=== PATIENT | male | born 1950 | race Caucasian/White ===

== ENCOUNTER 2016-11-24 07:09 | Day surgery (SDC) | payer MEDICARE, OTHER ==
[2016-11-22 14:29] LABS: MCH 31.3 pg (26.0-34.0); MCHC 34.1 g/dL (31.0-37.0); MCV 91.9 fL (80.0-100.0); MEAN PLATELET VOLUME 10.7 fL (7.4-10.4); RBC 4.79 10x6/uL (4.20-6.10); RDW 13.5 % (11.5-14.5); WBC 6.5 10x3/uL (4.8-10.8)
[2016-11-22 14:41] LABS: ANION GAP 13.9 mmol/L (8-16); CALCIUM 8.8 mg/dL (8.5-10.1); CARBON DIOXIDE 30.6 mmol/L (21.0-32.0); CREATININE - SERUM 1.2 mg/dL (0.6-1.3); POTASSIUM - SERUM 4.5 mmol/L (3.5-5.1)
[~2016-11-24] VITALS: Ht 160 cm; Wt 75.8 kg
[~2016-11-24 07:09] MED LIST: ADVAIR 250/501 DISK INH; BLACK CHERRY PO; CALTRATE-600600 MG PO; CARAFATE1 G PO; COREG6.25 MG PO; DAILY MULTIVITA1 TA1 PO; DEXILANT60 MG; DEXILANT60 MG PO; FERROUS SULFAT325 MG PO; GLUCOPHAGE500 MG PO; ISOSORBIDE MONO30 M1 PO; K-DUR20 MEQ PO; LANTUS SOL100 UNIT/1 SC; LASIX80 MG PO; LIPITOR10 MG PO; LISINOPRIL10 MG PO; LYRICA25 MG PO; MIRALAX17 GM PO; NEURONTIN 300300 MG PO; NITROMIST8.5 GM SL; PLAVIX75 MG PO; PREDNISONE1 MG PO; PREDNISONE10 MG PO; PROAIR HFA8.5 GM INH; RYBIX ODT50 MG PO; SINGULAIR10 MG PO; SLOW RELEASE I160 MG PO; TEGRETOL XR200 M1 PO; TEGRETOL200 MG PO; ULTRAM50 MG PO; VOLTAREN25 MG PO; VYVANSE20 MG PO; ZYLOPRIM300 MG PO
[2016-11-24] MEDS ORDERED: KLONOPIN0.5 MG PO (08:47)
[2016-11-24 08:54] VITALS: Ht 160 cm; Wt 75.8 kg
[2016-11-24] MEDS ORDERED: ULTRAM50 MG PO (12:12)
--- NOTE | 2016-11-24 15:45 | NUR ---
1330 IV DC WITH CATHER TIP INTACT,W/O REDNESS
--- NOTE | 2016-11-27 15:31 | OP ---
PATIENT NAME: SILVA SEPULVEDA MEDICAL RECORD: [id number] :52 LOCATION:[facility] ADMISSION DATE: SURGEON: ESVIN PUENTE MD DATE OF OPERATION: 11/24/2016 PREOPERATIVE DIAGNOSIS: Olecranon bursitis -- olecranon rheumatoid bursitis. POSTOPERATIVE DIAGNOSIS: Olecranon bursitis -- olecranon rheumatoid bursitis. PROCEDURE: Removal of a large olecranon bursa/rheumatoid nodule. SURGEON: Esvin Puente MD ANESTHESIA: General. INTRAOPERATIVE COMPLICATIONS: None. SUMMARY OF PATHOLOGIC FINDINGS: Consistent with preoperative diagnosis, the patient had a very large olecranon bursa filled with what appeared to be rheumatoid nodule material. OPERATIVE SUMMARY IN DETAIL: After obtaining the appropriate preoperative orthopedic surgery consent as well as anesthetic consultation, evaluation and clearance, the patient was brought to the operating room and placed on the operating table in supine position. After adequate general laryngeal mask was administered, tourniquet was placed about the proximal aspect of the left upper extremity. The left upper extremity was then prepped and draped in routine sterile fashion. The arm was elevated and exsanguinated, tourniquet inflated to 250 mmHg. Elliptical incision was made across the top to take a portion of the skin down and then dissection was carried out medially and laterally, proximally and distally completely around the large mass taken down to the level of the olecranon tip. The triceps insertional tendon was not violated although it did have some rheumatoid material in it. This was removed in its entirety en bloc and sent to pathology for permanent specimen. The wound was then copiously irrigated and closed with #1 Vicryl, 2-0 Vicryl and skin lukas. Sterile dressings were applied. Tourniquet was deflated. Posterior splint was applied. The patient was awakened, taken to recovery in stable condition. All final needle and sponge counts were correct. TRANSINT:[id number] Voice Confirmation ID: [id number] DOCUMENT ID: [id number] ESVIN PUENTE MD at 1531 CC: [id number] DICTATION DATE: 11/24/16 1206 DRAWING KILN SUPERVISOR: 11/24/16 1328 [facility] 11/24/16 [facility] [address] [place] [address]
== END 2016-11-24 14:00 | disposition home or self-care (01) ==
LOC: D.OPS 07:09 → D.PAN 09:30 → D.OPS 14:00 → D.PAN 15:15
PROVIDERS: Anesthesiology
DX: M70.22 Olecranon bursitis, left elbow (principal); I25.10 Atherosclerotic heart disease of native coronary artery without angina pectoris; I11.0 Hypertensive heart disease with heart failure; I50.9 Heart failure, unspecified; J44.9 Chronic obstructive pulmonary disease, unspecified; Z01.812 Encounter for preprocedural laboratory examination

== ENCOUNTER 2017-02-12 07:10 | Day surgery (SDC) | payer MEDICARE ==
--- NOTE | 2017-01-31 13:04 | NUR ---
JONNIE APPT; PATIENT REPORTS CURRENTLY TAKING PLAVIX 75MG WITH LAST DOSE THIS AM. DR. PUENTE'S STAFF, JOHNNY NOTIFIED. STATES CASE WILL BE RESCHEDULED. PATIENT NOTIFIED.
[~2017-02-12] VITALS: Ht 160 cm; Wt 75.3 kg
[~2017-02-12 07:10] MED LIST changes: +KLONOPIN0.5 MG PO; +NEURONTIN600 MG PO
[2017-02-12 07:48] LABS: HEMATOCRIT 42.1 % (42.0-54.0); HEMOGLOBIN 13.7 g/dL (13.5-17.5); MCH 30.2 pg (26.0-34.0); MCHC 32.5 g/dL (31.0-37.0); MCV 92.9 fL (80.0-100.0); MEAN PLATELET VOLUME 10.6 fL (7.4-10.4); RBC 4.53 10x6/uL (4.20-6.10); RDW 13.1 % (11.5-14.5)
[2017-02-12 07:57] LABS: CARBON DIOXIDE 33.2 mmol/L (21.0-32.0); CREATININE - SERUM 1.1 mg/dL (0.6-1.3); POTASSIUM - SERUM 4.2 mmol/L (3.5-5.1)
[2017-02-12 08:04] VITALS: BP 128/77; Ht 160 cm; Wt 75.3 kg
--- NOTE | 2017-02-12 10:42 | NUR ---
PT HAD BLOCK BY ANESTHESIA TO RIGHT ARM, SEE ANESTHESIA NOTES.
[2017-02-12] MEDS ORDERED: MEPERIDINE HCL50 MG PO (11:00)
--- NOTE | 2017-02-12 13:18 | OP ---
PATIENT NAME: SILVA SEPULVEDA MEDICAL RECORD: [id number] :52 LOCATION:[facility] ADMISSION DATE: SURGEON: ESIVN PUENTE MD DATE OF OPERATION: 02/12/2017 PREOPERATIVE DIAGNOSIS: Large olecranon bursal mass, right elbow. POSTOPERATIVE DIAGNOSIS: Large olecranon bursal mass, right elbow. PROCEDURE: Excision of large olecranon bursal mass. SURGEON: Esvin Puente MD ANESTHESIA: General. INTRAOPERATIVE COMPLICATIONS: None. SUMMARY OF PATHOLOGIC FINDINGS: Consistent with the other side, this patient had a large rheumatoid mass that measured approximately 10 cm x 8 cm x 8 cm, somewhat smaller than the other side but large yet. OPERATIVE SUMMARY IN DETAIL: After obtaining the appropriate orthopedic surgery consent as well as anesthetic consultation evaluation and clearance, the patient was brought to the operating room and placed on the operating table in supine position. After general laryngeal mask was administered, tourniquet was placed about the proximal aspect of the right upper extremity. Right upper extremity was prepped and draped in a routine sterile fashion. The arm was elevated and exsanguinated, tourniquet inflated to 250 mmHg. An incision was made in an elliptical fashion with a very large mass to leave a large portion in the skin behind. Serial and sequential dissection medially and laterally and proximally and distally were taken down at the edges and the care was taken to involve any exposure of the ulnar nerve. Dissection was carried down to the subperiosteal level and careful dissection across and around the tip of the olecranon was followed by complete excision of the mass. This was then sent to pathology for permanent specimen. Wound was then copiously irrigated and closed with #1 Vicryl followed by skin lukas. Sterile pressure dressings were applied. Tourniquet was deflated. The patient was awakened and taken to the recovery room in stable condition. All final needle and sponge counts were correct. TRANSINT:[id number] Voice Confirmation ID: [id number] DOCUMENT ID: [id number] ESVIN PUENTE MD at 1318 CC: [id number] DICTATION DATE: 02/12/17 1210 FORENSIC ANTHROPOLOGIST: 02/12/17 1254 PRE [facility] [address] [place] [address]
--- NOTE | 2017-02-12 16:28 | NUR ---
1215 IV DC WITH CATHER TIP INTACT
== END 2017-02-12 13:00 | disposition home or self-care (01) ==
LOC: D.OPS 07:10
PROVIDERS: Anesthesiology
DX: M06.321 Rheumatoid nodule, right elbow (principal); M10.9 Gout, unspecified; Z01.812 Encounter for preprocedural laboratory examination

== ENCOUNTER 2017-02-13 14:22 | Emergency (ER) | payer MEDICARE ==
[2017-02-12 08:04] VITALS: BMI 29.4
[~2017-02-13 14:22] MED LIST changes: +MEPERIDINE HCL50 MG PO
[2017-02-13 14:52] LABS: BASOPHILS 0.6 % (0-2); EOSINOPHILS 1.9 % (0-7); HEMATOCRIT 40.1 % (42.0-54.0); HEMOGLOBIN 13.2 g/dL (13.5-17.5); IMMATURE GRANULOCYTES 0.4 % (0-5); MCH 30.3 pg (26.0-34.0); MCHC 32.9 g/dL (31.0-37.0); MCV 92.2 fL (80.0-100.0); MEAN PLATELET VOLUME 11.2 fL (7.4-10.4); MONOCYTES 10.7 % (2-11); NEUTROPHILS 65.4 % (40-80); RBC 4.35 10x6/uL (4.20-6.10); RDW 13.2 % (11.5-14.5)
[2017-02-13 14:55] LABS: PLATELET COUNT 233 10x3/uL (130-400); WBC 8.2 10x3/uL (4.8-10.8)
[2017-02-13 15:06] LABS: ALBUMIN 3.5 g/dL (3.4-5.0); ALKALINE PHOSPHATASE 82 U/L (46-116); ALT (SGPT) 26 U/L (10-68); BILIRUBIN - TOTAL 0.27 mg/dL (0.2-1.3); CALC OSMOLALITY 278 mosm/kg (275-300); CALCIUM 9.3 mg/dL (8.5-10.1); CARBON DIOXIDE 32.1 mmol/L (21.0-32.0); CHLORIDE - SERUM 100 mmol/L (98-107); GLUCOSE 116 mg/dL (74-106); POTASSIUM - SERUM 3.6 mmol/L (3.5-5.1); PROTEIN - SERUM 7.3 g/dL (6.4-8.2); SODIUM 139 mmol/L (136-145); eGFR NON AFRICAN AMERICAN 79 mL/min (90-120)
[2017-02-13 15:07] LABS: UREA NITROGEN 13 mg/dL (7-18)
[2017-02-13 16:57] LABS: CARBAMAZEPINE (TEGRETOL) 10.8 ug/mL (4.0-12.0); CREATINE KINASE 145 UL (21-232); MAGNESIUM - SERUM 1.9 mg/dL (1.8-2.4)
[2017-02-13 16:58] LABS: TROPONIN-I < 0.017 ng/mL (0.000-0.060)
[2017-02-13 17:38] LABS: APPEARANCE CLEAR (CLEAR); BILIRUBIN NEGATIVE (NEGATIVE); COLOR YELLOW (YELLOW); GLUCOSE NEGATIVE (NEGATIVE); KETONE NEGATIVE (NEGATIVE); NITRITE NEGATIVE (NEGATIVE); PROTEIN NEGATIVE (NEGATIVE); UROBILINOGEN NORMAL (NORMAL)
== END 2017-02-13 19:38 | disposition home or self-care (01) ==
LOC: D.ER 14:22
PROVIDERS: Emergency Medicine; Nurse Practitioner Family
DX: Z86.69 Personal history of other diseases of the nervous system and sense organs (principal); R55 Syncope and collapse; I50.9 Heart failure, unspecified; Z86.73 Personal history of transient ischemic attack (TIA), and cerebral infarction without residual deficits

== ENCOUNTER → 2017-02-16 09:45 | Outpatient (CLI) | payer MEDICARE ==
[2017-02-12 08:04] VITALS: BMI 29.4
== END | disposition home or self-care (01) ==
LOC: D.US 09:45
DX: M79.89 Other specified soft tissue disorders (principal)

== ENCOUNTER 2017-08-15 14:57 | Emergency (ER) | payer MEDICARE ==
[2017-02-12 08:04] VITALS: BMI 29.4
[2017-08-15 15:29] LABS: BASOPHILS 0.6 % (0-2); EOSINOPHILS 2.6 % (0-7); HEMATOCRIT 37.7 % (42.0-54.0); HEMOGLOBIN 12.9 g/dL (13.5-17.5); IMMATURE GRANULOCYTES 0.4 % (0-5); LYMPHOCYTES 30.2 % (15-50); MCH 31.2 pg (26.0-34.0); MCHC 34.2 g/dL (31.0-37.0); MCV 91.3 fL (80.0-100.0); MEAN PLATELET VOLUME 10.8 fL (7.4-10.4); MONOCYTES 9.5 % (2-11); NEUTROPHILS 56.7 % (40-80); RBC 4.13 10x6/uL (4.20-6.10); RDW 13.7 % (11.5-14.5); WBC 5.4 10x3/uL (4.8-10.8)
[2017-08-15 15:37] LABS: PLATELET COUNT 185 10x3/uL (130-400)
[2017-08-15 15:38] LABS: APPEARANCE CLEAR (CLEAR); COLOR YELLOW (YELLOW)
[2017-08-15 15:39] LABS: BILIRUBIN NEGATIVE (NEGATIVE); GLUCOSE NEGATIVE (NEGATIVE); KETONE NEGATIVE (NEGATIVE); NITRITE NEGATIVE (NEGATIVE); PROTEIN NEGATIVE (NEGATIVE); UROBILINOGEN NORMAL (NORMAL)
[2017-08-15 15:50] LABS: ALBUMIN 3.3 g/dL (3.4-5.0); ALKALINE PHOSPHATASE 69 U/L (46-116); ALT (SGPT) 23 U/L (10-68); BILIRUBIN - TOTAL 0.27 mg/dL (0.2-1.3); CALC OSMOLALITY 288 mosm/kg (275-300); CALCIUM 8.9 mg/dL (8.5-10.1); CARBON DIOXIDE 31.5 mmol/L (21.0-32.0); CHLORIDE - SERUM 104 mmol/L (98-107); GLUCOSE 111 mg/dL (74-106); PROTEIN - SERUM 6.4 g/dL (6.4-8.2); SODIUM 143 mmol/L (136-145); UREA NITROGEN 22 mg/dL (7-18); eGFR NON AFRICAN AMERICAN 79 mL/min (90-120)
[2017-08-15 15:54] LABS: CREATINE KINASE 72 UL (21-232)
[2017-08-15 15:55] LABS: TROPONIN-I < 0.017 ng/mL (0.000-0.060)
== END 2017-08-15 17:19 | disposition home or self-care (01) ==
LOC: D.ER 14:57
PROVIDERS: Family Medicine
DX: T67.5XXA Heat exhaustion, unspecified, initial encounter (principal); X58.XXXA Exposure to other specified factors, initial encounter; Y93.89 Activity, other specified; Y92.89 Other specified places as the place of occurrence of the external cause; R55 Syncope and collapse; R53.83 Other fatigue; R51 Headache; R11.0 Nausea

== ENCOUNTER 2017-09-20 17:33 | Emergency (ER) | payer MEDICARE ==
[~2017-09-20] VITALS: Ht 160 cm; Wt 74.8 kg
[2017-09-20 17:40] VITALS: Ht 160 cm; Wt 74.8 kg
[2017-09-20 18:17] LABS: BASOPHILS 0.5 % (0-2); EOSINOPHILS 1.2 % (0-7); HEMATOCRIT 39.9 % (42.0-54.0); HEMOGLOBIN 13.1 g/dL (13.5-17.5); IMMATURE GRANULOCYTES 0.3 % (0-5); LYMPHOCYTES 11.3 % (15-50); MCH 31.3 pg (26.0-34.0); MCHC 32.8 g/dL (31.0-37.0); MCV 95.5 fL (80.0-100.0); MEAN PLATELET VOLUME 10.6 fL (7.4-10.4); MONOCYTES 6.6 % (2-11); NEUTROPHILS 80.1 % (40-80); PLATELET COUNT 223 10x3/uL (130-400); RBC 4.18 10x6/uL (4.20-6.10); RDW 14.2 % (11.5-14.5); WBC 9.4 10x3/uL (4.8-10.8)
[2017-09-20 18:33] LABS: ALKALINE PHOSPHATASE 74 U/L (46-116); ALT (SGPT) 20 U/L (10-68); BILIRUBIN - TOTAL 0.24 mg/dL (0.2-1.3); CALC OSMOLALITY 285 mosm/kg (275-300); CALCIUM 8.7 mg/dL (8.5-10.1); CARBON DIOXIDE 32.9 mmol/L (21.0-32.0); CHLORIDE - SERUM 105 mmol/L (98-107); CREATININE - SERUM 1.7 mg/dL (0.6-1.3); GLUCOSE 104 mg/dL (74-106); POTASSIUM - SERUM 4.8 mmol/L (3.5-5.1); PROTEIN - SERUM 7.5 g/dL (6.4-8.2); SODIUM 142 mmol/L (136-145); UREA NITROGEN 21 mg/dL (7-18); eGFR NON AFRICAN AMERICAN 43 mL/min (90-120)
[2017-09-20 18:55] LABS: CKMB 0.9 U/L (0.0-3.6); TROPONIN-I < 0.017 ng/mL (0.000-0.060)
[2017-09-20 20:29] VITALS: BP 156/85
== END 2017-09-20 20:29 | disposition home or self-care (01) ==
LOC: D.ER 17:33
PROVIDERS: Family Medicine
DX: R00.2 Palpitations (principal); Z86.79 Personal history of other diseases of the circulatory system; E11.9 Type 2 diabetes mellitus without complications; I10 Essential (primary) hypertension; J44.9 Chronic obstructive pulmonary disease, unspecified

== ENCOUNTER 2017-11-09 08:09 | Emergency (ER) | payer MEDICARE ==
[~2017-11-09] VITALS: Ht 160 cm; Wt 75.9 kg
[2017-11-09 08:11] VITALS: Ht 160 cm; Wt 75.9 kg
[2017-11-09] MEDS ORDERED: NORCO 7.5/325 T1 TA1 PO (08:49)
[2017-11-09 09:55] VITALS: BP 156/81
== END 2017-11-09 09:55 | disposition home or self-care (01) ==
LOC: D.ER 08:09
DX: S89.91XA Unspecified injury of right lower leg, initial encounter (principal); X50.1XXA Overexertion from prolonged static or awkward postures, initial encounter; Y93.89 Activity, other specified; Y92.828 Other wilderness area as the place of occurrence of the external cause; Z86.73 Personal history of transient ischemic attack (TIA), and cerebral infarction without residual deficits; G40.909 Epilepsy, unspecified, not intractable, without status epilepticus; E11.9 Type 2 diabetes mellitus without complications; I10 Essential (primary) hypertension; K21.9 Gastro-esophageal reflux disease without esophagitis

== ENCOUNTER → 2017-11-27 13:18 | Outpatient (CLI) | payer MEDICARE, OTHER ==
[2017-11-09 08:11] VITALS: BMI 29.6
[~2017-11-27 13:18] MED LIST changes: +NORCO 7.5/325 T1 TA1 PO
== END | disposition home or self-care (01) ==
LOC: D.MRI 13:18
DX: M25.561 Pain in right knee (principal)

== ENCOUNTER 2018-02-09 19:57 | Inpatient (IN) | payer MEDICARE, OTHER ==
[~2018-02-09] VITALS: Ht 160 cm; Wt 77.1 kg
--- NOTE | ~2018-02-09 | HEMODYNAMI ---
PATIENT:SILVA SEPULVEDA MEDICAL RECORD: [id number] : 52 [facility] [address] [id number] ADMISSION DATE: 02/10/18 Generatedon:02/12/201812:39 Patient name: SILVA SEPULVEDA Patient #: [id number] SSN: D OB: 1950 Date of study: 02/12/2018 Page: Of Hemodynamic Procedure Report Patient Data Patient Demographics Procedure consent was obtained First Name: SILVA Gender: Male Last Name: COCO : 1950 [facility] Initial: L Age: 68 year(s) Patient #: [id number] Race: Additional ID: [id number] Contact details [address]: [address] [place] [address] State: [place] City: [place] Zip code: [address] Admission Admission Data Admission Date: 02/10/2018 Admission Time: 1:40 Room #: D.2125 Lab Results Lab Result Date: 02/12/2018 Lab Result Time: 0:00 Biochemistry Name Units Result Min Max BUN mg/dl 21 --(----)-* 7 18 Creatinine mg/dl 1 --(--*-)-- 0.6 1.3 CBC Name Units Result Min Max Hemoglobin g/dl 13.7 --(*---)-- 13.5 17.5 Procedure Procedure Types Cath Procedure Diagnostic Procedure LHC LH w/Coronaries FFR/IVUS Intra-Coronary IVUS Initial Sedation Charges Moderate Sedation up to 15 minutes PCI Procedure Coronary Stent Coronary Stent Initial Peripheral Cath Diagnostic Procedure Table Assembler Peripheral Procedures Atgcg-Jskgfmj-Bps-Off Four Vessel Arteriogram Procedure Description Procedure Date Procedure Date: 02/12/2018 Procedure Start Time: 12:15 Procedure End Time: 12:37 Procedure Staff Name Function Gunnar Lovell MD Performing Physician Candice Catherine RT Monitor Yuridia Tobar RT Scrub Ramone Betancourt RN Nurse Procedure Data Cath Procedure Fluoroscopy Diagnostic fluoroscopy Total fluoroscopy Time: 5.9 time: 5.9 min min Diagnostic fluoroscopy Total fluoroscopy dose: dose: 1181 mGy 1181 mGy Contrast Material Contrast Material Type Amount (ml) Isovue 300 132 Entry Location Entry Primary Successful Side Size Upsize Upsize Entry Closure Succes sful Closure Location (Fr) 1 (Fr) 2 (Fr) Remarks Device Remarks Femoral Right 5 Fr 6 Fr Exoseal artery Short Estimated blood loss: 5 ml Diagnostic catheters Device Type Used For End Catheter Placement MULTIPACK Pigtail 5 Fr Multi-vessel catheter Angiography MULTIPACK JL 4.0 5Fr Left Coronary catheter Angiography MULTIPACK 3DRC 5Fr Right Coronary catheter Angiography Procedure Complications No complications Procedure Medications Medication Administration Route Dosage 0.9% NaCl I.V. 100 ml/hr Oxygen etCO2 Nasal cannula 2 l/min Heparin Flush Bag added to field 2 bags (1000units/500ml NS) Lidocaine 2% added to field 20 Versed I.V. 1 mg Fentanyl I.V. 50 mcg Versed I.V. 1 mg Fentanyl I.V. 50 mcg Heparin Bolus I.V. 4000 units Hemodynamics Rest HGB: 13.7 (g/dl) Heart Rate: 77 (bpm) Pressure Samples Time Site Value (mmHg) Purpose Heart Use Rate(bpm) 12:18 LV 135/39,45 Snapshot 89 Snapshots Pre Cath Intra NCS Post Cath Vital Signs Time Heart Resp SPO2 etCO2 NIBP (mmHg) Rhythm Pain Sedation Rate (ipm) (%) (mmHg) Status Level (bpm) 11:57:30 86 19 98 16.5 143/83(121) NSR 0 (11) 10(A) , No pain 12:01:44 87 19 97 33.9 130/85(107) NSR 0 (11) 10(A) , No pain 12:05:54 87 14 97 39.2 139/84(121) NSR 0 (11) 10(A) , No pain 12:10:04 91 14 97 33.1 126/88(106) NSR 0 (11) 10(A) , No pain 12:14:12 90 12 97 32.4 121/82(100) NSR 0 (11) 10(A) , No pain 12:18:15 90 20 97 38.4 123/88(119) NSR 0 (11) 10(A) , No pain 12:22:23 85 20 97 34.6 134/78(112) NSR 0 (11) 10(A) , No pain 12:26:33 87 15 97 41.4 125/84(104) NSR 0 (11) 10(A) , No pain 12:30:43 86 16 96 36.9 129/73(104) NSR 0 (11) 10(A) , No pain 12:34:53 90 22 97 39.2 133/80(108) NSR 0 (11) 10(A) , No pain Medications Time Medication Route Dose Verified Delivered Reason Notes Effectiveness by by 11:55:41 0.9% NaCl I.V. 100 Ramone Ramone Per physician ml/hr Asia Betancourt RN RN 11:56:01 Oxygen etCO2 2 Ramone Ramone Per physician Nasal l/min Asia Betancourt cannula RN RN 11:56:13 Heparin Flush added 2 Ramone Ramone used for Bag to bags Asia Betancourt procedure (1000units/500ml field RN RN NS) 11:56:24 Lidocaine 2% added 20ml Ramone Ramone for local to vial Asia Betancourt anesthetic field RN RN 12:14:30 Versed I.V. 1 mg Ramone Ramone for sedation Asia Betancourt RN RN 12:14:39 Fentanyl I.V. 50 Ramone Ramone for sedation mcg Asia Betancourt RN RN 12:16:48 Versed I.V. 1 mg Ramone Ramone for sedation Asia Betancourt RN RN 12:16:54 Fentanyl I.V. 50 Ramone Ramone for sedation mcg Asia Betancourt RN RN 12:33:26 Heparin Bolus I.V. 4000 Ramone Ramone for units Asia Betancourt anticoagulation RN manager hospice Log Time Note 11:42:25 Informed consent obtained and on chart 11:43:11 Ramone Betancourt RN sent for patient. Start room use. 11:43:12 Time tracking: Regular hours (M-F 7:00 - 5:00) 11:43:17 Plan of Care:Hemodynamics will remain stable., Cardiac rhythm will remain stable., Comfort level will be maintained., Respiratory function will remain adequate., Patient/ family verbilizes understanding of procedure., Procedure tolerated without complication., Recovers from procedure without complications.. 11:45:58 Patient received from Med/Surg to CCL 2 Alert and oriented. Tansferred to table in Supine position. 11:45:59 Warm blankets applied, and everardo hugger turned on for patient comfort. 11:46:00 Correct patient and procedure confirmed by team. 11:46:01 ECG and BP/O2 sat monitors applied to patient. 11:55:41 0.9% NaCl 100 ml/hr I.V. was administered by Ramone Betancourt RN; Per physician; 11:56:01 Oxygen 2 l/min etCO2 Nasal cannula was administered by Ramone Betancourt RN; Per physician; 11:56:13 Heparin Flush Bag (1000units/500ml NS) 2 bags added to field was administered by Ramone Betancourt RN; used for procedure; 11:56:24 Lidocaine 2% 20ml vial added to field was administered by Ramone Betancourt RN; for local anesthetic; 11:56:28 Vital chart was started 11:57:37 Baseline sample Acquired. 11:57:41 Rhythm: sinus rhythm 11:57:43 Full Disclosure recording started 11:57:47 H&P Date Dictated: 02/12/2018 Within 30 days and on chart., H&P Addendum completed by physician on day of procedure. (MUST COMPLETE FOR ALL OUTPATIENTS). 11:57:48 Pre-procedure instructions explained to patient. 11:57:49 Pre-op teaching completed and patient verbalized understanding. 11:57:50 Family in waiting room. 11:57:51 Patient NPO since Midnight. 11:57:54 Is the patient allergic to Iodine/contrast media? No. 11:57:55 Was the patient premedicated? No 11:57:56 Is patient on blood thinner?Yes 11:57:58 ACC The patient was administered the following blood thiners within the last 24 hours: ACCPlavix 11:58:00 Patient diabetic? Yes. 11:58:01 If diabetic: On Metformin? No 11:58:04 Previous problem with sedation/anesthesia? No ? 11:58:05 Snore? Yes 11:58:06 Sleep apnea? Yes 11:58:07 Deviated septum? No 11:58:08 Opens mouth fully? Yes 11:58:09 Sticks out tongue? Yes 11:58:12 Airway obstruction? Yes copd 11:58:16 Dentures? Yes out 11:58:20 Pre procedure: right dorsailis pedis pulse 1+ Palpable, but thready & weak; easily obliterated 11:58:22 Pre procedure: left dorsailis pedis pulse 1+ Palpable, but thready & weak; easily obliterated 11:58:24 Patient pain scale 0/10 ?. 11:58:31 IV patent on arrival in right antecubital, left antecubital with 0.9% NaCl at KVO. 11:58:33 Lab results completed and on chart. 11:58:37 Right groin area was prepped with chlora-prep and draped in sterile fashion 11:58:37 Alarms reviewed by R. N. 11:58:38 Sharps counted by scrub and verified by R.N. 12:00:15 Lab Result : Hemoglobin 13.7 g/dl 12:00:15 Lab Result : Creatinine 1 mg/dl 12:00:15 Lab Result : BUN 21 mg/dl 12:00:48 Physician paged 12:12:59 Physician arrived 12:13:00 --------ALL STOP TIME OUT------ 12:13:00 Final Timeout: patient, procedure, and site verified with staff and physician. All members of the team are in agreement. 12:13:04 Right groin site verified by team. 12:13:07 Physical assessment completed. ASA score P 2 - A patient with mild systemic disease as per Gunnar Lovell MD. 12:13:11 Sedation plan: IV Moderate Sedation Medication:Versed, Fentanyl 12:13:17 Use device set Femoral Dx 12:13:18 ACIST Syringe (77857) opened to sterile field. 12:13:18 Bag Decanter (2002) opened to sterile field. 12:13:19 Medline Cath Pack ([id number]) opened to sterile field. 12:13:20 DIAGNOSTIC WIRE .035 260cm J wire (333827) opened to sterile field. 12:13:21 ACIST Hand Control (68336) opened to sterile field. 12:13:21 ACIST Manifold (84670) opened to sterile field. 12:13:22 DIAGNOSTIC Multipack 5Fr catheter set (OJ4214) opened to sterile field. 12:13:22 Tegaderm 4 x 4 (1626W) opened to sterile field. 12:13:23 SHEATH 5FR Vernalis (DZN128) opened to sterile field. 12:14:30 Versed 1 mg I.V. was administered by Ramone Betancourt RN; for sedation; 12:14:39 Fentanyl 50 mcg I.V. was administered by Ramone Betancourt RN; for sedation; 12:15:03 Procedure started. 12:15:11 Local anesthetic to right femoral artery with Lidocaine 2% by Gunnar Lovell MD.INITIAL ACCESS ONLY 12:15:21 A 5 Fr sheath was inserted into the Right Femoral artery 12:16:48 Versed 1 mg I.V. was administered by Ramone Betancourt RN; for sedation; 12:16:54 Fentanyl 50 mcg I.V. was administered by Ramone Betancourt RN; for sedation; 12:17:00 A MULTIPACK Pigtail 5 Fr catheter was advanced over the wire and used for Multi-vessel Angiography. 12:18:02 LV hemodynamics recorded. 12:18:03 LV gram done using ARREDONDO 12:18:07 Injector settings: Ml/sec: 5, Volume: 15, 12:18:13 EF : 60 % 12:18:19 Abdominal angiogram w/ runoff was performed. 12:18:26 Injector settings: Ml/sec: 10, Volume: 20, 12:19:40 Catheter removed. 12:20:18 A MULTIPACK JL 4.0 5Fr catheter was advanced over the wire and used for Left Coronary Angiography. 12:20:22 LCA angiography performed. 12:20:26 Injector settings: Ml/sec: 3, Volume: 6, 12:21:53 Baseline sample Acquired. 12:22:03 Catheter removed. 12:22:08 A MULTIPACK 3DRC 5Fr catheter was advanced over the wire and used for Right Coronary Angiography. 12:22:26 RCA angiography performed. 12:22:33 Injector settings: Ml/sec: 3, Volume: 6, 12:23:03 Bilateral carotid angiography performed. 12:23:31 Left subclavian angiography performed 12:27:17 Injector settings: Ml/sec: 3, Volume: 6, 12:27:18 Catheter removed. 12:27:19 Proceeding to intervention. 12::55 SHEATH 6FR Vernalis (UYS164) opened to sterile field. 12:27:56 INFLATOR Merit BasixCompak (ZX3468) opened to sterile field. 12:27:56 CHOICE PT Extra Support 182cm wire ([id number]) opened to sterile field. 12:27:57 Alexander [place] Eagleye IVUS Catheter (86309X) opened to sterile field. 12:27:57 GUIDE 6FR XBLAD 3.5 catheter ([id number]) opened to sterile field. 12:28:17 Sheath upsized to a 6 Fr Short. 12:28:24 6 Fr xblad 3.5 guide catheter was inserted over the wire 12::29 choice pt wire advanced. 12::34 Wire advanced across lesion. 12:28:40 IVUS catheter advanced over wire. 12:31:51 IVUS pass to LAD lesion performed. 12:31:52 IVUS catheter removed over wire. 12:33:26 Heparin Bolus 4000 units I.V. was administered by Ramone Betancourt RN; for anticoagulation; 12:33:46 Inflate balloon Inflation number: 1 A INTEGRITY RX 3.5 x 15 stent ([id number]) was prepped and advanced across the Mid LAD, then inflated to 13 CELESTINA for 0:10 (min:sec). 12:35:05 Stent catheter was removed intact over wire. 12:35:05 Wire removed. 12:35:06 Guide catheter removed. 12:35:12 EXOSEAL 6Fr (EX600) opened to sterile field. 12:35:22 Sheath removed intact; hemostasis achieved with Exoseal to the Right Femoral artery. 12:35:24 Procedure ended.(Physican Out) 12:35:38 Fluoroscopy time 05.90 minutes. 12:35:43 Fluoroscopy dose: 1181 mGy 12:35:43 Flurop Dose total: 1181 12:35:46 Contrast amount:Isovue 300 132ml. 12:35:53 Sharps counted by scrub and verified by R.N. 12:35:54 Insertion/operative site no bleeding no hematoma. 12:35:57 Post-op/insertion site Right Femoral artery dressed using a 4 x 4 and Tegaderm. 12:35:59 Post Procedure Pulses reassessed and unchanged 12:36:01 Post procedure rhythm: unchanged. 12:36:04 Estimated blood loss: 5 ml 12:36:05 Post procedure instruction explained to patient.Patient verbalizes understanding. 12:36:06 Patient needs reinforcement of post procedure teaching. 12:36:36 Procedure type changed to Cath procedure, Diagnostic procedure, LHC, LHC w/Coronaries, FFR/IVUS, Intra-Coronary IVUS Initial, Sedation Charges, Moderate Sedation up to 15 minutes, PCI procedure, Coronary Stent, Coronary Stent Initial, Peripheral Cath Diagnostic Procedure, Table Assembler Peripheral Procedures, Lkmea-Wwzlbxa-Err-Off, Four Vessel Arteriogram 12:36:37 Procedure and supply charges have been captured, reviewed, submitted and are correct. 12:36:41 Procedure Complication : No complications 12:36:43 Vital chart was stopped 12:36:43 See physician's report for complete and final results. 12:37:23 Report given to [facility]. 12:37:25 Patient transfered to [facility] with Stretcher. 12:37:27 Procedure ended. 12:37:27 Full Disclosure recording stopped 12:37:38 ACC-PCI Only Patient was given prescriptions, or instructed by Gunnar Lovell MD to start/continue the following medications upon discharge: Plavix 12:37:39 End room use (Document Last) Intervention Summary Intervention Notes Time ActionType Lesion and Equipment Action# Pressure Duration Attributes Used 12:33:46 Inflate Mid LAD INTEGRITY RX 1 13 00:10 balloon 3.5 x 15 stent ([id number]) Device Usage Item Name Manufacture Quantity Catalog Number Hospital Part Current Mini mal Lot# / Charge Number Stock Stock Serial# Code ACIST Acist 1 72148 336984 079412 743301 20 Syringe Medical (25825) Systems Inc Bag Decanter Microtek 1 2001S 995472 57090 180141 5 () Medical Inc. Medline Cath Medline 1 [id number] 488987 93362 185091 5 Pack ([id number]) DIAGNOSTIC St Juan Alberto 1 147299 470204 471409 775021 30 WIRE .035 260cm J wire (374352) ACIST Hand Acist 1 71195 792252 799025 363063 5 Control Medical (24710) Systems Inc ACIST Acist 1 55361 785489 269025 622660 5 Manifold Medical (13275) Systems Inc DIAGNOSTIC Cardinal 1 PI7410 055605 31503 036089 30 Solid Sound 5Fr catheter set (WU2639) Tegaderm 4 x 3M 1 1626W 507138 302722 722350 5 4 (1626W) SHEATH 5FR Terumo 1 OMC424 622691 632667 576167 40 Vernalis (KBV751) MULTIPACK Cardinal 1 855506 5 Pigtail 5 Fr Health catheter MULTIPACK JL Cardinal 1 280246 5 4.0 5Fr Health catheter MULTIPACK Cardinal 1 659220 5 3DRC 5Fr Health catheter SHEATH 6FR Terumo 1 NQG999 788247 384154 360004 40 Vernalis (PRW263) INFLATOR Merit 1 QQ4222 242501 248605 989269 15 [facility] Medical BasixCompak (RC0383) CHOICE PT [place] 1 [id number] 136315 963636 148274 5 Extra Scientific Support 182cm wire ([id number]) Alexander Alexander 1 50655C 498916 823136 911154 8 [place] Eagleye IVUS Catheter (98747C) GUIDE 6FR Cardinal 1 [id number] 947235 755682 957570 10 XBLAD 3.5 Health catheter (93140786) INTEGRITY RX Medtronic 1 [id number] 942336 796745 818617 5 [id number] 3.5 x 15 stent ([id number]) EXOSEAL 6Fr Cardinal 1 EX600 917639 085687 945647 10 (EX600) Health Signature Audit [place] Stage Time Signature Unsigned Intra-Procedure 02/12/2018 Candice Catherine 12:39:27 PM RT(R) Signatures Monitor : Candice Catherine RT Signature : Date : Time : [facility] [address] [place] [address]
--- NOTE | ~2018-02-09 | EC ---
PATIENT:SILVA SEPULVEDA DATE OF SERVICE: 02/10/18 SEX: M MEDICAL RECORD: [id number] DATE OF : 52 LOCATION:D.M2 D.212 AGE OF PATIENT: 68 ADMISSION DATE: 02/10/18 REFERRING PHYSICIAN: INTERPRETING PHYSICIAN: KIMBERLEY CARPIO MD ECHOCARDIOGRAM REPORT ECHO CHARGES 4 ECHO COMPLETE Date: 02/11/18 CLINICAL DIAGNOSIS: POSSIBLE EMBOLUS LEFT UPPER EXTREMITY - R/O PFO ECHOCARDIOGRAPHIC MEASUREMENTS (adult normal given) AC root (d.<3.7cm) 2.8 cm LV Septum d (<1.2 cm> 1.0 cm Valve Excursion 1.7 cm LV Septum (systole) 1.6 cm Left Atria (s.<4.0cm> 2.9 cm LVPW d(<1.2cm) 1.3 cm RV (d.<2.3cm) 2.5 cm LVPW (sytole) 1.7 cm LV diastole(<5.6CM) 3.5 cm MV E-F(>70mm/sec) cm LV systole 2.1 cm LVOT Diameter 1.6 cm MV exc.(>10mm) cm Est.ejection fraction (50-75%) % DOPPLER: LVIT cm/sec A 87.0 cm/sec E 57.0 cm/sec LA cm/sec RVSP 17.0 mmHg LVOT 90.0 cm/sec AOP1/2T m/s Asc. Ao 139 cm/sec RVOT 89.0 cm/sec RA cm/sec PA 101 cm/sec AV Gradient Peak 7.7 mmHg AV Mean 4.2 mmHg AV Area 1.1 cm MV Gradient Peak 4.5 mmHg MV Mean 1.6 mmHg MV Area cm COMMENTS: ECHO WITH BUBBLE STUDY Surgical Processor: 1 DELFINA SHINE Vortex Operator: 2 Dr. Wiggins TAPE# PACS Pericardial Effusion N DATE OF SERVICE: 02/11/2018 ECHOCARDIOGRAM WITH BUBBLE STUDY FINDINGS: 1. Left ventricular chamber size is within normal limits. Left ventricular systolic function is normal. Overall ejection fraction estimated at 60%. 2. Left atrium, right atrium, and right ventricle chamber sizes are within normal limits. 3. Valvular structures have normal structure and motion. ECHOCARDIOGRAM REPORT [id number] SILVA SEPULVEDA 4. Doppler interrogation reveals no significant valvular insufficiency or stenosis. 5. No evidence of pericardial effusion or left ventricular thrombus. 6. Bubble study was performed. There is no evidence of krwt-am-jfjba or zpdgq-hm-qsue shunt. 7. No cardiac source of neurologic emboli. TRANSINT:[id number] Voice Confirmation ID: [id number] DOCUMENT ID: [id number] KIMBERLEY CARPIO MD at 1704 CC: [id number] DICTATION DATE: 02/11/18 1307 MAINTENANCE REPAIRER: 02/11/18 [address] [facility] [address] [place] [address]
--- NOTE | ~2018-02-09 | OP ---
PATIENT NAME: SILVA SEPULVEDA MEDICAL RECORD: [id number] :52 LOCATION:D.M2 D.2125 ADMISSION DATE:02/10/18 SURGEON: KIMBERLEY CARPIO MD DATE OF OPERATION: 02/12/2018 PROCEDURES: 1. PTCA and stent, LAD. 2. Intravascular ultrasound. 3. Left heart catheterization. 4. Selective coronary angiography. 5. Left ventriculogram. INDICATION: Chest pain compatible with angina and coronary artery disease. PROCEDURE PERFORMED: After informed consent was obtained with detailed description of risks and benefits as well as alternative therapies, the patient elected to proceed with angiogram and angioplasty. The right femoral area was prepped and draped in normal sterile fashion. The right femoral artery was cannulated via modified Seldinger technique with placement of 6-Mohawk sheath. All catheters were exchanged through the sheath. FINDINGS: Left ventriculogram performed in standard 30-degree ARREDONDO view reveals good cardiac wall motion throughout all segments. Overall ejection fraction estimated at 60%. SELECTIVE CORONARY ANGIOGRAPHY: 1. Left main is with no significant angiographic disease. 2. Left anterior descending has 70% to 80% stenosis in the mid vessel, confirmed by intravascular ultrasound. 3. Left circumflex has moderate irregularities, but no flow-limiting stenosis. 4. Right coronary has moderate irregularities, but no flow-limiting stenosis. PTCA AND STENT OF THE LAD: The stent used was 3.5 x 15-mm Integrity. Result was 0% residual stenosis. OVERALL IMPRESSION: Successful PTCA and stent of the LAD, going from 70% to 80% initial stenosis to 0% residual. TRANSINT:[id number] Voice Confirmation ID: [id number] DOCUMENT ID: [id number] KIMBERLEY CARPIO MD at 1704 CC: [id number] DICTATION DATE: 02/12/18 1251 RAIL CAR WELDER: 02/12/18 1420 ADM IN [place] [id number] [place] [address]
--- NOTE | ~2018-02-09 | HP ---
PATIENT: SILVA SEPULVEDA MEDICAL RECORD: [id number] ACCOUNT: [id number] LOCATION:D.MS [id number] : 52 ADMISSION DATE: 02/10/18 PCP: No PCP HISTORY AND PHYSICAL EXAMINATION DATE OF ADMISSION: 02/10/2018. CHIEF COMPLAINT: Left arm pain and numbness and chest pain. HISTORY OF PRESENT ILLNESS: This is a 68-year-old white male who presented to the Emergency Department with acute onset of chest pain that started on 02/09/2018. He had a little shortness of breath, some nausea. Pain was more on the left side of his chest, it was more sharp to dull. He denies any trauma. He started having some pain and numbness all the way down his left arm into his hands as well. He was able to move his arm without difficulty. He presented to the Emergency Room where all his lab work looks pretty good, except he had really no palpable pulse in the distal radial artery on the left arm, a pulse was detected on Doppler exam. An arterial Doppler of the left arm was done showing monophasic waveform suggesting some degree of arterial disease. He is admitted. PAST MEDICAL HISTORY: He has had CVAs in the past. He has peripheral neuropathy, history of seizures, diabetes, hypertension, COPD, osteoarthritis, reflux, history of kidney stones, post-polio syndrome. PAST SURGICAL HISTORY: He states he had 16 surgeries on leg as a young child due to polio. He has had an appendectomy, hernia repair. The patient had angiogram done on 07/27/[address] Wiggins that showed mild coronary disease with 30% stenosis in the circumflex artery, which appeared unchanged from previous study. He has had no stents. He is continuing medical management for heart disease. ALLERGIES: SHELLFISH, IODINE, CODEINE. He states ASPIRIN causes him to "bleed out." He is allergic to TOMATOES. Reported allergy to MORPHINE (previous addiction). He states he cannot take IV DYE, although he did have dye with his angiogram in July of 2015. HOME MEDICATIONS: Tegretol 200 mg twice a day, Lyrica 50 mg twice a day, ProAir HFA inhaler p.r.n. wheezing, Lantus 20 units at bedtime, Dexilant 60 mg once a day, K-Dur 20 mEq once a day, allopurinol 150 mg once a day, Plavix 75 mg once a day, Lipitor 10 mg once a day, Singulair 10 mg once a day, carvedilol 6.25 mg twice a day, lisinopril 10 mg once a day, Lasix 80 mg once a day, gabapentin 600 mg twice a day, prednisone 1 mg once a day, iron sulfate twice a day, Klonopin 0.5 mg t.i.d. p.r.n. anxiety. HABITS: Former smoker, no alcohol or drugs, but he is a former drug user. SOCIAL HISTORY: He is single, disabled. He has a brother and a sister and mother that live in [place]. FAMILY HISTORY: Father at 66 of an ND. Mother is alive at 87. She has a history of heart trouble. REVIEW OF SYSTEMS: GENERAL: No major weight changes. HISTORY AND PHYSICAL [id number] SILVA SEPULVEDA HEENT: No particular sinus or allergy problems. RESPIRATORY: He has a history of COPD, though not on any chronic meds for that. CARDIAC: He has history of mild coronary artery disease followed by Dr. Wiggins. GASTROINTESTINAL: He has reflux followed by Dr. George. GENITOURINARY: Remote history of kidney stones. MUSCULOSKELETAL: He has had a generalized muscular aches and pains with Postpolio syndrome. NEUROLOGIC: He has had history of strokes and seizures. PSYCHIATRIC: He has some depression and anxiety. PHYSICAL EXAMINATION: VITAL SIGNS: Temperature 97.4, pulse 64, respirations 18, blood pressure 119/62. GENERAL: He is awake and alert. He does not appear to be in acute distress. SKIN: Warm and dry. HEENT: Grossly within normal limits. NECK: Supple. No JVD or bruit. HEART: Regular rate and rhythm without murmur. LUNGS: Clear. ABDOMEN: Soft, flat, nontender. EXTREMITIES: No edema. The distal radial pulse on the right upper extremity is 2+. The distal radial pulse on the left upper extremity, unable to palpate though it is obtainable with Doppler. NEUROLOGIC: He moves both arms and hands without difficulty. LABORATORY DATA: CBC is unremarkable. CMP is unremarkable. INR 1.2. Troponin is normal. CRP is normal. Chest x-ray shows no acute process. CT of the head shows no acute intracranial problem. The arterial Doppler of left upper extremity shows monophasic waveforms. Flow was detected throughout the left upper extremity, but the monophasic waveforms suggest some degree of arterial disease. ASSESSMENT: 1. Left upper extremity arterial blockage. 2. Diabetes. 3. Coronary artery disease, mild. 4. Hypertension. PLAN: Dr. Ervin has been consulted. We will monitor blood pressure and diabetes. Other tests and procedures as warranted. TRANSINT:[id number] Voice Confirmation ID: [id number] DOCUMENT ID: [id number] MAGUI FORD MD at 2144 CC: [id number] DICTATION DATE: 02/10/18 1013 SENIOR EXAMINER: 02/10/18 1027 ADM IN [facility] [address] [id number]
--- NOTE | ~2018-02-09 | OP ---
PATIENT NAME: SILVA SEPULVEDA MEDICAL RECORD: [id number] :52 LOCATION:D.M2 D.2125 ADMISSION DATE:02/10/18 SURGEON: KIMBERLEY CARPIO MD DATE OF OPERATION: 02/12/2018 PROCEDURES: 1. Four-vessel carotid and vertebral angiography with subclavian angiography. 2. Aortofemoral runoff. 3. Abdominal aortography. INDICATION: Possible subclavian stenosis, peripheral vascular disease. PROCEDURE IN DETAIL: After informed consent was obtained with detailed description of risks and benefits as well as alternative therapies, the patient elected to proceed with angiogram. The right femoral area had a preexisting sheath from cardiac intervention. All catheters were exchanged through this sheath. FINDINGS: Abdominal aortography was performed. The catheter was pulled down for aortofemoral runoff. Abdominal aortography reveals no significant abdominal aortic disease. No dissection or aneurysm formation. RIGHT LEG: A. Iliac: The common internal and external iliacs have mild plaquing, none greater than 20% to 30%. No flow-limiting stenosis. B. Femoral system: The common superficial and deep femoral have no significant angiographic disease. C. Popliteal and infrapopliteal vessels are widely patent with good 3-vessel runoff to the foot. LEFT LEG: A. Iliac: The common internal and external iliacs have mild plaquing, none greater than 20% to 30%. No flow-limiting stenosis. B. Femoral system: The common superficial and deep femoral have no significant angiographic disease. C. Popliteal and infrapopliteal vessels are widely patent with good 3-vessel runoff to the foot. FOUR-VESSEL CAROTID AND VERTEBRAL ANGIOGRAPHY: There was subselection of each subclavian as well as the left carotid. FINDINGS: RIGHT SIDE: 1. The subclavian is tortuous with superficial calcium, but there is no subclavian stenosis. 2. The common internal and external carotids have mild plaquing, but no flow-limiting stenosis. 3. The vertebral artery has no significant stenosis. LEFT SYSTEM: 1. The common internal and external carotids have mild plaquing, none greater than 20%. No flow-limiting stenosis. 2. The vertebral artery is small with no significant disease. 3. The subclavian on the left has no significant stenosis. OPERATIVE REPORT [id number] SILVA SEPULVEDA OVERALL IMPRESSION: Minimal peripheral vascular disease is present. No subclavian stenosis is present. Only tortuosity and superficial calcium of the subclavian. TRANSINT:[id number] Voice Confirmation ID: [id number] DOCUMENT ID: [id number] KIMBERLEY CARPIO MD at 1704 CC: [id number] DICTATION DATE: 02/12/18 1253 COTTON BAG SEWER: 02/12/18 1429 ADM IN [facility] [address] [place] [address]
[~2018-02-09 19:57] MED LIST changes: -LANTUS SOL100 UNIT/1 SC; +LANTUS SOLOSTAR PE SQ
[2018-02-09 21:23] LABS: BASOPHILS 0.5 % (0-2); EOSINOPHILS 2.7 % (0-7); HEMATOCRIT 41.1 % (42.0-54.0); HEMOGLOBIN 14.1 g/dL (13.5-17.5); IMMATURE GRANULOCYTES 0.7 % (0-5); LYMPHOCYTES 34.6 % (15-50); MCH 30.6 pg (26.0-34.0); MCHC 34.3 g/dL (31.0-37.0); MCV 89.2 fL (80.0-100.0); MEAN PLATELET VOLUME 10.9 fL (7.4-10.4); MONOCYTES 10.1 % (2-11); NEUTROPHILS 51.4 % (40-80); PLATELET COUNT 222 10x3/uL (130-400); RBC 4.61 10x6/uL (4.20-6.10); RDW 14.3 % (11.5-14.5); WBC 7.4 10x3/uL (4.8-10.8)
[2018-02-09 21:28] LABS: INR 1.02 (0.85-1.17); PROTIME 12.9 SECONDS (11.6-15.0)
[2018-02-09 22:04] LABS: ALBUMIN 3.5 g/dL (3.4-5.0); ALKALINE PHOSPHATASE 89 U/L (46-116); ALT (SGPT) 25 U/L (10-68); BILIRUBIN - TOTAL 0.16 mg/dL (0.2-1.3); CALC OSMOLALITY 283 mosm/kg (275-300); CALCIUM 9.1 mg/dL (8.5-10.1); CARBON DIOXIDE 31.6 mmol/L (21.0-32.0); CHLORIDE - SERUM 104 mmol/L (98-107); CREATININE - SERUM 0.9 mg/dL (0.6-1.3); GLUCOSE 87 mg/dL (74-106); POTASSIUM - SERUM 4.3 mmol/L (3.5-5.1); PROTEIN - SERUM 6.8 g/dL (6.4-8.2); SODIUM 142 mmol/L (136-145); UREA NITROGEN 17 mg/dL (7-18); eGFR NON AFRICAN AMERICAN 89 mL/min (90-120)
[2018-02-09 22:11] LABS: C-REACTIVE PROTEIN 0.5 mg/dL (0.0-0.9); CKMB 0.9 U/L (0.0-3.6); CREATINE KINASE 82 UL (21-232)
[2018-02-09 22:13] LABS: TROPONIN-I < 0.017 ng/mL (0.000-0.060)
[2018-02-09 22:30] VITALS: BP 148/88
[2018-02-10 00:13] VITALS: BP 135/70
[2018-02-10 03:35] VITALS: BP 119/62; BMI 29.8
[2018-02-10 05:58] VITALS: BP 119/62
[2018-02-10 11:28] VITALS: BP 142/65
[2018-02-10 14:20] VITALS: Ht 160 cm; Wt 77.1 kg
[2018-02-10 17:23] VITALS: BP 130/88
[2018-02-10 22:09] VITALS: BP 136/87
[2018-02-11 01:51] VITALS: BP 134/79
[2018-02-11 05:13] LABS: BASOPHILS 0.4 % (0-2); EOSINOPHILS 2.2 % (0-7); HEMATOCRIT 40.9 % (42.0-54.0); HEMOGLOBIN 13.7 g/dL (13.5-17.5); IMMATURE GRANULOCYTES 0.4 % (0-5); LYMPHOCYTES 34.7 % (15-50); MCH 30.1 pg (26.0-34.0); MCHC 33.5 g/dL (31.0-37.0); MCV 89.9 fL (80.0-100.0); MEAN PLATELET VOLUME 10.6 fL (7.4-10.4); MONOCYTES 8.2 % (2-11); NEUTROPHILS 54.1 % (40-80); PLATELET COUNT 198 10x3/uL (130-400); RBC 4.55 10x6/uL (4.20-6.10); RDW 14.3 % (11.5-14.5); WBC 6.7 10x3/uL (4.8-10.8)
[2018-02-11 05:21] LABS: CALC OSMOLALITY 283 mosm/kg (275-300); CALCIUM 8.5 mg/dL (8.5-10.1); CARBON DIOXIDE 29.5 mmol/L (21.0-32.0); CHLORIDE - SERUM 104 mmol/L (98-107); GLUCOSE 106 mg/dL (74-106); SODIUM 141 mmol/L (136-145); UREA NITROGEN 21 mg/dL (7-18); eGFR NON AFRICAN AMERICAN 79 mL/min (90-120)
[2018-02-11 05:24] LABS: POTASSIUM - SERUM 3.6 mmol/L (3.5-5.1)
[2018-02-11 05:31] VITALS: BP 135/81
[2018-02-11 08:14] VITALS: BP 125/76
[2018-02-11 19:00] VITALS: BP 111/66
[2018-02-12 00:45] VITALS: BP 118/60
[2018-02-12 04:39] LABS: BASOPHILS 0.3 % (0-2); EOSINOPHILS 0.9 % (0-7); HEMATOCRIT 41.4 % (42.0-54.0); HEMOGLOBIN 14.1 g/dL (13.5-17.5); IMMATURE GRANULOCYTES 0.6 % (0-5); MCH 30.5 pg (26.0-34.0); MCHC 34.1 g/dL (31.0-37.0); MCV 89.4 fL (80.0-100.0); MEAN PLATELET VOLUME 10.6 fL (7.4-10.4); MONOCYTES 3.1 % (2-11); NEUTROPHILS 80.1 % (40-80); PLATELET COUNT 178 10x3/uL (130-400); RBC 4.63 10x6/uL (4.20-6.10); RDW 14.1 % (11.5-14.5); WBC 6.8 10x3/uL (4.8-10.8)
[2018-02-12 04:48] LABS: APTT 47.7 SECONDS (22.8-39.4); INR 1.07 (0.85-1.17); PROTIME 13.4 SECONDS (11.6-15.0)
[2018-02-12 04:57] VITALS: BP 113/70
[2018-02-12 05:06] LABS: CALC OSMOLALITY 280 mosm/kg (275-300); CALCIUM 8.5 mg/dL (8.5-10.1); CARBON DIOXIDE 30.1 mmol/L (21.0-32.0); CHLORIDE - SERUM 102 mmol/L (98-107); GLUCOSE 137 mg/dL (74-106); POTASSIUM - SERUM 4.1 mmol/L (3.5-5.1); SODIUM 137 mmol/L (136-145); eGFR NON AFRICAN AMERICAN 79 mL/min (90-120)
[2018-02-12 05:21] LABS: UREA NITROGEN 27 mg/dL (7-18)
[2018-02-12 08:11] VITALS: BP 127/75
[2018-02-12 11:08] VITALS: BP 184/94
[2018-02-12 16:40] VITALS: BP 74/50
[2018-02-12 20:48] VITALS: BP 130/70
[2018-02-13 01:06] VITALS: BP 114/60
[2018-02-13 05:11] VITALS: BP 148/72
[2018-02-13 07:57] VITALS: BP 162/69
[2018-02-13 10:46] LABS: BASOPHILS 0.5 % (0-2); EOSINOPHILS 1.1 % (0-7); HEMATOCRIT 39.5 % (42.0-54.0); HEMOGLOBIN 13.3 g/dL (13.5-17.5); IMMATURE GRANULOCYTES 0.5 % (0-5); LYMPHOCYTES 28.3 % (15-50); MCH 30.4 pg (26.0-34.0); MCHC 33.7 g/dL (31.0-37.0); MCV 90.2 fL (80.0-100.0); MEAN PLATELET VOLUME 10.6 fL (7.4-10.4); MONOCYTES 6.6 % (2-11); PLATELET COUNT 171 10x3/uL (130-400); RBC 4.38 10x6/uL (4.20-6.10); RDW 14.6 % (11.5-14.5); WBC 6.5 10x3/uL (4.8-10.8)
[2018-02-13 10:55] LABS: CALC OSMOLALITY 290 mosm/kg (275-300); CALCIUM 8.2 mg/dL (8.5-10.1); CHLORIDE - SERUM 106 mmol/L (98-107); GLUCOSE 162 mg/dL (74-106); POTASSIUM - SERUM 3.8 mmol/L (3.5-5.1); SODIUM 143 mmol/L (136-145); eGFR NON AFRICAN AMERICAN 79 mL/min (90-120)
[2018-02-13 10:56] LABS: UREA NITROGEN 18 mg/dL (7-18)
[2018-02-13 11:30] VITALS: BP 145/64
[2018-02-13 18:08] VITALS: BP 141/66
[2018-02-13 20:43] VITALS: BP 122/70
[2018-02-14] VITALS: BP 94/62
[2018-02-14 04:00] VITALS: BP 142/80
[2018-02-14 06:00] LABS: BASOPHILS 0 % (0-2); EOSINOPHILS 0.2 % (0-7); HEMOGLOBIN 13.3 g/dL (13.5-17.5); IMMATURE GRANULOCYTES 0.5 % (0-5); LYMPHOCYTES 14.4 % (15-50); MCH 30.3 pg (26.0-34.0); MCHC 34.1 g/dL (31.0-37.0); MCV 88.8 fL (80.0-100.0); MEAN PLATELET VOLUME 10.7 fL (7.4-10.4); MONOCYTES 1.4 % (2-11); NEUTROPHILS 83.5 % (40-80); PLATELET COUNT 202 10x3/uL (130-400); RBC 4.39 10x6/uL (4.20-6.10); RDW 14.5 % (11.5-14.5)
[2018-02-14 06:13] LABS: WBC 4.4 10x3/uL (4.8-10.8)
[2018-02-14 06:15] LABS: CALC OSMOLALITY 288 mosm/kg (275-300); CALCIUM 8.3 mg/dL (8.5-10.1); CARBON DIOXIDE 27.6 mmol/L (21.0-32.0); CHLORIDE - SERUM 107 mmol/L (98-107); GLUCOSE 151 mg/dL (74-106); POTASSIUM - SERUM 4.1 mmol/L (3.5-5.1); SODIUM 142 mmol/L (136-145); UREA NITROGEN 21 mg/dL (7-18); eGFR NON AFRICAN AMERICAN 79 mL/min (90-120)
[2018-02-14 08:02] VITALS: BP 179/86
[2018-02-14 11:45] VITALS: BP 148/73
[2018-02-14 16:28] VITALS: BP 153/69
== END 2018-02-14 20:17 | disposition home or self-care (01) | DRG 249 ==
LOC: D.ER 19:57 → D.MS 02-10 01:40 → D.M2 02-10 01:40
PROVIDERS: Family Medicine; General Practice
PROC: 02703DZ Dilation of Coronary Artery, One Artery with Intraluminal Device, Percutaneous Approach (ICD-10-PCS; principal; 2018-02-12)
PROC: 4A023N7 Measurement of Cardiac Sampling and Pressure, Left Heart, Percutaneous Approach (ICD-10-PCS; 2018-02-12)
PROC: B2111ZZ Fluoroscopy of Multiple Coronary Arteries using Low Osmolar Contrast (ICD-10-PCS; 2018-02-12)
PROC: B2151ZZ Fluoroscopy of Left Heart using Low Osmolar Contrast (ICD-10-PCS; 2018-02-12)
PROC: B240ZZ3 Ultrasonography of Single Coronary Artery, Intravascular (ICD-10-PCS; 2018-02-12)
PROC: B31C1ZZ Fluoroscopy of Bilateral External Carotid Arteries using Low Osmolar Contrast (ICD-10-PCS; 2018-02-12)
PROC: B3121ZZ Fluoroscopy of Left Subclavian Artery using Low Osmolar Contrast (ICD-10-PCS; 2018-02-12)
PROC: B3181ZZ Fluoroscopy of Bilateral Internal Carotid Arteries using Low Osmolar Contrast (ICD-10-PCS; 2018-02-12)
PROC: B41J1ZZ Fluoroscopy of Other Lower Arteries using Low Osmolar Contrast (ICD-10-PCS; 2018-02-12)
DX: I25.119 Atherosclerotic heart disease of native coronary artery with unspecified angina pectoris (principal); G45.9 Transient cerebral ischemic attack, unspecified; E11.51 Type 2 diabetes mellitus with diabetic peripheral angiopathy without gangrene; I70.208 Unspecified atherosclerosis of native arteries of extremities, other extremity; I11.0 Hypertensive heart disease with heart failure; I50.9 Heart failure, unspecified; J44.9 Chronic obstructive pulmonary disease, unspecified; M19.90 Unspecified osteoarthritis, unspecified site; G14 Postpolio syndrome; E78.5 Hyperlipidemia, unspecified; K64.9 Unspecified hemorrhoids; M48.02 Spinal stenosis, cervical region; M54.12 Radiculopathy, cervical region; Z86.73 Personal history of transient ischemic attack (TIA), and cerebral infarction without residual deficits; Z87.891 Personal history of nicotine dependence

== ENCOUNTER 2018-02-18 14:16 | Emergency (ER) | payer MEDICARE, OTHER ==
[~2018-02-18] VITALS: Ht 160 cm; Wt 75.9 kg
--- NOTE | ~2018-02-18 | CN ---
PATIENT NAME:SILVA SEPULVEDA MEDICAL RECORD: [id number] : 52 LOCATION:D.ER ADMIT DATE: ACCOUNT: [id number] CONSULTING PHYSICIAN: KIMBERLEY CARPIO MD REFERRING PHYSICIAN: MIGDALIA PALENCIA MD DATE OF CONSULTATION: 02/18/2018 ADMITTING DIAGNOSES: 1. Chest pain. 2. Coronary artery disease. 3. Recent percutaneous transluminal coronary angioplasty stent left anterior descending. 4. Hyperlipidemia. 5. Hypertension. HISTORY OF PRESENT ILLNESS: This is a gentleman who was in last week underwent PTCA stent of the LAD, has no other concomitant disease in the coronaries. His carotids have no significant disease and his legs have no significant disease. He presented with some recurrent chest discomfort that he has been having since the procedure. He has been taking his Plavix. REVIEW OF SYSTEMS: The patient reports easy bruising but reports no swollen glands. The patient reports no fever, no night sweats, no significant weight gain, no significant weight loss. No significant exercise tolerance. The patient reports no dry eyes, no irritation, no vision change. Patient reports no difficulty hearing and no ear pain. Patient reports no frequent nose bleeds or nose and sinus problems. Patient reports on arm pain on exertion. No shortness of breath while lying down. No history of heart murmur. Patient reports no cough, no wheezing or coughing up blood. Patient reports no abdominal pain, no vomiting. Normal appetite. No diarrhea and not vomiting blood. No nausea and no constipation. Patient reports no incontinence. No difficulty urinating. No hematuria. No increased frequency. Patient reports no muscle aches. No weakness, no arthralgias, no back pain. No swelling of the extremities. Patient reports no abnormal mole, no jaundice, no rashes. Reports no loss of consciousness. No weakness and no numbness. No seizures, dizziness, or headaches. The patient reports no depression, no sleep disturbance, feeling safe in a relationship and no alcohol abuse. Patient reports on fatigue. Reports no runny nose or sinus pressure. No itching, no hives, and no frequent sneezing. PHYSICAL EXAMINATION: GENERAL APPEARANCE: Well-nourished, well-developed, appears stated age. Level of distress, comfortable. PSYCHIATRIC: Mental status, alert, normal affect. Orientation, oriented to time, place and person. EYES: Lids and conjunctiva, noninjected. No discharge, no pallor. ENT: Lips, teeth, gums, normal dentition. Oropharynx, no cyanosis, no pallor. NECK: Carotid arteries, bilateral normal upstroke, no bruits, no thrills. JUGULAR VEINS: No jugular venous pressure or distention. CERVICAL LYMPH NODES: Nontender, nonenlarged. THYROID: Not enlarged. Nontender. No nodules. LUNGS: Respiratory effort, unlabored. CHEST: Normal curvature. No thoracic deformity. No chest wall tenderness. Percussion, resonant. Auscultation, clear. No wheezes, no rales, no rhonchi. CARDIOVASCULAR: Precordial exam, nondisplaced. No heaves or pericardial CONSULT REPORT [id number] COCOSILVA L thrills. Rate and rhythm, regular. Heart sounds, normal S1, normal S2. No S3, no gallop, no rub. Systolic murmur, not heard. Diastolic murmur, not heard. EXTREMITIES: No cyanosis, no edema. Peripheral pulses, full and equal in all extremities, except as noted. No bruits appreciated. ABDOMEN: Soft, nondistended. Normal aorta. No bruit. Nontender. No masses. Liver, nontender, no hepatomegaly. Spleen, nontender, no splenomegaly. MUSCULOSKELETAL: No joint tenderness. No joint swelling. No erythema. NEUROLOGICAL: Normal gait, normal strength, normal tone. SKIN: Warm and dry. OVERALL IMPRESSION: Chest pain. At this time, whatever residual pain he has is noncardiac. His EKG is normal. No other cardiac workup or treatment is necessary at this time. TRANSINT:[id number] Voice Confirmation ID: [id number] DOCUMENT ID: [id number] KIMBERLEY CARPIO MD at 1025 CC: [id number] DICTATION DATE: 02/18/18 1533 MAKE READY WORKER: 02/19/18 0027 DEP ER 02/18/18 [id number] [place] [address]
[2018-02-18 14:27] VITALS: Ht 160 cm; Wt 75.9 kg
[2018-02-18 15:17] LABS: BASOPHILS 0.6 % (0-2); EOSINOPHILS 1.9 % (0-7); HEMATOCRIT 41.8 % (42.0-54.0); HEMOGLOBIN 14.5 g/dL (13.5-17.5); IMMATURE GRANULOCYTES 0.7 % (0-5); LYMPHOCYTES 25.1 % (15-50); MCH 30.9 pg (26.0-34.0); MCHC 34.7 g/dL (31.0-37.0); MCV 89.1 fL (80.0-100.0); MEAN PLATELET VOLUME 10.8 fL (7.4-10.4); MONOCYTES 7.5 % (2-11); NEUTROPHILS 64.2 % (40-80); PLATELET COUNT 232 10x3/uL (130-400); RBC 4.69 10x6/uL (4.20-6.10); RDW 14.4 % (11.5-14.5); WBC 7.2 10x3/uL (4.8-10.8)
[2018-02-18 15:21] LABS: APTT 43.2 SECONDS (22.8-39.4); INR 1.05 (0.85-1.17); PROTIME 13.2 SECONDS (11.6-15.0)
[2018-02-18 15:28] LABS: ALBUMIN 3.4 g/dL (3.4-5.0); ALKALINE PHOSPHATASE 72 U/L (46-116); ALT (SGPT) 44 U/L (10-68); CALC OSMOLALITY 282 mosm/kg (275-300); CALCIUM 8.3 mg/dL (8.5-10.1); CARBON DIOXIDE 31.5 mmol/L (21.0-32.0); CHLORIDE - SERUM 101 mmol/L (98-107); CREATININE - SERUM 1.2 mg/dL (0.6-1.3); GLUCOSE 130 mg/dL (74-106); POTASSIUM - SERUM 3.8 mmol/L (3.5-5.1); PROTEIN - SERUM 6.8 g/dL (6.4-8.2); SODIUM 139 mmol/L (136-145); UREA NITROGEN 21 mg/dL (7-18); eGFR NON AFRICAN AMERICAN 64 mL/min (90-120)
[2018-02-18 15:42] LABS: CKMB 0.4 U/L (0.0-3.6); CREATINE KINASE 55 UL (21-232); MAGNESIUM - SERUM 1.9 mg/dL (1.8-2.4)
[2018-02-18 15:46] LABS: TROPONIN-I 0.087 ng/mL (0.000-0.060)
[2018-02-18 18:22] LABS: CKMB 0.7 U/L (0.0-3.6); CREATINE KINASE 53 UL (21-232)
[2018-02-18 19:00] VITALS: BP 151/95
== END 2018-02-18 19:00 | disposition home or self-care (01) ==
LOC: D.ER 14:16
PROVIDERS: Family Medicine
DX: R07.9 Chest pain, unspecified (principal); I25.10 Atherosclerotic heart disease of native coronary artery without angina pectoris; R06.02 Shortness of breath

== ENCOUNTER 2018-03-07 05:55 | Outpatient (CLI) | payer MEDICARE, OTHER ==
[~2018-03-07] VITALS: Ht 160 cm; Wt 74.5 kg
--- NOTE | ~2018-03-07 | HEMODYNAMI ---
PATIENT:SILVA SEPULVEDA MEDICAL RECORD: [id number] : 52 LOCATION:[facility] ADMISSION DATE: 03/07/18 Generatedon:03/07/201810:13 Patient name: SILVA SEPULVEDA Patient #: [id number] SSN: D OB: 1950 Date of study: 03/07/2018 Page: Of Hemodynamic Procedure Report Patient Data Patient Demographics Procedure consent was obtained First Name: SILVA Gender: Male Last Name: COCO : 1950 Middle Initial: L Age: 68 year(s) Patient #: [id number] Race: Additional ID: [id number] Contact details Address: [address] [place] [address] State: [place] City: [place] Zip code: [address] Past Medical History Allergies Allergen Reaction Date Comments Reported Other allergy 03/07/2018 shellfish and tomatoes Admission Admission Data Admission Date: 03/07/2018 Admission Time: 5:55 Procedure Procedure Types Cath Procedure Peripheral Cath Diagnostic Procedure Miscellaneous Procedure Description Procedure Date Procedure Date: 03/07/2018 Procedure Start Time: 8:55 Procedure Staff Name Function Geraldo Chamberlain MD Performing Physician Neftali Stratton RT Monitor Symone Newell RN Nurse Aimee Marie Scrub Procedure Data Cath Procedure Fluoroscopy Diagnostic fluoroscopy Total fluoroscopy Time: time: 12.2 min 12.2 min Diagnostic fluoroscopy Total fluoroscopy dose: 346 dose: 346 mGy mGy Contrast Material Contrast Material Type Amount (ml) Isovue 300 100 Entry Location Entry Primary Successful Side Size Upsize Upsize Entry Closure Succes sful Closure Location (Fr) 1 (Fr) 2 (Fr) Remarks Device Remarks Femoral Right 5 Fr 6 Fr Exoseal artery Long Diagnostic catheters Device Type Used For End Catheter Placement Merit ULTRA BOLUS FLUSH 5Fr 90CM catheter ([id number]) Procedure Medications Medication Administration Route Dosage Heparin Flush Bag added to field 3 bags (1000units/500ml NS) Lidocaine 1% added to field 20 Fentanyl I.V. 50 mcg Versed I.V. 1 mg Versed I.V. 1 mg Fentanyl I.V. 50 mcg Heparin Bolus I.V. 5000 units Hemodynamics Rest Heart Rate: 75 (bpm) Snapshots Pre Cath Intra NCS Post Cath Vital Signs Time Heart Resp SPO2 etCO2 NIBP (mmHg) Rhythm Pain Sedation Rate (ipm) (%) (mmHg) Status Level (bpm) 8:02:52 77 24 97 0 176/90(141) NSR 0 (11) 10(A) , No pain 8:07:24 73 13 100 37.9 171/89(134) NSR 0 (11) 10(A) , No pain 8:11:52 74 11 100 29.7 177/98(130) NSR 0 (11) 10(A) , No pain 8:16:23 73 12 100 38.7 177/94(140) NSR 0 (11) 10(A) , No pain 8:20:55 75 13 99 38.6 180/94(143) NSR 0 (11) 10(A) , No pain 8:25:30 69 12 100 37.9 165/85(142) NSR 0 (11) 10(A) , No pain 8:30:00 70 11 100 40.1 176/86(130) NSR 0 (11) 10(A) , No pain 8:34:24 73 14 100 33.4 168/90(133) NSR 0 (11) 10(A) , No pain 8:38:57 74 12 100 36.4 172/86(130) NSR 0 (11) 10(A) , No pain 8:43:29 69 9 100 40.9 184/93(144) NSR 0 (11) 10(A) , No pain 8:48:10 76 21 100 34.9 170/82(146) NSR 0 (11) 10(A) , No pain 8:52:36 77 13 99 40.1 177/99(142) NSR 0 (11) 10(A) , No pain 8:57:10 70 11 99 36.4 175/92(138) NSR 0 (11) 10(A) , No pain 9:01:33 74 10 98 35.6 162/101(138) NSR 0 (11) 8(A) , No pain 9:06:32 74 8 96 41.6 Measuring NSR 0 (11) 8(A) , No pain 9:06:58 74 11 98 40.9 171/99(157) NSR 0 (11) 8(A) , No pain 9:11:29 82 8 98 47.6 177/101(137) NSR 0 (11) 8(A) , No pain 9:16:28 75 11 99 42.4 Measuring NSR 0 (11) 8(A) , No pain 9:17:05 76 10 99 43.9 184/95(133) NSR 0 (11) 8(A) , No pain 9:21:43 73 15 99 43.9 184/94(152) NSR 0 (11) 8(A) , No pain 9:26:20 71 15 99 45.4 192/97(150) NSR 0 (11) 8(A) , No pain 9:30:48 75 10 98 40.9 176/94(144) NSR 0 (11) 9(A) , No pain 9:35:22 74 12 100 40.2 188/101(143) NSR 0 (11) 9(A) , No pain 9:40:03 76 13 99 40.2 186/91(166) NSR 0 (11) 9(A) , No pain 9:44:31 73 19 100 38.7 173/90(134) NSR 0 (11) 9(A) , No pain 9:48:56 72 13 100 37.9 172/97(142) NSR 0 (11) 9(A) , No pain 9:53:28 67 23 100 37.2 175/82(138) NSR 0 (11) 9(A) , No pain 9:57:48 73 10 100 40.2 149/82(119) NSR 0 (11) 9(A) , No pain 10:02:47 71 14 100 34.9 Measuring NSR 0 (11) 9(A) , No pain 10:03:08 72 12 100 36.4 176/97(138) NSR 0 (11) 9(A) , No pain 10:07:42 68 13 100 28.2 173/91(128) NSR 0 (11) 9(A) , No pain 10:12:41 64 13 100 36.5 Measuring NSR 0 (11) 9(A) , No pain 10:13:14 65 12 100 39.4 173/93(132) NSR 0 (11) 9(A) , No pain Medications Time Medication Route Dose Verified Delivered Reason Notes Effect iveness by by 8:34:54 Heparin Flush added 3 Geraldo Geraldo used for Bag to bags Cintia Chamberlain MD procedure (1000units/500ml field GRANGER NS) 8:35:08 Lidocaine 1% added 20ml Geraldo Chow used for to vial Cintia Chamberlain MD procedure field GRANGER 8:57:52 Fentanyl I.V. 50 Geraldo Symone for mcg Reece Chamberlain RN sedation 8:58:02 Versed I.V. 1 mg Geraldo Symone for Reece Chamberlain RN sedation 9:00:39 Versed I.V. 1 mg Geraldo Symone for Reece Chamberlain RN sedation 9:00:45 Fentanyl I.V. 50 Geraldo Acostaody for mcg Reece Chamberlain RN sedation 9:26:38 Heparin Bolus I.V. 5000 Geraldo Symone units Reece Chamberlain RN, MD Procedure Log Time Note 7:45:53 Neftali Stratton RT (R) (CV) sent for patient. Start room use. 7:46:00 Time tracking: Regular hours (M-F 7:00 - 5:00) 7:46:06 Plan of Care:Hemodynamics will remain stable., Cardiac rhythm will remain stable., Comfort level will be maintained., Respiratory function will remain adequate., Patient/ family verbilizes understanding of procedure., Procedure tolerated without complication., Recovers from procedure without complications.. 7:46:11 Patient received from Outpatients to IR Alert and oriented. Tansferred to table in Supine position. 7:46:12 Correct patient and procedure confirmed by team. 7:46:15 Signed procedure consent form obtained from patient. 7:46:16 ECG and BP/O2 sat monitors applied to patient. 7:46:17 Full Disclosure recording started 7:46:18 - 7:46:22 H&P Date Dictated: 03/07/2018 Within 30 days and on chart.. 7:46:27 H&P Date Dictated: 03/07/2018 H&P Addendum completed by physician on da y of procedure. (MUST COMPLETE FOR ALL OUTPATIENTS). 7:46:28 Pre-procedure instructions explained to patient. 7:46:28 Pre-op teaching completed and patient verbalized understanding. 7:46:30 Family in waiting room. 7:46:31 Patient NPO since Midnight. 7:47:23 Patient allergic to Other allergyshellfish and tomatoes 7:47:35 Is the patient allergic to Iodine/contrast media? Yes. 7:47:39 Was the patient premedicated? Yes 7:47:41 Is patient on blood thinner?Yes 7:47:45 ACC The patient was administered the following blood thiners within the last 24 hours: ACCAspirin, ACCPlavix 7:47:47 Patient diabetic? Yes. 7:47:49 If diabetic: On Metformin? No 7:47:51 - 7:47:52 ----Pre-sedation anethsthesia assessment.---- 7:47:55 Previous problem with sedation/anesthesia? No ? 7:47:57 Snore? Yes 7:47:58 Sleep apnea? Yes 7:47:59 Deviated septum? No 7:48:01 Opens mouth fully? Yes 7:48:03 Sticks out tongue? Yes 7:48:12 Airway obstruction? Yes copd 7:48:16 Dentures? Yes out 7:48:20 - 7:48:23 Use device set IR Diagnostic 7:48:24 ACIST Syringe (13227) opened to sterile field. 7:48:24 ACIST Hand Control (44425) opened to sterile field. 7:48:25 ACIST Manifold (78669) opened to sterile field. 7:48:25 Bag Decanter (2001S) opened to sterile field. 7:48:25 Sterile Angiographic Pack opened to sterile field. 7:48:26 Tegaderm 4 x 4 (1626W) opened to sterile field. 8:01:33 Baseline sample Acquired. 8:01:33 Vital chart was started 8:01:41 Pre procedure: right dorsailis pedis pulse Doppler 8:01:45 Pre procedure: left dorsailis pedis pulse Doppler 8:01:48 Pre procedure: right posterior tibial pulse Doppler 8:01:51 Pre procedure: left posterior tibial pulse Doppler 8:01:56 Patient pain scale 0/10 no pain. 8:02:02 IV patent on arrival in right forearm with 0.9% NaCl at O. 8:02:03 Sharps counted by scrub and verified by R.N. 8:02:04 Alarms reviewed by R. N. 8:34:54 Heparin Flush Bag (1000units/500ml NS) 3 bags added to field was administered by Geraldo Chamberlain MD; used for procedure; 8:35:08 Lidocaine 1% 20ml vial added to field was administered by Geraldo Chamberlain MD; used for procedure; 8:37:15 Right groin area was prepped with chlora-prep and draped in sterile fashion 8:53:15 Physician arrived 8:53:15 --------ALL STOP TIME OUT------ 8:53:16 Final Timeout: patient, procedure, and site verified with staff and physician. All members of the team are in agreement. 8:53:18 Right groin site verified by team. 8:53:22 Sedation plan: IV Moderate Sedation Medication:Versed, Fentanyl 8:55:07 Procedure started. 8:55:11 Local anesthetic to right femoral artery with Lidocaine 1% by Geraldo Chamberlain MD.INITIAL ACCESS ONLY 8:55:20 Access obtained with 4Fr micropunture. 8:55:57 A 5 Fr sheath was inserted into the Right Femoral artery 8:56:05 A Merit ULTRA BOLUS FLUSH 5Fr 90CM catheter ([id number]) was advanced over the wire and used for . 8:56:06 DOC .035 wire (G58043) opened to sterile field. 8:56:07 SHEATH 5FR Conway (URQ086) opened to sterile field. 8:56:07 Micropuncture VSI 4FR kit opened to sterile field. 8:57:52 Fentanyl 50 mcg I.V. was administered by Symone Newell RN; for sedation ; 8:58:02 Versed 1 mg I.V. was administered by Symone Newell RN; for sedation; 9:00:39 Versed 1 mg I.V. was administered by Symone Newell RN; for sedation; 9:00:45 Fentanyl 50 mcg I.V. was administered by Symone Newell RN; for sedation ; 9:01:31 AMPLATZ Super Stiff 75cm wire ([id number]) opened to sterile field. 9:07:23 TORQUE DEVICE PLASTIC .038 ( TD01) opened to sterile field. 9:07:23 GLIDE CATHETER 5FR ANGLED 100cm (CG508) opened to sterile field. 9:07:24 GLIDE WIRE MERIT Angled 260cm ([id number]) opened to sterile field. 9:07:56 INFLATOR BasixTOUCH (HF2131) opened to sterile field. 9:10:09 PATEL 260 wire (U40287) opened to sterile field. 9:11:16 Cook RAABE 6FR. 90cm guide sheath opened to sterile field. 9:13:20 Sheath upsized to a 6 Fr Long. 9:26:38 Heparin Bolus 5000 units I.V. was administered by Symone Newell RN; ; 9:31:27 Inflate balloon Inflation number: 1 A Evercross 3 x 4 x 135 Balloon ([id number]) was prepped and advanced across the Proximal Subclavian, Left, then inflated to 14 CELESTINA for 0:08 (min:sec). 9:32:13 SHEATH 6FR Conway (FWB588) opened to sterile field. 9:36:38 Protege GPS 10x 40 X 120 Stent ([id number]) was deployed across Proximal Subclavian, Left . 9:59:47 EXOSEAL 6Fr (EX600) opened to sterile field. 10:00:01 Sheath removed intact; hemostasis achieved with Exoseal to the Right Femoral artery. 10:00:06 Procedure ended.(Physican Out) 10:00:43 Fluoroscopy time 12.20 minutes. 10:00:47 Fluoroscopy dose: 346 mGy 10:00:47 Flurop Dose total: 346 10:02:29 Sharps counted by scrub and verified by R.N. 10:02:30 Insertion/operative site no bleeding no hematoma. 10:02:34 Post-op/insertion site Right Femoral artery dressed using a 4 x 4 and Tegaderm. 10:02:38 Post right femoral artery:stable 10:02:39 Post Procedure Pulses reassessed and unchanged 10:02:41 Post procedure instruction explained to patient.Patient verbalizes understanding. 10:02:42 Procedure and supply charges have been captured, reviewed, submitted an d are correct. 10:06:18 Contrast amount:Isovue 300 100ml. 10:13:22 Report given to Outpatients. 10:13:26 Patient transfered to Outpatients with Stretcher. 10:13:47 Vital chart was stopped Intervention Summary Intervention Notes Time ActionType Lesion and Equipment Used Action# Pressure Duration Attributes 9:31:27 Inflate Proximal Evercross 3 x 4 x 1 14 00:08 balloon Subclavian, 135 Balloon Left ([id number]) 9:36:38 Deploy self Proximal Protege GPS 10x 40 1 expanding Subclavian, X 120 Stent stent Left ([id number]) Device Usage Item Name Manufacture Quantity Catalog Number [facility] Part [facility] Minimal Lot# / Charge Number Stock Stock Serial# Code ACIST Syringe Acist 1 84027 004449 184519 989 647 20 (35924) [employer] Inc ACIST Hand Control Acist 1 61433 321151 960565 990 072 5 (96002) [employer] Inc ACIST Manifold Acist 1 07937 894868 807559 990 089 5 (55141) Medical Systems Inc Bag Decanter Microtek 1 2001S 079579 10232 988 359 5 (2001S) Medical Inc. Sterile Cardinal 1 [id number] 313860 998 432 5 Angiographic Pack Health Tegaderm 4 x 4 3M 1 1626W 719107 168266 993 546 5 (1626W) Merit ULTRA BOLUS Merit 1 [id number] 652906 999 937 5 FLUSH 5Fr 90CM Medical catheter ([id number]) DOC .035 wire Cook Medical 1 A59694 089185 999 560 5 (V60856) SHEATH 5FR Terumo 1 YWN055 212371 587681 996 039 5 Conway (VLJ649) Micropuncture VSI VSI VASCULAR 1 7266V 155330 999 410 5 4FR kit SOLUTIONS AMPLATZ Super Otisco 1 [id number] 845560 768377 999 903 5 [id number] Stiff 75cm wire Scientific ([id number]) TORQUE DEVICE Otisco 1 TD01 966233 226055 999 407 5 PLASTIC .038 ( Scientific TD01) GLIDE CATHETER 5FR Terumo 1 CG508 810150 34833 999 890 4 ANGLED 100cm (CG508) GLIDE WIRE MERIT Merit 1 [id number] 755786 707681 999 980 5 [id number] Angled 260cm Medical ([id number]) INFLATOR Merit 1 BZ8207 141959 987571 999 830 5 [facility] Medical (SM9041) PATEL 260 wire Cook Medical 1 Z27799 021932 15584 999 644 5 (P14567) Cook RAABE 6FR. Cook Medical 1 J00585 370852 999 946 5 90cm guide sheath Evercross 3 x 4 x Medtronic 1 [id number] 876998 792850 999 995 5 [id number] 135 Balloon ([id number]) SHEATH 6FR Terumo 1 XVL912 870215 958581 996 355 40 Conway (WAL503) Protege GPS 10x 40 Medtronic 1 [id number] 436334 230390 999 995 5 [id number] X 120 Stent [id number] ([id number]) EXOSEAL 6Fr Cardinal 1 EX600 647493 272225 997 246 10 [id number] (EX600) Health Signature Audit [place] Stage Time Signature Unsigned Intra-Procedure 03/07/2018 Neftali 10:13:44 AM Shuffield RT (R) (CV) Signatures Monitor : Neftali Signature : Shuffield RT Date : Time : [address] [place] [address]
[2018-03-07 06:17] LABS: BASOPHILS 0 % (0-2); EOSINOPHILS 0 % (0-7); LYMPHOCYTES 15.9 % (15-50); MCH 30.7 pg (26.0-34.0); MCHC 34.1 g/dL (31.0-37.0); MCV 89.9 fL (80.0-100.0); MEAN PLATELET VOLUME 10.5 fL (7.4-10.4); NEUTROPHILS 82.1 % (40-80); PLATELET COUNT 216 10x3/uL (130-400); RBC 4.56 10x6/uL (4.20-6.10); RDW 13.7 % (11.5-14.5)
[2018-03-07 06:32] LABS: CALC OSMOLALITY 286 mosm/kg (275-300); CALCIUM 8.9 mg/dL (8.5-10.1); CARBON DIOXIDE 28.5 mmol/L (21.0-32.0); CHLORIDE - SERUM 104 mmol/L (98-107); CREATININE - SERUM 0.9 mg/dL (0.6-1.3); POTASSIUM - SERUM 4.4 mmol/L (3.5-5.1); SODIUM 142 mmol/L (136-145); UREA NITROGEN 11 mg/dL (7-18); eGFR NON AFRICAN AMERICAN 89 mL/min (90-120)
[2018-03-07 06:33] LABS: GLUCOSE 192 mg/dL (74-106)
[2018-03-07 06:42] LABS: INR 1.05 (0.85-1.17); PROTIME 13.2 SECONDS (11.6-15.0)
[2018-03-07 06:49] VITALS: Ht 160 cm; Wt 74.5 kg
--- NOTE | 2018-03-07 14:09 | NUR ---
DR. MART SPOKE TO PT REAGRDING PROCEDURE. STATES PT IS READY FOR DC. DC INSTRUCTIONS GIVEN TO PT. STATES UNDERSTANDING. DC'D IV CATH FULLY INTACT.
--- NOTE | 2018-03-07 14:13 | NUR ---
PT LEFT UNIT VIA WC AT 1413
== END 2018-03-07 14:13 | disposition home or self-care (01) ==
LOC: D.SP 05:55 → D.RAD 08:00 → D.SP 08:00
PROVIDERS: General Practice
DX: I70.208 Unspecified atherosclerosis of native arteries of extremities, other extremity (principal); Z01.812 Encounter for preprocedural laboratory examination

== ENCOUNTER 2018-12-26 06:30 | Day surgery (SDC) | payer MEDICARE ==
[2018-12-24 10:04] LABS: HEMATOCRIT 43.6 % (42.0-54.0); HEMOGLOBIN 13.8 g/dL (13.5-17.5); MCH 27.6 pg (26.0-34.0); MCHC 31.7 g/dL (31.0-37.0); MCV 87.2 fL (80.0-100.0); MEAN PLATELET VOLUME 10.7 fL (7.4-10.4); RDW 15.1 % (11.5-14.5); WBC 5.4 10x3/uL (4.8-10.8)
[2018-12-24 10:33] LABS: ANION GAP 12.4 mmol/L (8-16); CALCIUM 8.5 mg/dL (8.5-10.1); CARBON DIOXIDE 30.4 mmol/L (21.0-32.0); CREATININE - SERUM 1.2 mg/dL (0.6-1.3); POTASSIUM - SERUM 4.8 mmol/L (3.5-5.1)
[~2018-12-26] VITALS: Ht 160 cm; Wt 77.4 kg
[2018-12-26] VITALS (11 sets, daily range): BP systolic 122–159; BP diastolic 58–86; BMI 28.7; BMI 29.8
[~2018-12-26 06:30] MED LIST changes: +LANTUS SOL100 UNIT/1 SC; -LANTUS SOLOSTAR PE SQ; +LISINOPRIL20 MG PO
--- NOTE | 2018-12-26 08:09 | NUR ---
MH CONSULT CALLED TO DIRECTOR OF CASEWORK DEPARTMENT. MH HAS COME UP AND DONE EVALUATION. PATIENT CLEARED.
--- NOTE | 2018-12-26 08:18 | NUR ---
DR. CHAVARRIA NOTIFIED AND REVIEWED PT'S BEHAVIOR AND ASSESSMENT RESULTS. PT IS A LOW RISK PER DR. CHAVARRIA. DR. CHAVARRIA STATED TO GIVE RESOURCES TO PT AT TIME OF DISCHARGE. NO FURTHER ORDERS AT THIS TIME. RESOURCES REVIEWED WITH PT AND HE VERBALIZED UNDERSTANDING.
--- NOTE | 2018-12-26 15:40 | NUR ---
ACCEPTED CARE OF THIS PT. PT RESTING IN BED, ALERT AND ANSWERING ALL QUESTIONS. INCISION NOTED TO RIGHT NECK. DRESSING C/D/I. NO SIGNS OF HEMATOMA FORMATION NOTED AT THIS TIME. TONGUE MIDLINE. PT DENIES ANY NUMBNESS TO FINGERS AT THIS TIME. HOB ELEVATED AT 45. DENIES ANY NEEDS AT THIS TIME. WILL CONT TO FOLLOW POC
--- NOTE | 2018-12-26 16:12 | OP ---
PATIENT NAME: SILVA SEPULVEDA MEDICAL RECORD: [id number] :52 LOCATION:[facility] D.2307 ADMISSION DATE: SURGEON: KASHIF STARR MD DATE OF OPERATION: 12/26/2018 PREOPERATIVE DIAGNOSES: Osteophyte formation and disc herniation at C4-C5 and C5-6. POSTOPERATIVE DIAGNOSES: Osteophyte formation and disc herniation at C4-C5 and C5-6. PROCEDURE: Anterior cervical discectomy and fusion at C4-C5 and C5-C6 with PEEK interbody cages, separate anterior cervical plate and screws from [facility]. DESCRIPTION OF TECHNIQUE: After induction of general endotracheal anesthesia, the patient was positioned supine on the operating table with an interscapular roll. The neck was prepped and draped in usual sterile fashion. Fluoroscopic x-ray and freer localized the C4-C5 interspace on the right side. After infiltration of 1:100,000 epinephrine and 1% lidocaine, I carried out a transverse skin incision from the midline to the sternocleidomastoid muscle. Next, using blunt and sharp dissection with Metzenbaum scissors, I proceeded in an avascular plane with Metzenbaum scissors. The C4-C5 and C5-C6 interspaces were identified with fluoroscopic x-ray and a spinal needle. Longus colli muscles were elevated from bodies of C4, C5 and C6. Osteophytes were removed anteriorly with Adson rongeurs. Retractor blades were placed deep to the longus colli muscles. [place] distracting pins were placed in the bodies of C4, C5 and C6. Each disc space was incised under distraction. The disc material was removed with pituitary rongeurs and curettes. The bony endplates were repaired with curettes. A microscope and Midas Toño drill were used to remove osteophytes posteriorly. The posterior longitudinal ligament was removed with Cloward rongeurs at C4-C5 and C5-C6. Next, a separate PEEK interbody cage was placed at C4-C5 and C5-C6. Prior to this, the cage was filled with bone stem cells. A separate anterior [facility] used to span the C4-C5 and C5-C6 interspaces. Then, 16-mm screws were placed through the holes and plate. Locking cams were tightened down over screw heads. Meticulous hemostasis was maintained throughout the wound. The wound was irrigated with copious amounts of Ancef irrigant solution. The platysma and subdermal layer were closed with interrupted 4-0 Vicryl suture. The skin was reapproximated with Steri-Strips and benzoin. A sterile dressing was applied to the wound. The patient was awakened in good condition and taken to recovery. All counts were reported as correct. Estimated blood loss was minimal. TRANSINT:[id number] Voice Confirmation ID: [id number] DOCUMENT ID: [id number] KASHIF STARR MD at 1612 CC: [id number] DICTATION DATE: 12/26/18 1355 SOLDER SPRAYER: 12/26/18 1422 [facility] [address] [place] [address]
--- NOTE | 2018-12-26 16:30 | NUR ---
PT RESTING IN BED, NO TONGUE DEVIATION NOTED AT THIS TIME, DRESSING TO NECK C/D/I. DENIES ANY TINGLING IN HANDS. VSS AND WNL. WILL CONT TO FOLLOW POC
--- NOTE | 2018-12-26 17:30 | NUR ---
PT RESTING IN BED, ATE 100% OF CLEAR LIQUID SUPPER. VSS AND WNL. NO SIGN OF TONGUE DEVIATION NOTED. DENIES ANY NUMBNESS TO HANDS AT THIS TIME. DENIES ANY FURTHER NEEDS. WILL CONT TO FOLLOW POC
--- NOTE | 2018-12-26 18:35 | NUR ---
PT YELLED OUT FOR NURSE TO COME TO ROOM. UPON ENTERING ROOM NOTICIED THAT PT WAS SHAKING. PT STATES HIS FINGERS ARE NUMB WELL. ASKED CHARGE NURSE WESLEY TO COME TO ROOM. WESLEY GENAO ATTEMPTED TO CALL AND PAGE BUT NO RETURN CALL BACK AT THIS TIME.
--- NOTE | 2018-12-26 19:00 | NUR ---
PT C/O LEFT ARM AND HAND NUMBNESS, PATIENT IS TREMBLING UNCONTROLLABLY IN THE ARM. DENIES PAIN, SHIFT ASSESSMENT COMPLETED SEE FLOWSHEET. VSS CPOC
--- NOTE | 2018-12-26 19:14 | NUR ---
CALLED DR STARR AT THIS TIME TO UPDATE ON PATIENT STATUS, WENT TO [employer] - MAILBOX IS FULL
--- NOTE | 2018-12-26 19:24 | NUR ---
DR STARR RETURNED CALL NEW ORDERS RECEIVED
--- NOTE | 2018-12-26 20:13 | NUR ---
SPOKE WITH [facility] IS NOT ON THE CASE FOR THIS PATIENT SO THEY WILL NOT BE ABLE TO MANAGE THE SLIDING SCALE, DECADRON GIVEN PER ORDER, WILL RECHECK BLOOD SUGARS FREQUENTLY, CALLED [facility] TO INFORM HIM [facility] COULD NOT MANAGE NO ANSWER
--- NOTE | 2018-12-26 20:27 | NUR ---
DR WATERMAN CONSULT CALLED, NEW ORDERS RECEIVED FOR DM MANAGEMENT
--- NOTE | 2018-12-26 20:32 | NUR ---
CONTACTED PHARMACY ABOUT NEW MEDICATION ORDERS WILL ADMINISTER LANTUS WHEN AVAILABLE
--- NOTE | 2018-12-26 22:47 | NUR ---
PT RESTING COMFORTABLY WITH EYES CLOSED UPON ENTERING ROOM. ROUSES EASILY TO VOICE, REASSESSMENT COMPLETED, DENIES NUMBNESS OR PAIN. VSS CPOC
[2018-12-27] VITALS (16 sets, daily range): BP systolic 103–170; BP diastolic 60–93; Ht 160 cm; Wt 77.4 kg
--- NOTE | 2018-12-27 01:10 | NUR ---
BLADDER SCAN PERFORMED 600 CC URINE IN BLADDER, PT DENIES FEELING LIKE HE NEEDS TO VOID - DENIES PAIN OR TENDERNESS ON PALPATION, VSS CPOC
--- NOTE | 2018-12-27 05:26 | NUR ---
PATIENT PROVIDED WITH BEDSIDE HAND HELD URINAL SAYS HE FEELS LIKE HE MIGHT CAN PEE AT THIS TIME BUT ISN'T SURE
--- NOTE | 2018-12-27 07:30 | NUR ---
REPORT RECEIVED. ASSESSMENT COMPLETE PER FLOW SHEET. VSS. NO NEW CHANGES PT RESTING COMFORTABLY WILL CONTINUE EFREN ONITOR
--- NOTE | 2018-12-27 09:34 | NUR ---
PT ATE 100% BREAKFAST NEEDS MET VSS NO NEW CHANGES WILL CONTINUE TO MONITOR
--- NOTE | 2018-12-27 14:40 | NUR ---
RECEIVED TO ROOM 2225 VIA FROM ICU. A/O X3. NO C/O AT THIS TIME. SKIN IS INTACT WITHOUT REDNESS EXCEPT SMALL INCISION TO RIGHT NECK, WHICH IS CLEAN DRY AND WELL APPROXIMATED. GETS UP PER SELF. DENIES NEEDS.
--- NOTE | 2018-12-27 15:01 | NUR ---
REHAB PRESCREENING CONSULT RECIEVED AND THE CHART HAS BEEN REVIEWED. HE IS [facility] MANAGED MEDICARE AND WILL REQUIRE A PREAUTH FOR THE ARU. HE WILL NEED A PT AND AN OT EVAL TO SUBMIT TO THEM FOR THEIR REVIEW. DISCUSSED WITH THE CM PAYTON MAST RN CLINICAL LIAISON, REHAB
--- NOTE | 2018-12-27 19:15 | NUR ---
PATIENT ALERT AND ORIENTED. HAS RIGHT SIDED NECK INCISION THAT IS CLEAN AND DRY. WELL APPROXIMATED INCISION. NO IV ACCESS AT THIS TIME. PO MEDS. REQUESTS PAIN MEDICINE WITH HS MEDICATIONS. CALL LIGHT IN REACH.
[2018-12-28] VITALS: BP 107/61
[2018-12-28 04:00] VITALS: BP 1538/75
[2018-12-28 05:03] LABS: BASOPHILS 0.2 % (0-2); EOSINOPHILS 0 % (0-7); HEMATOCRIT 36.8 % (42.0-54.0); HEMOGLOBIN 11.4 g/dL (13.5-17.5); IMMATURE GRANULOCYTES 0.2 % (0-5); LYMPHOCYTES 12.7 % (15-50); MCH 26.8 pg (26.0-34.0); MCV 86.6 fL (80.0-100.0); MEAN PLATELET VOLUME 10.3 fL (7.4-10.4); MONOCYTES 5.8 % (2-11); NEUTROPHILS 81.1 % (40-80); PLATELET COUNT 230 10x3/uL (130-400); RBC 4.25 10x6/uL (4.20-6.10); RDW 15.3 % (11.5-14.5); WBC 6.4 10x3/uL (4.8-10.8)
[2018-12-28 05:15] LABS: CALC OSMOLALITY 290 mosm/kg (275-300); CALCIUM 8.6 mg/dL (8.5-10.1); CARBON DIOXIDE 29.8 mmol/L (21.0-32.0); CHLORIDE - SERUM 108 mmol/L (98-107); GLUCOSE 126 mg/dL (74-106); POTASSIUM - SERUM 5.1 mmol/L (3.5-5.1); SODIUM 143 mmol/L (136-145); UREA NITROGEN 23 mg/dL (7-18); eGFR NON AFRICAN AMERICAN 79 mL/min (90-120)
[2018-12-28 08:41] VITALS: BP 140/69
--- NOTE | 2018-12-28 10:09 | NUR ---
PT RESTING IN BED. NO SIGNS OF DISTRESS. NO IV AT THIS TIME. HAS INCISION TO RIGHT SIDE OF NECK. DRESSING CLEAN AND INTACT. DENIES ANY FURTHER NEED AT THIS TIME. CALL LIGHT IN REACH. BED LOW POSITION. NO FAMILY AT BEDSIDE AT THIS TIME
--- NOTE | 2018-12-28 13:09 | NUR ---
PT IS WITHOUT NEEDS.CALL LIGHT IN REACH
[2018-12-28 14:19] VITALS: BP 121/55
[2018-12-28 20:00] VITALS: BP 145/64
--- NOTE | 2018-12-28 21:00 | NUR ---
A/O WITH NO SIGNS OF ACUTE DISTRESS. DENIES NEEDS AT THIS TIME. CONTINUE WITH PLAN OF CARE.
[2018-12-29] VITALS: BP 146/55
[2018-12-29 04:00] VITALS: BP 127/79
[2018-12-29 05:51] LABS: BASOPHILS 0.2 % (0-2); EOSINOPHILS 1.1 % (0-7); HEMATOCRIT 35.4 % (42.0-54.0); HEMOGLOBIN 11.1 g/dL (13.5-17.5); IMMATURE GRANULOCYTES 0.7 % (0-5); LYMPHOCYTES 25.6 % (15-50); MCHC 31.4 g/dL (31.0-37.0); MCV 86.1 fL (80.0-100.0); MEAN PLATELET VOLUME 10.9 fL (7.4-10.4); NEUTROPHILS 62.4 % (40-80); PLATELET COUNT 234 10x3/uL (130-400); RBC 4.11 10x6/uL (4.20-6.10); RDW 15.5 % (11.5-14.5); WBC 5.7 10x3/uL (4.8-10.8)
[2018-12-29 06:16] LABS: CALC OSMOLALITY 291 mosm/kg (275-300); CALCIUM 8.5 mg/dL (8.5-10.1); CARBON DIOXIDE 29.7 mmol/L (21.0-32.0); CHLORIDE - SERUM 107 mmol/L (98-107); CREATININE - SERUM 0.9 mg/dL (0.6-1.3); GLUCOSE 128 mg/dL (74-106); POTASSIUM - SERUM 4.5 mmol/L (3.5-5.1); SODIUM 143 mmol/L (136-145); UREA NITROGEN 26 mg/dL (7-18); eGFR NON AFRICAN AMERICAN 89 mL/min (90-120)
[2018-12-29 07:59] VITALS: BP 133/96
--- NOTE | 2018-12-29 08:00 | NUR ---
ASSESSMENT PER FLOW SHEET. PT IS WITHOUT DISTRESS.CALL LIGHT IN REACH.
[2018-12-29 14:17] VITALS: BP 124/71
--- NOTE | 2018-12-29 19:43 | NUR ---
REMAINS WITHOUT NEEDS,WITHOUT CHANGE.CONT PLAN OF CARE
[2018-12-29 20:00] VITALS: BP 170/89
--- NOTE | 2018-12-29 20:00 | NUR ---
A/O WITH NO SIGNS OF ACUTE DISTRESS. DENIES PAIN OR OTHER NEEDS AT THIS TIME. CONTINUE WITH PLAN OF CARE.
[2018-12-30] VITALS: BP 136/69
[2018-12-30 04:00] VITALS: BP 105/51
[2018-12-30 06:01] LABS: CALC OSMOLALITY 289 mosm/kg (275-300); CALCIUM 9.2 mg/dL (8.5-10.1); CARBON DIOXIDE 29.6 mmol/L (21.0-32.0); CHLORIDE - SERUM 104 mmol/L (98-107); CREATININE - SERUM 0.9 mg/dL (0.6-1.3); GLUCOSE 122 mg/dL (74-106); POTASSIUM - SERUM 4.2 mmol/L (3.5-5.1); SODIUM 143 mmol/L (136-145); UREA NITROGEN 25 mg/dL (7-18); eGFR NON AFRICAN AMERICAN 89 mL/min (90-120)
[2018-12-30 06:12] LABS: BASOPHILS 0.3 % (0-2); EOSINOPHILS 0.8 % (0-7); HEMATOCRIT 37.9 % (42.0-54.0); HEMOGLOBIN 11.9 g/dL (13.5-17.5); IMMATURE GRANULOCYTES 0.6 % (0-5); LYMPHOCYTES 22.8 % (15-50); MCH 26.9 pg (26.0-34.0); MCHC 31.4 g/dL (31.0-37.0); MCV 85.6 fL (80.0-100.0); MONOCYTES 8.6 % (2-11); NEUTROPHILS 66.9 % (40-80); PLATELET COUNT 277 10x3/uL (130-400); RBC 4.43 10x6/uL (4.20-6.10); RDW 15.3 % (11.5-14.5); WBC 7.1 10x3/uL (4.8-10.8)
--- NOTE | 2018-12-30 08:30 | NUR ---
PATIENT SITTING UP ON THE SIDE OF THE BED EATING. NO COMPLAINTS OR SIGNS OF DISTRESS. CALL LIGHT WITHIN REACH.
[2018-12-30 08:36] VITALS: BP 153/56
--- NOTE | 2018-12-30 11:50 | MORECARE ---
CASE MANAGEMENT DISCHARGE SUMMARY PATIENT: SILVA SEPULVEDA UNIT: [id number] ADM DATE: 12/27/18 AGE: 68 : 51 SEX: M ROOM/BED: D.2225 AUTHOR: RADHA WELLER PHYSICIAN: REFERRING PHYSICIAN: KASHIF STARR MD DATE OF SERVICE: 12/30/18 Discharge Plan Patient Name: SILVA SEPULVEDA Facility: [facility]:[place] : 1950 Planned Disposition: Inpatient Rehab Anticipated Discharge Date: Discharge Date: Expected LOS: Initial Reviewer: [id number] Initial Review Date: 12/30/2018 Generated: 12/30/18 12:50 pm Comments DCP- Discharge Planning Updated by [email or web address]: Flory Galeano on 12/30/18 10:[address] Patient Name: SILVA SEPULVEDA Admission Status: Elective Accout number: [id number] Admission Date: 12-27-2018 : 1950 Admission Diagnosis: Attending: KASHIF STARR Current LOS: 3 Anticipated DC Date: Planned Disposition: Inpatient Rehab Primary Insurance: [facility] MEDICARE SOLUTIONS Discharge Planning Comments: CM met with patient to complete initial dc planning assessment. CM educated patient on the CM role and verbal consent given by patient to complete assessment. Patient lives at home alone. Patient would like to go to inpatient rehab here at [facility]. I informed him that his insurance requires prior authorization for rehab and he has been ambulating fairly well and may not meet their criteria. I discussed options other than inpatient rehab and he declines SNF, but states he has had [facility] in the past and will go home with home health if insurance denies. He also states that he had spoken to insurance prior to surgery and rehab has been authorized already. I explained that they typically do not authorize rehab until post op and why, but he still wants to try and see if he will be authorized to go to inpatient rehab. He states his friend, Duke Barillas, will take him home on discharge. CM will continue to follow and will assist as needed with dc plans/needs. Tutorial Laboratory Supervisor: Flory Galeano DCPIA - Discharge Planning Initial Assessment Updated by [id number]: Flory Galeano on 12/30/18 11:43 am * Is the patient Alert and Oriented? Yes * How many steps to enter\exit or inside your home? 0/0 * PCP Dr. Alejandro * Pharmacy [facility] on [address] * Preadmission Environment Home Alone * ADLs Partial Dependent * Partial ADLs (Assistance needed) Ambulation * Equipment Cane Power Chair or Electric Scooter Walker * List name and contact numbers for known caregivers / representatives who currently or will assist patient after discharge: Duke Barillas - [phone] * Verbal permission to speak to the caregivers and representatives has been obtained from the patient. Yes * Community resources currently utilized None * Additional services required to return to the preadmission environment? No * Can the patient safely return to the preadmission environment? Yes * Has this patient been hospitalized within the prior 30 days at any hospital? No Coverage Notice Reviewer: [email or web address] Sukhdev Mcnulty Notice Issued Date-Time: 12/27/2018 17:26 Notice Type: Medicare Outpatient Observation Notice Notice Delivered To: Patient Relationship to Patient: Self Meal Room Hand Name: Delivery Method: HAND - Hand Delivered Princess Days: Prior Verbal Notification: Recipient Understood Notice: Yes Recipient Signature: Yes Med Rec Note Co-signed by Attending: Coverage Notice Comment: Reviewer: [id number] - Flory Galeano Notice Issued Date-Time: 12/30/2018 11:49 Notice Type: Patient Choice Letter Notice Delivered To: Patient Relationship to Patient: Self Meal Room Hand Name: Delivery Method: HAND - Hand Delivered Princess Days: Prior Verbal Notification: Recipient Understood Notice: Yes Recipient Signature: Yes Med Rec Note Co-signed by Attending: Coverage Notice Comment: [facility] for [facility] Patient Name: SILVA SEPULVEDA Page [id number] at 1150 All edits/amendments must be made on the electronic document DICTATION DATE: 12/30/18 1150 SETTER OFF: BERNICE 12/30/18 1150 RPT#: [id number] MS DATE: STATUS: ADM IN [facility] [address] [place] [address] END OF REPORT
[2018-12-30 17:25] VITALS: BP 120/69
--- NOTE | 2018-12-30 18:55 | NUR ---
PATIENT SITTING UP IN BED WITH SERVICE DOG AND FAMILY AT SIDE. NO COMPLAINTS OR SIGNS OF DISTRESS. CALL LIGHT MARIO CARRILLO.
--- NOTE | 2018-12-30 20:00 | NUR ---
A/O WITH NO SIGNS OF ACUTE DISTRESS. DENIES PAIN OR OTHER NEEDS AT THIS TIME. CONT PLAN OF CARE.
[2018-12-30 20:53] VITALS: BP 129/64
[2018-12-31 01:33] VITALS: BP 129/63
[2018-12-31 04:56] VITALS: BP 102/52
[2018-12-31 06:41] LABS: BASOPHILS 0.5 % (0-2); EOSINOPHILS 1.4 % (0-7); HEMATOCRIT 37.8 % (42.0-54.0); HEMOGLOBIN 12.1 g/dL (13.5-17.5); IMMATURE GRANULOCYTES 1.2 % (0-5); LYMPHOCYTES 30.5 % (15-50); MCH 27.4 pg (26.0-34.0); MCV 85.5 fL (80.0-100.0); MEAN PLATELET VOLUME 10.4 fL (7.4-10.4); MONOCYTES 9.3 % (2-11); NEUTROPHILS 57.1 % (40-80); PLATELET COUNT 274 10x3/uL (130-400); RBC 4.42 10x6/uL (4.20-6.10); RDW 15.5 % (11.5-14.5); WBC 8.1 10x3/uL (4.8-10.8)
[2018-12-31 06:50] LABS: ANION GAP 11.2 mmol/L (8-16); CALCIUM 8.4 mg/dL (8.5-10.1); CARBON DIOXIDE 34.4 mmol/L (21.0-32.0); POTASSIUM - SERUM 4.6 mmol/L (3.5-5.1)
[2018-12-31 06:51] LABS: CREATININE - SERUM 1.2 mg/dL (0.6-1.3)
--- NOTE | 2018-12-31 07:24 | NUR ---
PT RESTING IN BED WITH EYES OPEN, ALERT AND ORIENTED. NO IV PRESENT. NO S/S OF DISTRESS AND DENIES NEEDS AT THIS TIME, WILL CONT TO MONITOR.
[2018-12-31 09:09] VITALS: BP 120/59
[2018-12-31 11:43] VITALS: BP 117/89
--- NOTE | 2018-12-31 14:13 | NUR ---
OT NOTE: PT DOING WELL; SUPINE TO SIT WITH CGA; DYNAMIC SITTING BALANCE ON EOB IS GOOD-. ABLE TO DOE GOWN WITH MIN ASSIST; ABLE TO DOE SOCKS WHILE SITTING UP WITH SET UP AND EXT TIME. ABLE TO WASH HANDS AND FACE WITH SET UP; TOILETING WITH CGA. PT CONT TO ATTEMPT TO AMB WITHOUT WALKER, HOWEVER, GAIT REMAINS UNSTEADY DURING IN ROOM AMBULATION. PT AMB INTO HALLWAY WITH WALKER AND CGA. TRANSFERRED TO CHAIR WITH CGA. SRIKANTH PARRA,OTR/L
--- NOTE | 2018-12-31 14:41 | NUR ---
OT NOTE: PT COMPLETED ADL MOB WITH CGA. PT COMPLETED SIT TO STAND WITH CGA. PT COMPLETED GROOMING TASKS WITH SET UP. THANK YOU, RADHA HILARIO
[2018-12-31 16:20] VITALS: BP 147/76
--- NOTE | 2018-12-31 17:29 | NUR ---
FSBS 85, NO TREATMENT NEEDED.
--- NOTE | 2018-12-31 19:30 | NUR ---
PT SITTING UP IN BED WITHOUT DISTRESS, AOX4. FRIEND AT BEDSIDE. STATES NO PAIN OR COMPLAINTS AT THIS TIME. DENIES NEEDS. CL IN REACH, WILL CTM
--- NOTE | 2018-12-31 21:00 | NUR ---
FSBS 155, LANTUS GIVEN ORDERED. PT PROVIDED WITH HS SNACK OVER RAD CRACKERS AND PB. DENIES OTHER NEEDS. WILL CTM
[2018-12-31 21:13] VITALS: BP 147/64
[2019-01-01 01:20] VITALS: BP 150/60
[2019-01-01 05:11] VITALS: BP 154/74
[2019-01-01 05:34] LABS: BASOPHILS 0.6 % (0-2); EOSINOPHILS 1.4 % (0-7); HEMATOCRIT 38.4 % (42.0-54.0); HEMOGLOBIN 12.3 g/dL (13.5-17.5); LYMPHOCYTES 22.4 % (15-50); MCH 27.4 pg (26.0-34.0); MCV 85.5 fL (80.0-100.0); MEAN PLATELET VOLUME 10.6 fL (7.4-10.4); MONOCYTES 7.6 % (2-11); PLATELET COUNT 268 10x3/uL (130-400); RBC 4.49 10x6/uL (4.20-6.10); RDW 15.5 % (11.5-14.5); WBC 8.3 10x3/uL (4.8-10.8)
[2019-01-01 06:19] LABS: CALC OSMOLALITY 290 mosm/kg (275-300); CALCIUM 8.1 mg/dL (8.5-10.1); CARBON DIOXIDE 29.6 mmol/L (21.0-32.0); CHLORIDE - SERUM 104 mmol/L (98-107); GLUCOSE 122 mg/dL (74-106); POTASSIUM - SERUM 4.6 mmol/L (3.5-5.1); SODIUM 142 mmol/L (136-145); UREA NITROGEN 33 mg/dL (7-18); eGFR NON AFRICAN AMERICAN 79 mL/min (90-120)
--- NOTE | 2019-01-01 07:30 | NUR ---
PT IS RESTING IN BED WITH EYES CLOSED. RESPIRATIONS ARE EVEN AND UNLABORED. PT IS EASILY AROUSED WITH VERBAL STIMULATION. PT IS AAO X 4 UPON AROUSAL. PT DENIES PRESENCE OF PAIN/N/V AT THIS TIME. PT DENIES FURTHER NEEDS. BED IS IN THE LOWEST POSITION. CALL LIGHT AND BEDSIDE TABLE ARE WITHIN REACH. SIDE RAILS X 2. WILL CONT TO MONITOR.
[2019-01-01 08:01] VITALS: BP 141/60
--- NOTE | 2019-01-01 09:39 | NUR ---
Rehab Note- Call from Janis with [facility] the patient is denied an inpatient acute rehab stay. Peer to Peer can be set up by 01/02/19 @ 1038 by calling [phone] Ext [phone]. Thank you for this referral! Marycruz Au RN Clinical Liaison, [facility] Rehab
[2019-01-01] MEDS ORDERED: ROBAXIN PO (12:17)
--- NOTE | 2019-01-01 13:20 | MORECARE ---
CASE MANAGEMENT DISCHARGE SUMMARY PATIENT: SILVA SEPULVEDA UNIT: [id number] ADM DATE: 12/27/18 AGE: 68 : 51 SEX: M ROOM/BED: D.2225 AUTHOR: NITHINDOC PHYSICIAN: REFERRING PHYSICIAN: KASHIF STARR MD DATE OF SERVICE: 01/01/19 Discharge Plan Patient Name: SILVA SEPULVEDA Facility: [facility]:[place] : 1950 Planned Disposition: Inpatient Rehab Anticipated Discharge Date: Discharge Date: Expected LOS: Initial Reviewer: [email or web address] Initial Review Date: 12/30/2018 Generated: 01/01/19 2:19 pm Comments DCP- Discharge Planning Updated by [email or web address]: Flory Galeano on 01/01/19 12:[address] Patient was denied inpatient rehab by his insurance company. I informed the patient, he would like to go home with [facility]. I called [facility] and spoke with Lakeshia and clinical faxed. Dr. Alejandro has been here and ok for discharge. Dr. Starr called and discharge orders received. Patient states a friend will drive him home. CM will continue to follow and assist with discharge planning/needs. DCP- Discharge Planning Updated by [id number]: Flory Galeano on 12/30/18 10:[address] Patient Name: SILVA SEPULVEDA Admission Status: Elective Accout number: [id number] Admission Date: 12-27-2018 : 1950 Admission Diagnosis: Attending: KASHIF STARR Current LOS: 3 Anticipated DC Date: Planned Disposition: Inpatient Rehab Primary Insurance: [facility] MEDICARE SOLUTIONS Discharge Planning Comments: CM met with patient to complete initial dc planning assessment. CM educated patient on the CM role and verbal consent given by patient to complete assessment. Patient lives at home alone. Patient would like to go to inpatient rehab here at [facility]. I informed him that his insurance requires prior authorization for rehab and he has been ambulating fairly well and may not meet their criteria. I discussed options other than inpatient rehab and he declines SNF, but states he has had [facility] in the past and will go home with home health if insurance denies. He also states that he had spoken to insurance prior to surgery and rehab has been authorized already. I explained that they typically do not authorize rehab until post op and why, but he still wants to try and see if he will be authorized to go to inpatient rehab. He states his friend, Duke Barillas, will take him home on discharge. CM will continue to follow and will assist as needed with dc plans/needs. Senior Living Sales Counselor: Flory Galeano DCPIA - Discharge Planning Initial Assessment Updated by [email or web address]: Flory Galeano on 12/30/18 11:43 am * Is the patient Alert and Oriented? Yes * How many steps to enter\exit or inside your home? 0/0 * PCP Dr. Alejandro * [facility] [address] * Preadmission Environment Home Alone * ADLs Partial Dependent * Partial ADLs (Assistance needed) Ambulation * Equipment Cane Power Chair or Electric Scooter Walker * List name and contact numbers for known caregivers / representatives who currently or will assist patient after discharge: Duke Barillas - [phone] * Verbal permission to speak to the caregivers and representatives has been obtained from the patient. Yes * Community resources currently utilized None * Additional services required to return to the preadmission environment? No * Can the patient safely return to the preadmission environment? Yes * Has this patient been hospitalized within the prior 30 days at any hospital? No External Providers External Provider: [facility] Next Contact Date: Service Request Date: Service Type: Resolution: Reviewer: Comments: Coverage Notice Reviewer: [email or web address] Sukhdev Mcnulty Notice Issued Date-Time: 12/27/2018 17:26 Notice Type: Medicare Outpatient Observation Notice Notice Delivered To: Patient Relationship to Patient: Self Application Tester Name: Delivery Method: HAND - Hand Delivered Princess Days: Prior Verbal Notification: Recipient Understood Notice: Yes Recipient Signature: Yes Med Rec Note Co-signed by Attending: Coverage Notice Comment: Reviewer: [id number] - Folry Galeano Notice Issued Date-Time: 12/30/2018 11:49 Notice Type: Patient Choice Letter Notice Delivered To: Patient Relationship to Patient: Self Application Tester Name: Delivery Method: HAND - Hand Delivered Princess Days: Prior Verbal Notification: Recipient Understood Notice: Yes Recipient Signature: Yes Med Rec Note Co-signed by Attending: Coverage Notice Comment: CANDELARIA Pugh [facility] Last DP export: 12/30/18 10:50 Patient Name: SILVA SEPULVEDA Page [id number] at 1320 All edits/amendments must be made on the electronic document DICTATION DATE: 01/01/191318 RIP SAW OPERATOR: BERNICE 01/01/191318 RPT#: [id number] DC DATE: STATUS: ADM IN [facility] [address] [place] [address] END OF REPORT
--- NOTE | 2019-01-01 13:29 | NUR ---
OT NOTE: PT DOING WELL; BED MOB WITH SPV; SET UP WITH EXT TIME TO DOE SOCKS WHILE ON EOB; IN ROOM AMBULATION WITH WALKER AND SBA/CGA. SINK HYGIENE WITH SBA; TOILETING WITH CGA SRIKANTH PARRA OTR/L
[2019-01-01 13:57] VITALS: BP 112/76
--- NOTE | 2019-01-01 14:12 | NUR ---
SOFT C COLLAR GIVEN TO PT AND PLACED AROUND PT NECK. PT EDUCATED ON WHEN TO WEAR AND IMPORTANCE OF WEARING. PT DENIES FURTHER NEEDS/QUESTIONS/CONCERNS. PT VERBALIZES UNDERSTANDING.
--- NOTE | 2019-01-01 15:57 | NUR ---
PT TRANSPORTED FROM ROOM VIA WHEELCHAIR. PT DENIES FURTHER QUESTIONS/CONCERNS/NEEDS AT THIS TIME. PT THANKS ME FOR CARE TODAY. PT STAETS THAT HE HAS ALL PERSONAL BELONGINGS.
--- NOTE | 2019-01-01 17:29 | NUR ---
OT NOTE: PT COMPLETED TOILETING TASKS WITH CGA. PT COMPLETED ADL MOB WITH SBA. PT COMPLETED BED MOB WITH SPV. THANK YOU, RADHA HILARIO
--- NOTE | 2019-01-02 16:48 | MORECARE ---
CASE MANAGEMENT DISCHARGE SUMMARY PATIENT: SILVA SEPULVEDA UNIT: [id number] ADM DATE: 12/27/18 AGE: 68 : 51 SEX: M ROOM/BED: D.2225 AUTHOR: NITHINDOC PHYSICIAN: REFERRING PHYSICIAN: KASHIF STARR MD DATE OF SERVICE: 01/02/19 Discharge Plan Patient Name: SILVA SEPULVEDA Facility: [facility]:[place] : 1950 Planned Disposition: Inpatient Rehab Anticipated Discharge Date: Discharge Date: 01/01/2019 Expected LOS: 0 Initial Reviewer: [email or web address] Initial Review Date: 12/30/2018 Generated: 01/02/19 5:47 pm DCP- Discharge Planning Updated by [email or web address]: Flory Galeano on 01/01/19 12:[address] Patient was denied inpatient rehab by his insurance company. I informed the patient, he would like to go home with [facility] [address]. I called [facility] and spoke with Lakeshia and clinical faxed. Dr. Alejandro has been here and ok for discharge. Dr. Starr called and discharge orders received. Patient states a friend will drive him home. CM will continue to follow and assist with discharge planning/needs. DCP- Discharge Planning Updated by [email or web address]: Flory Galeano on 12/30/18 10:[address] Patient Name: SILVA SEPULVEDA Admission Status: Elective Accout number: [id number] Admission Date: 12-27-2018 : 1950 Admission Diagnosis: Attending: KASHIF STARR Current LOS: 3 Anticipated DC Date: Planned Disposition: Inpatient Rehab Primary Insurance: [facility] MEDICARE SOLUTIONS Discharge Planning Comments: CM met with patient to complete initial dc planning assessment. CM educated patient on the CM role and verbal consent given by patient to complete assessment. Patient lives at home alone. Patient would like to go to inpatient rehab here at [facility]. I informed him that his insurance requires prior authorization for rehab and he has been ambulating fairly well and may not meet their criteria. I discussed options other than inpatient rehab and he declines SNF, but states he has had [facility] in the past and will go home with home health if insurance denies. He also states that he had spoken to insurance prior to surgery and rehab has been authorized already. I explained that they typically do not authorize rehab until post op and why, but he still wants to try and see if he will be authorized to go to inpatient rehab. He states his friend, Duke Barillas, will take him home on discharge. CM will continue to follow and will assist as needed with dc plans/needs. Label Designer: Flory Galeano DCPIA - Discharge Planning Initial Assessment Updated by [email or web address]: Flory Galeano on 12/30/18 11:43 am * Is the patient Alert and Oriented? Yes * How many steps to enter\exit or inside your home? 0/0 * PCP Dr. Alejandro * Pharmacy [facility] on [address] * Preadmission Environment Home Alone * ADLs Partial Dependent * Partial ADLs (Assistance needed) Ambulation * Equipment Cane Power Chair or Electric Scooter Walker * List name and contact numbers for known caregivers / representatives who currently or will assist patient after discharge: Duke Barillas - [phone] * Verbal permission to speak to the caregivers and representatives has been obtained from the patient. Yes * Community resources currently utilized None * Additional services required to return to the preadmission environment? No * Can the patient safely return to the preadmission environment? Yes * Has this patient been hospitalized within the prior 30 days at any hospital? No Coverage Notice Reviewer: [id number] - Liliana Mcnulty Notice Issued Date-Time: 12/27/2018 17:26 Notice Type: Medicare Outpatient Observation Notice Notice Delivered To: Patient Relationship to Patient: Self [employer] Teacher Name: Delivery Method: HAND - Hand Delivered Princess Days: Prior Verbal Notification: Recipient Understood Notice: Yes Recipient Signature: Yes Med Rec Note Co-signed by Attending: Coverage Notice Comment: Reviewer: [id number] - Flory Galeano Notice Issued Date-Time: 12/30/2018 11:49 Notice Type: Patient Choice Letter Notice Delivered To: Patient Relationship to Patient: Self [employer] Teacher Name: Delivery Method: HAND - Hand Delivered Princess Days: Prior Verbal Notification: Recipient Understood Notice: Yes Recipient Signature: Yes Med Rec Note Co-signed by Attending: Coverage Notice Comment: CANDELARIA for [facility] Last DP export: 01/01/19 12:20 Patient Name: SILVA SEPULVEDA Page 18228 at 1648 All edits/amendments must be made on the electronic document DICTATION DATE: 01/02/191646 TOPPIECE CHOPPER: BERNICE 01/02/191646 RPT#: [id number] DC DATE:01/01/19 STATUS: DIS IN [facility] [address] [facility] [place] [address] END OF REPORT
== END 2019-01-01 15:59 | disposition home health service (06) ==
LOC: OBSVTIME → D.OPS 06:30 → D.ICU 06:30 → D.PAN 07:30 → D.OPS 07:30 → D.ICU 13:38 → D.OPS 12-27 14:35 → D.MS 12-27 14:36 → D.OPS 12-27 14:36 → OBSVTIME 12-27 16:31 → D.MS 01-01 15:59 → D.OPS 01-01 15:59 → D.MS 01-01 15:59
PROVIDERS: Anesthesiology; Family Medicine; ATTEND Neurological Surgery
PROC: 0RB30ZZ Excision of Cervical Vertebral Disc, Open Approach (ICD-10-PCS; principal; 2018-12-26 09:30)
PROC: 0RG20A0 Fusion of 2 or more Cervical Vertebral Joints with Interbody Fusion Device, Anterior Approach, Anterior Column, Open Approach (ICD-10-PCS; 2018-12-26 09:30)
DX: M50.221 Other cervical disc displacement at C4-C5 level (principal); M25.78 Osteophyte, vertebrae; I11.0 Hypertensive heart disease with heart failure; J44.9 Chronic obstructive pulmonary disease, unspecified; E10.8 Type 1 diabetes mellitus with unspecified complications; I50.9 Heart failure, unspecified; I25.10 Atherosclerotic heart disease of native coronary artery without angina pectoris; E78.5 Hyperlipidemia, unspecified; M54.12 Radiculopathy, cervical region; R53.81 Other malaise; M10.9 Gout, unspecified; M19.90 Unspecified osteoarthritis, unspecified site

== ENCOUNTER 2019-02-04 12:47 | Emergency (ER) | payer MEDICARE ==
[~2019-02-04] VITALS: Ht 160 cm; Wt 74.1 kg
[~2019-02-04 12:47] MED LIST changes: +ROBAXIN PO
[2019-02-04 12:56] VITALS: Ht 160 cm; Wt 74.1 kg
[2019-02-04 16:09] VITALS: BP 125/60
== END 2019-02-04 16:10 | disposition home or self-care (01) ==
LOC: D.ER 12:47
DX: T81.9XXA Unspecified complication of procedure, initial encounter (principal); W19.XXXA Unspecified fall, initial encounter; Y93.9 Activity, unspecified; Y92.9 Unspecified place or not applicable; J44.9 Chronic obstructive pulmonary disease, unspecified; Z79.4 Long term (current) use of insulin; E11.40 Type 2 diabetes mellitus with diabetic neuropathy, unspecified; I10 Essential (primary) hypertension

== ENCOUNTER → 2019-02-07 10:44 | Outpatient (CLI) | payer MEDICARE ==
[2019-02-04 12:56] VITALS: BMI 28.9
== END | disposition home or self-care (01) ==
LOC: D.MRI 10:30
PROVIDERS: ATTEND Family Medicine
DX: H54.7 Unspecified visual loss (principal)

== ENCOUNTER → 2019-02-18 10:52 | Outpatient (CLI) | payer MEDICARE ==
[2019-02-04 12:56] VITALS: BMI 28.9
== END | disposition home or self-care (01) ==
LOC: D.HCCECHO 10:52 → D.HCCARDIO 11:30 → D.HCCECHO 11:30
PROVIDERS: ATTEND Internal Medicine Cardiovascular Disease
DX: I25.10 Atherosclerotic heart disease of native coronary artery without angina pectoris (principal)

== ENCOUNTER 2019-03-17 18:48 | Observation (INO) | payer MEDICARE ==
[~2019-03-17] VITALS: Ht 160 cm; Wt 74.1 kg
--- NOTE | ~2019-03-17 | HEMODYNAMI ---
PATIENT:SILVA SEPULVEDA MEDICAL RECORD: [id number] : 52 LOCATION:[facility] D.2114 [facility]# [id number] ADMISSION DATE: 03/17/19 Generatedon:03/18/201913:27 Patient name: SILVA SEPULVEDA Patient #: [id number] SSN: [id number] : 1950 Date of study: 03/18/2019 Page: Of Hemodynamic Procedure Report Patient Data Patient Demographics First Name: SILVA Gender: Male Last Name: COCO : 1950 Middle Initial: L Age: 69 year(s) Patient #: [id number] Race: SSN: [id number] Additional ID: [id number] Contact details [address]: [address] [place] [address] State: [place] City: [place] Zip code: [address] Past Medical History Allergies Allergen Reaction Date Comments Reported Other allergy 03/07/2018 shellfish and tomatoes Admission Admission Data Admission Date: 03/17/2019 Admission Time: 21:38 Arrival Date: 03/18/2019 Arrival Time: 0:00 Admit Source: Other Insurance Payor: Medicare Room #: D.2114 [facility] #: [id number] Height (in.): 62.99 BSA: 1.77 (m2) Height (cm.): 160 BMI: 28.91 (kg/m2) Weight (lbs.): 163.14 Weight (kg.): 74 Lab Results Lab Result Date: 03/18/2019 Lab Result Time: 0:00 Biochemistry Name Units Result Min Max BUN mg/dl 17 --(---*)-- 7 18 Creatinine mg/dl 1 --(--*-)-- 0.6 1.3 CBC Name Units Result Min Max Hemoglobin g/dl 11.9 *-(----)-- 13.5 17.5 Procedure Procedure Types Cath Procedure Diagnostic Procedure [facility] w/Coronaries Sedation Charges Moderate Sedation up to 15 minutes Procedure Description Procedure Date Procedure Date: 03/18/2019 Procedure Start Time: 13:14 Procedure End Time: 13:24 Procedure Staff Name Function Capo Marrero MD Performing Physician Yuridia Tobar RT Monitor Vikki Marr RN Nurse Candice Catherine RT Scrub Indication Chest pain Procedure Data Cath Procedure Fluoroscopy Diagnostic fluoroscopy Total fluoroscopy Time: 2.2 time: 2.2 min min Diagnostic fluoroscopy Total fluoroscopy dose: 387 dose: 387 mGy mGy Contrast Material Contrast Material Type Amount (ml) Isovue 300 55 Entry Location Entry Primary Successful Side Size Upsize Upsize Entry Closure Succes sful Closure Location (Fr) 1 (Fr) 2 (Fr) Remarks Device Remarks Femoral Right 5 Fr Exoseal artery Estimated blood loss: 10 ml Diagnostic catheters Device Type Used For End Catheter Placement MULTIPACK JL 4.0 5Fr Procedure catheter DIAGNOSTIC JL 3.5 5Fr Procedure catheter ([id number]) MULTIPACK 3DRC 5Fr Procedure catheter MULTIPACK Pigtail 5 Fr Ventriculography catheter Procedure Complications No complications Procedure Medications Medication Administration Route Dosage 0.9% NaCl I.V. 100 ml/hr Oxygen etCO2 Nasal cannula 2 l/min Lidocaine 2% added to field 20 Heparin Flush Bag added to field 2 bags (1000units/500ml NS) Versed I.V. 2 mg Fentanyl I.V. 50 mcg Hemodynamics Rest BSA: 1.77 (m2) HGB: 11.9 (g/dl) O2 Consumption: Estimated: 220.64 (ml/min) O2 Co nsumption indexed: Estimated:124.66 (ml/min/m) Heart Rate: 93 (bpm) Pressure Samples Time Site Value (mmHg) Purpose Heart Use Rate(bpm) 13:21 LV 119/8,12 Snapshot 94 Gradients Valve Time Site Site Mean SEP/DFP Peak To Heart Use 1 2 (mmHg) (sec/min) Peak Rate (mmHg) (bpm) Aortic 13:21 LV AO 93 Snapshots Pre Cath Intra NCS Post Cath Vital Signs Time Heart Resp SPO2 etCO2 NIBP (mmHg) Rhythm Pain Sedation Rate (ipm) (%) (mmHg) Status Level (bpm) 12:59:23 88 16 95 16 142/80(109) NSR 0 (11) 10(A) , No pain 13:03:39 88 17 97 0 127/74(108) NSR 0 (11) 10(A) , No pain 13:08:38 90 10 98 25.6 Measuring NSR 0 (11) 10(A) , No pain 13:09:45 91 11 98 24.8 122/79(101) NSR 0 (11) 10(A) , No pain 13:13:49 92 16 98 27.1 139/88(125) NSR 0 (11) 10(A) , No pain 13:18:05 94 29 97 20.3 148/73(122) NSR 0 (11) 10(A) , No pain 13:23:04 93 17 98 22.6 Measuring NSR 0 (11) 10(A) , No pain 13:23:12 93 16 98 22.6 134/85(116) NSR 0 (11) 10(A) , No pain Medications Time Medication Route Dose Verified Delivered Reason Notes Eff ectiveness by by 12:58:36 0.9% NaCl I.V. 100 Capo Vikki used for ml/hr Elida Tejinder procedure MD GENAO 12:58:43 Oxygen etCO2 2 Capo Brenneryla used for Nasal l/min Elida Tejinder procedure cannula MD GENAO 12:58:48 Lidocaine 2% added 20ml Capo Scanlon for local to vial Elida Elida anesthetic field MD GRANGER 12:58:52 Heparin Flush added 2 Capo Capo used for Bag to bags Elida Elida procedure (1000units/500ml field MD GRANGER NS) 13:02:15 Versed I.V. 2 mg Capo Vikki for Elida Tejinder sedation MD GENAO 13:02:20 Fentanyl I.V. 50 Capo Brenneryla for mcg ElidaGeraldo Marr sedation diversity specialist Log Time Note 12:41:00 Admit Source: Other 12:41:02 Arrival Date: 03/18/2019 12:00:00 AM 12:41:10 Insurance Payor : Medicare 12:41:17 Patient Height : 62.99 inches 12:41:21 Patient Weight : 163.14 lbs 12:42:15 Lab Result : BUN 17 mg/dl 12:42:15 Lab Result : Hemoglobin 11.9 g/dl 12:42:15 Lab Result : Creatinine 1 mg/dl 12:42:58 Indication : Chest pain 12:43:20 Procedure Status Urgent Heart Cath (IP). 12:43:25 Vikki Tejinder RN sent for patient. Start room use. 12:43:27 Time tracking: Regular hours (M-F 7:00 - 5:00) 12:43:32 Plan of Care:Hemodynamics will remain stable., Cardiac rhythm will remain stable., Comfort level will be maintained., Respiratory function will remain adequate., Patient/ family verbilizes understanding of procedure., Procedure tolerated without complication., Recovers from procedure without complications.. 12:43:39 Patient received from Med II to CCL 2 Alert and oriented. Tansferred to table in Supine position. 12:43:40 Warm blankets applied, and everardo hugger turned on for patient comfort. 12:43:44 Correct patient and procedure confirmed by team. 12:44:00 H&P Date Dictated: 03/17/2019 Within 30 days and on chart., H&P Addendum completed by physician on day of procedure. (MUST COMPLETE FOR ALL OUTPATIENTS). 12:44:02 Pre-procedure instructions explained to patient. 12:44:05 Family in waiting room. 12:44:06 Patient NPO since Midnight. 12:44:37 Is the patient allergic to Iodine/contrast media? No. 12:44:40 Was the patient premedicated? Yes 12:44:58 2) 60-89 Mildly reduced kidney function, and other findings (as for stage 1) point to kidney disease. 12:45:16 Maximum allowable contrast dose (3.7 X eGFR X 0.75)219 ml. 12:58:21 ECG and BP/O2 sat monitors applied to patient. 12:58:22 Vital chart was started 12:58:23 Baseline sample Acquired. 12:58:27 Rhythm: sinus rhythm 12:58:28 Full Disclosure recording started 12:58:36 0.9% NaCl 100 ml/hr I.V. was administered by Vikki Marr RN; used for procedure; Verbal order read back and verified. 12:58:37 Is patient on blood thinner?Yes 12:58:41 ACC The patient was administered the following blood thiners within the last 24 hours: ACCPlavix 12:58:43 Oxygen 2 l/min etCO2 Nasal cannula was administered by Vikki Marr RN; used for procedure; Verbal order read back and verified. 12:58:43 Patient diabetic? Yes. 12:58:44 If diabetic: On Metformin? No 12:58:48 Lidocaine 2% 20ml vial added to field was administered by Capo Marrero MD; for local anesthetic; Verbal order read back and verified. 12:58:48 Snore? Unknown 12:58:49 Sleep apnea? Yes 12:58:52 Heparin Flush Bag (1000units/500ml NS) 2 bags added to field was administered by Capo Marrero MD; used for procedure; Verbal order read back and verified. 12:58:54 Airway obstruction? Yes copd 12:59:04 IV patent on arrival in left forearm with 0.9% NaCl at [facility]. 12:59:09 Lab results completed and on chart. 12:59:15 Stress Test: no; abnormal ? 12:59:19 Right groin area was prepped with chlora-prep and draped in sterile fashion 12:59:20 Alarms reviewed by R. N. 12:59:20 Sharps counted by scrub and verified by R.N. 12:59:21 Physician arrived 12:59:22 --------ALL STOP TIME OUT------ 12:59:23 Final Timeout: patient, procedure, and site verified with staff and physician. All members of the team are in agreement. 12:59:25 Right groin site verified by team. 12:59:28 Fire Safety Assessment: A--An alcohol-based skin anteseptic being used preoperatively., C--Open oxygen or nitrous oxide is being used., D--An ESU, laser, or fiber-optic light is being used. 13:01:35 Physical assessment completed. ASA score P 3 - A patient with severe systemic disease as per Capo Marrero MD. 13:01:39 Sedation plan: IV Moderate Sedation Medication:Versed, Fentanyl 13:01:43 Use device set Femoral Dx 13:01:45 ACIST Syringe (69544) opened to sterile field. 13:01:46 Bag Decanter (2002) opened to sterile field. 13:01:46 Medline Cath Pack ([id number]) opened to sterile field. 13:01:48 ACIST Hand Control (11867) opened to sterile field. 13:01:48 ACIST Manifold (02005) opened to sterile field. 13:01:49 DIAGNOSTIC Multipack 5Fr catheter set (XW7659) opened to sterile field. 13:01:51 SHEATH 5FR Dover (SDX739) opened to sterile field. 13:01:52 EMERALD Guide Wire (577-572) opened to sterile field. 13:02:15 Versed 2 mg I.V. was administered by Vikki Marr RN; for sedation; Verbal order read back and verified. 13:02:20 Fentanyl 50 mcg I.V. was administered by Vikki Marr RN; for sedation; Verbal order read back and verified. 13:05:02 Risk of Mortality: .2 13:05:06 Risk of blood transfusion: 1.2 13:05:09 Risk of AMAN: 2.1 13:10:42 Zero performed for pressure channel P1 13:14:09 Procedure started. 13:14:32 Local anesthetic to right femoral artery with Lidocaine 2% by Capo Marrero MD.INITIAL ACCESS ONLY 13:14:46 A 5 Fr sheath was inserted into the Right Femoral artery 13:15:35 A MULTIPACK JL 4.0 5Fr catheter was advanced over the wire and used for Procedure. 13:17:07 Catheter removed. 13:18:23 A DIAGNOSTIC JL 3.5 5Fr catheter ([id number]) was advanced over the wire and used for Procedure. 13:18:45 LCA angiography performed. 13:19:19 Catheter removed. 13:19:47 A MULTIPACK 3DRC 5Fr catheter was advanced over the wire and used for Procedure. 13:20:12 RCA angiography performed. 13:20:25 Catheter removed. 13:20:53 A MULTIPACK Pigtail 5 Fr catheter was advanced over the wire and used for Ventriculography. 13:21:54 EF : 55 % 13:21:56 Tegaderm 4 x 4 (1626W) opened to sterile field. 13:21:57 EXOSEAL 5Fr (EX500) opened to sterile field. 13:22:04 Catheter removed. 13:22:16 Sheath removed intact; hemostasis achieved with Exoseal to the Right Femoral artery. 13:22:25 Procedure ended.(Physican Out) :22:47 Fluoroscopy time 02.20 minutes. 13:22:51 Flurop Dose total: 387 13:22:51 Fluoroscopy dose: 387 mGy 13:23:06 Dose Area Product 93267 mGy/cm. 13:23:09 Contrast amount:Isovue 300 55ml. 13:23:11 Maximum allowable dose exceeded? No. 13:23:13 Sharps counted by scrub and verified by R.N. 13:23:14 Insertion/operative site no bleeding no hematoma. 13:23:16 Post-op/insertion site Right Femoral artery dressed using a 4 x 4 and Tegaderm. 13:23:27 Post-procedure physical assessment completed. ASA score P 3 - A patient with severe systemic disease as per Capo Marrero MD. 13:23:38 Post procedure rhythm: sinus rhythm 13:23:40 Estimated blood loss: 10 ml 13:23:41 Post procedure instruction explained to patient.Patient verbalizes understanding. 13:23:42 Patient needs reinforcement of post procedure teaching. 13:23:58 Procedure type changed to Cath procedure, Diagnostic procedure, LHC, LHC w/Coronaries, Sedation Charges, Moderate Sedation up to 15 minutes 13:23:59 Procedure and supply charges have been captured, reviewed, submitted and are correct. 13:24:15 Procedure Complication : No complications 13:24:19 Vital chart was stopped 13:24:29 Report given to [facility]. 13:24:46 Patient transfered to [facility] with Bed. 13:24:49 Procedure ended. 13:24:49 Full Disclosure recording stopped 13:24:55 End room use (Document Last) 13:25:09 End room use (Document Last) 13:26:59 End room use (Document Last) Device Usage Item Name Manufacture Quantity Catalog Hospital Part Current Minimal L ot# / Number Charge Number Stock Stock Serial# Code ACIST Acist 1 93550 619602 736426 740463 20 Syringe Medical (41104) Systems Inc Bag Microtek 1 612688 43757 008233 5 Decanter Medical Inc. () Medline Medline 1 [id number] 842215 04023 821134 5 Cath Pack ([id number]) ACIST Hand Acist 1 30758 880431 202616 049635 5 Control Medical (86633) Systems Inc ACIST Acist 1 39506 714190 071152 164181 5 Manifold Medical (33959) Systems Inc DIAGNOSTIC Cardinal 1 QN1281 429106 18076 750093 30 Run [facility] 5Fr catheter set (LO9267) SHEATH 5FR Terumo 1 GRD000 301240 592370 761579 5 Dover (YHG713) EMERALD Cardinal 1 196-263 900444 743292 318639 5 Guide Wire Health (494-917) MULTIPACK Cardinal 1 061228 5 JL 4.0 5Fr Health catheter DIAGNOSTIC Cardinal 1 [id number] 669668 035309 565602 5 JL 3.5 5Fr Health catheter (149554V) MULTIPACK Cardinal 1 953231 5 3DRC 5Fr Health catheter MULTIPACK Cardinal 1 306703 5 Pigtail 5 Health Fr catheter Tegaderm 4 3M 1 1626W 135554 729010 720611 5 x 4 (1626W) EXOSEAL 5Fr Cardinal 1 EX500 879747 395790 513026 10 (EX500) Health Signature Audit Kneeland Stage Time Signature Unsigned Intra-Procedure 03/18/2019 Yuridia Tobar 1:25:09 PM RT(R) Intra-Procedure 03/18/2019 Vikki Marr 1:26:59 PM RN Intra-Procedure 03/18/2019 Capo Pérez 1:27:20 PM Geraldo GRANGER Signatures Performing Physician : Signature : Capo Marrero MD Date : Time : Monitor : Yuridia Tobar Signature : RT Date : Time : Nurse : Vikki Marr RN Signature : Date : Time : [facility] [address] [place] [address]
[2019-03-17 18:57] VITALS: BP 121/62
[2019-03-17 19:43] LABS: BASOPHILS 0.3 % (0-2); EOSINOPHILS 2.4 % (0-7); HEMATOCRIT 38.2 % (42.0-54.0); HEMOGLOBIN 12.1 g/dL (13.5-17.5); IMMATURE GRANULOCYTES 0.3 % (0-5); LYMPHOCYTES 33.5 % (15-50); MCH 26.9 pg (26.0-34.0); MCHC 31.7 g/dL (31.0-37.0); MCV 84.9 fL (80.0-100.0); MEAN PLATELET VOLUME 10.6 fL (7.4-10.4); MONOCYTES 10.5 % (2-11); PLATELET COUNT 242 10x3/uL (130-400); RDW 15.8 % (11.5-14.5); WBC 6.2 10x3/uL (4.8-10.8)
[2019-03-17 20:05] LABS: APTT 41.8 SECONDS (22.8-39.4); INR 1.04 (0.85-1.17); PROTIME 13.1 SECONDS (11.6-15.0)
[2019-03-17 20:07] LABS: CALC OSMOLALITY 283 mosm/kg (275-300); CALCIUM 8.5 mg/dL (8.5-10.1); CARBON DIOXIDE 31.1 mmol/L (21.0-32.0); CHLORIDE - SERUM 103 mmol/L (98-107); CREATININE - SERUM 1.1 mg/dL (0.6-1.3); GLUCOSE 122 mg/dL (74-106); POTASSIUM - SERUM 4.3 mmol/L (3.5-5.1); SODIUM 142 mmol/L (136-145); UREA NITROGEN 13 mg/dL (7-18); eGFR NON AFRICAN AMERICAN 71 mL/min (90-120)
[2019-03-17 20:25] LABS: ALBUMIN 3.7 g/dL (3.4-5.0); ALKALINE PHOSPHATASE 103 U/L (46-116); ALT (SGPT) 25 U/L (10-68); BILIRUBIN - TOTAL 0.13 mg/dL (0.2-1.3); CKMB 0.9 U/L (0.0-3.6); CREATINE KINASE 96 UL (21-232); MAGNESIUM - SERUM 2.1 mg/dL (1.8-2.4); PROTEIN - SERUM 6.6 g/dL (6.4-8.2); TROPONIN-I < 0.017 ng/mL (0.000-0.060)
[2019-03-17] MEDS ORDERED: LISINOPRIL10 MG PO (22:42)
[2019-03-17] MEDS ORDERED: TEGRETOL XR200 M1 PO (22:50)
[2019-03-17 22:57] VITALS: BP 147/77; BMI 28.9
--- NOTE | 2019-03-18 00:22 | NUR ---
PATIENT APPEARS TO BE SLEEPING. RESPIRATIONS ARE EVEN AND UNLABORED. NO S/S OF DISTRESS. CALL LIGHT WITHIN REACH. WILL CPOC.
--- NOTE | 2019-03-18 03:44 | NUR ---
PATIENT APPEARS TO BE SLEEPING. RESPIRATIONS ARE EVEN AND UNLABORED. NO S/S OF DISTRESS. CALL LIGHT WITHIN REACH. WILL CPOC.
[2019-03-18 04:00] VITALS: BP 113/48
[2019-03-18 07:40] LABS: BASOPHILS 0.4 % (0-2); EOSINOPHILS 3.7 % (0-7); HEMATOCRIT 37.5 % (42.0-54.0); HEMOGLOBIN 11.9 g/dL (13.5-17.5); IMMATURE GRANULOCYTES 0.2 % (0-5); LYMPHOCYTES 33.5 % (15-50); MCH 26.9 pg (26.0-34.0); MCHC 31.7 g/dL (31.0-37.0); MCV 84.8 fL (80.0-100.0); MEAN PLATELET VOLUME 10.1 fL (7.4-10.4); MONOCYTES 9.2 % (2-11); PLATELET COUNT 231 10x3/uL (130-400); RBC 4.42 10x6/uL (4.20-6.10); RDW 15.9 % (11.5-14.5); WBC 5.7 10x3/uL (4.8-10.8)
[2019-03-18 07:56] LABS: CALCIUM 8.6 mg/dL (8.5-10.1); CARBON DIOXIDE 29.4 mmol/L (21.0-32.0); CHLORIDE - SERUM 105 mmol/L (98-107); GLUCOSE 116 mg/dL (74-106); POTASSIUM - SERUM 4.2 mmol/L (3.5-5.1); SODIUM 142 mmol/L (136-145); eGFR NON AFRICAN AMERICAN 79 mL/min (90-120)
[2019-03-18 07:57] LABS: CALC OSMOLALITY 285 mosm/kg (275-300); TROPONIN-I < 0.017 ng/mL (0.000-0.060); UREA NITROGEN 17 mg/dL (7-18)
[2019-03-18 08:02] VITALS: Ht 160 cm; Wt 74.1 kg
[2019-03-18 08:17] VITALS: BP 123/66
[2019-03-18 08:53] LABS: CHOL - HDL RATIO 4.3 ratio (2.3-4.9); LDL-HDL RATIO 1.7 ratio (1.5-3.5)
--- NOTE | 2019-03-18 09:32 | NUR ---
TELEMETRY SR. CONSENTS SIGNED FOR [facility]. WILL CONT. PLAN OF CARE.
[2019-03-18 12:00] VITALS: BP 113/56
--- NOTE | 2019-03-18 12:44 | NUR ---
PRE-OPS GIVEN. TO CONTINUOUS PICKLING LINE PICKLER BY BED.
--- NOTE | 2019-03-18 12:45 | NUR ---
PRE-OPS GIVEN. TO WATER TAXI DRIVER BY BED.
[2019-03-18 14:48] VITALS: BP 119/65
--- NOTE | 2019-03-18 15:32 | NUR ---
BED REST UP. GROIN STABLE.
--- NOTE | 2019-03-18 17:06 | NUR ---
IV AND TELEMETRY DCD. DC PLANS GIVEN. UNDERSTANDING VOICED. ESCORTED TO CAR BY W/C.
--- NOTE | 2019-03-19 10:02 | OP ---
PATIENT NAME: SILVA SEPULVEDA MEDICAL RECORD: [id number] :52 LOCATION:D.M2 D.2114 ADMISSION DATE:03/17/19 SURGEON: GURDEEP ESTEBAN MD DATE OF OPERATION: 03/18/2019 PROCEDURE: Left heart catheterization, selective coronary angiography, right femoral artery approach. CATHETERS: A 5-Sami sheath, 5/4 left and right Bridget, 5/4 pig. The procedure was well tolerated. The patient was returned to walker. Sheath was removed. ExoSeal device placed FINDINGS: Left ventriculography in 30-degree ARREDONDO view: Normal wall motion, normal systolic function. CORONARY ANATOMY: LEFT MAIN: Left main is free of disease. LAD: Free of disease in the diagonal system. CIRCUMFLEX: Free of disease in the marginal system. RIGHT CORONARY ARTERY: Dominant artery, gives rise to PDA, free of disease. IMPRESSION: Normal LV systolic function. Normal coronary anatomy. TRANSINT:[id number] Voice Confirmation ID: [id number] DOCUMENT ID: [id number] GURDEEP ESTEBAN MD at 1002 CC: [id number] DICTATION DATE: 03/18/19 1327 FLIGHT OPERATIONS COORDINATOR: 03/18/19 2316 DIS IN 03/18/19 [place] [place] [address]
--- NOTE | 2019-03-19 10:02 | CN ---
PATIENT NAME:SILVA SEPULVEDA MEDICAL RECORD: [id number] : 52 LOCATION:D. D.2114 ADMIT DATE: 03/17/19 ACCOUNT: [id number] CONSULTING PHYSICIAN: GURDEEP ESTEBAN MD REFERRING PHYSICIAN: KASHIF WATERMAN MD DATE OF CONSULTATION: 03/18/2019 HISTORY OF PRESENT ILLNESS: A 69-year-old gentleman with a known history of coronary artery disease as well as peripheral vascular disease, status post intervention LAD most recently as well as intervention of subclavian stenosis, last 2-3 weeks, rapidly progressive angina, onset of rest symptomology, chest heaviness, pressure. Continues to have rest symptomology overnight despite medical therapy. We are asked to see him concerning his cardiovascular status. PAST MEDICAL HISTORY: Includes: 1. History of hypertension. 2. Peripheral vascular disease as described above. 3. Dyslipidemia. 4. Diabetes mellitus. MEDICATIONS: Include insulin 16 units at bedtime, prednisone 1 mg p.o. every day, Singulair 10 mg p.o. every day, Lasix 80 mg p.o. every day, Tegretol 200 b.i.d., Lyrica 50 b.i.d., Neurontin 600 b.i.d., lisinopril 10 b.i.d., carvedilol 6.25 every day, atorvastatin 10 every day, Plavix 75 every day. ALLERGIES: INCLUDE OPIOIDS, SHELLFISH, AND ASPIRIN. SOCIAL HISTORY: Nonsmoker, nondrinker. He is able to take care of all his ADLs. Does not exercise frequently due to neuropathy. REVIEW OF SYSTEMS: The patient reports easy bruising but reports no swollen glands. The patient reports no fever, no night sweats, no significant weight gain, no significant weight loss. No significant exercise tolerance. The patient reports no dry eyes, no irritation, no vision change. Patient reports no difficulty hearing and no ear pain. Patient reports no frequent nose bleeds or nose and sinus problems. Patient reports on arm pain on exertion. No shortness of breath while lying down. No history of heart murmur. Patient reports no cough, no wheezing or coughing up blood. Patient reports no abdominal pain, no vomiting. Normal appetite. No diarrhea and not vomiting blood. No nausea and no constipation. Patient reports no incontinence. No difficulty urinating. No hematuria. No increased frequency. Patient reports no muscle aches. No weakness, no arthralgias, no back pain. No swelling of the extremities. Patient reports no abnormal mole, no jaundice, no rashes. Reports no loss of consciousness. No weakness and no numbness. No seizures, dizziness, or headaches. The patient reports no depression, no sleep disturbance, feeling safe in a relationship and no alcohol abuse. Patient reports on fatigue. Reports no runny nose or sinus pressure. No itching, no hives, and no frequent sneezing. PHYSICAL EXAMINATION: GENERAL: Pleasant gentleman, in no acute distress, appears stated age. VITAL SIGNS: Blood pressure 123/66, pulse 73 and regular. HEENT: Normocephalic, atraumatic. NECK: No bruits noted. HEART: Regular. Questionable S4 gallop. CONSULT REPORT [id number] SILVA SEPULVEDA LUNGS: Good air excursion. ABDOMEN: Soft, nontender. EXTREMITIES: Pulse 2+. No edema. DIAGNOSTIC DATA: ECG shows nonspecific ST-T changes. IMPRESSION: Acute coronary syndrome, class IV angina, multiple risk factors. PLAN: For angiography, intervention based on above. TRANSINT:[id number] Voice Confirmation ID: [id number] DOCUMENT ID: [id number] GURDEEP ESTEBAN MD at 1002 CC: [id number] DICTATION DATE: 03/18/19841 REFUELING RAMPMAN: 03/18/19 1131 DIS IN 03/18/[address] [facility] [address] [place] [address]
--- NOTE | 2019-03-20 09:01 | MORECARE ---
CASE MANAGEMENT DISCHARGE SUMMARY PATIENT: SILVA SEPULVEDA UNIT: [id number] ADM DATE: 03/17/19 AGE: 69 : 51 SEX: M ROOM/BED: D.2114 AUTHOR: RADHA WELLER PHYSICIAN: REFERRING PHYSICIAN: KASHIF WATERMAN MD DATE OF SERVICE: 03/20/19 Discharge Plan Patient Name: SILVA SEPULVEDA Facility: [facility]:[place] : 1950 Planned Disposition: Home Anticipated Discharge Date: 03/18/19 Discharge Date: 03/18/2019 Expected LOS: 1 Initial Reviewer: [email or web address] Initial Review Date: 03/20/2019 Generated: 03/20/19 10:01 am Patient Name: SILVA SEPULVEDA Page 18119 at 0901 All edits/amendments must be made on the electronic document DICTATION DATE: 03/20/19900 YARN SORTER: DM 03/20/19900 RPT#: [id number] DC DATE:03/18/19 STATUS: DIS IN [facility] [address] [place] [address] END OF REPORT
== END 2019-03-18 17:07 | disposition home or self-care (01) ==
LOC: D.ER 18:48 → OBSVTIME 21:38 → D.M2 21:38
PROVIDERS: Family Medicine; Internal Medicine Interventional Cardiology; ADMIT Family Medicine; ATTEND Family Medicine
DX: I24.9 Acute ischemic heart disease, unspecified (principal); R07.9 Chest pain, unspecified; I10 Essential (primary) hypertension; E11.9 Type 2 diabetes mellitus without complications

== ENCOUNTER 2019-05-14 09:58 | Inpatient (IN) | payer MEDICARE ==
[~2019-05-14] VITALS: Ht 160 cm; Wt 72.7 kg
[2019-05-14] VITALS (16 sets, daily range): BP systolic 84–149; BP diastolic 37–78; BMI 29.4
--- NOTE | 2019-05-14 10:15 | NUR ---
CALLED TO ROOM BY USER INTERFACE ARTIST, PT UNRESPONSIVE TO VERBAL STIMULI AND PALE. USER INTERFACE ARTIST REPORTS SHE WAS ATTEMPTING TO DRAAW BLOOD AND PTS EYE ROLLED BACK AND HE BECAME UNRESPONSIVE. PT AROUSEABLE TO TACTILE STIMULATION, SKIN W/D/PALE. VSS. HR 67 SR. NOTICED NEW ONSET LEFT FACIAL DROOP, SLURRED SPEECH AND LEFT ARM WEAKNESS.
--- NOTE | 2019-05-14 10:20 | NUR ---
DR SANTOYO AT
--- NOTE | 2019-05-14 10:28 | NUR ---
TO CT VIA STRETCHER WITH RN AND CM
[2019-05-14 10:31] LABS: BASOPHILS 0.5 % (0-2); EOSINOPHILS 1.2 % (0-7); HEMATOCRIT 41.2 % (42.0-54.0); HEMOGLOBIN 13.1 g/dL (13.5-17.5); IMMATURE GRANULOCYTES 0.3 % (0-5); LYMPHOCYTES 18.9 % (15-50); MCH 26.8 pg (26.0-34.0); MCHC 31.8 g/dL (31.0-37.0); MCV 84.4 fL (80.0-100.0); MEAN PLATELET VOLUME 10.3 fL (7.4-10.4); MONOCYTES 6.3 % (2-11); NEUTROPHILS 72.8 % (40-80); RBC 4.88 10x6/uL (4.20-6.10); RDW 15.8 % (11.5-14.5); WBC 10.6 10x3/uL (4.8-10.8)
[2019-05-14 10:33] LABS: PLATELET COUNT 310 10x3/uL (130-400)
[2019-05-14 10:43] LABS: CALC OSMOLALITY 283 mosm/kg (275-300); CALCIUM 9.4 mg/dL (8.5-10.1); CARBON DIOXIDE 32.5 mmol/L (21.0-32.0); CHLORIDE - SERUM 103 mmol/L (98-107); CREATININE - SERUM 1.2 mg/dL (0.6-1.3); GLUCOSE 125 mg/dL (74-106); SODIUM 139 mmol/L (136-145); UREA NITROGEN 26 mg/dL (7-18); eGFR NON AFRICAN AMERICAN 64 mL/min (90-120)
[2019-05-14 10:59] LABS: ALBUMIN 3.6 g/dL (3.4-5.0); ALKALINE PHOSPHATASE 106 U/L (30-120); ALT (SGPT) 26 U/L (10-68); AMYLASE - SERUM 100 U/L (25-115); CKMB 2.5 U/L (0.0-3.6); CREATINE KINASE 86 UL (21-232); LIPASE 178 U/L (73-393); MAGNESIUM - SERUM 2.3 mg/dL (1.8-2.4); PROTEIN - SERUM 7.9 g/dL (6.4-8.2)
[2019-05-14 11:00] LABS: POTASSIUM - SERUM 5.4 mmol/L (3.5-5.1); TROPONIN-I < 0.017 ng/mL (0.000-0.060)
--- NOTE | 2019-05-14 11:00 | NUR ---
GUAIC STOOL NEGATIVE
[2019-05-14 11:15] LABS: PROTIME 13.2 SECONDS (11.6-15.0)
--- NOTE | 2019-05-14 11:15 | NUR ---
DR PENA ON VIDEO CONFERENCE. NIHSS COMPLETED SSCORE OF 10. DR SANTOYO AT BS. TPA DISCUSSED AND EXPL TO PT, PT VERB UNDER AND CONSENT SIGNED AND WITNESSED. TPA INITIATED @ 1123. VSS.
[2019-05-14 11:16] LABS: APTT 40.3 SECONDS (22.8-39.4)
--- NOTE | 2019-05-14 12:00 | NUR ---
BP LOW 89/47 (64). NOTIFIED
--- NOTE | 2019-05-14 12:25 | NUR ---
TPA COMPLETED @ 1225 NS INFUSING TO CLEAR TPA LINE
--- NOTE | 2019-05-14 12:33 | NUR ---
SLEEPING WITH SNORING RESP. AROUSES EASILY WHEN NAME CALLED. VSS
--- NOTE | 2019-05-14 16:12 | NUR ---
SLEEPING AROUSES EASILY NO C/O. VSS
--- NOTE | 2019-05-14 17:01 | NUR ---
PT RESTING IN BED. SPEECH CLEAR. OLEA INDEPENDENTLY. LEFT ARM MECHANICAL DOOR REPAIRER STRONG AND NO DRIFT. "I FEEL MUCH BETTER. MY STOMACH PAIN IS EVEN GONE"
--- NOTE | 2019-05-14 19:16 | NUR ---
BS REPORT TO BIRGIT FISHER
--- NOTE | 2019-05-14 21:00 | NUR ---
ASSESSMENT DONE SEE FLOW SHEET VSS
--- NOTE | 2019-05-14 21:36 | NUR ---
DR WATERMAN INFORMED OF PT STATUS. ORDER TO GIVE PO MEDS GIVEN WITH SIPS OF WATER. ORDER TO DC REGLAN. WILL CONTINUE POC.
--- NOTE | 2019-05-14 21:50 | NUR ---
MEDS GIVEN PER MAR. WILL CONTINUE TO MONITOR.
--- NOTE | 2019-05-14 22:53 | NUR ---
REASSESSMENT DONE SEE FLOW SHEET VSS WILL CONTINUE POC
[2019-05-15] VITALS (30 sets, daily range): BP systolic 78–122; BP diastolic 24–73; BMI 29.4
--- NOTE | 2019-05-15 | NUR ---
EYES CLOSED, RESP EVEN AND UNLABORED. SR ON THE MONITOR.
--- NOTE | 2019-05-15 02:00 | NUR ---
NO CHANGES AT THIS TIME. WILL CONT TO MONITOR.
--- NOTE | 2019-05-15 04:00 | NUR ---
SR ON THE MONITOR.
--- NOTE | 2019-05-15 05:37 | NUR ---
NO CHANGES AT THIS TIME. WILL CONT TO MONITOR.
[2019-05-15 06:09] LABS: BASOPHILS 0.3 % (0-2); EOSINOPHILS 0.4 % (0-7); HEMATOCRIT 38.9 % (42.0-54.0); HEMOGLOBIN 12.2 g/dL (13.5-17.5); IMMATURE GRANULOCYTES 0.3 % (0-5); LYMPHOCYTES 17.1 % (15-50); MCH 26.3 pg (26.0-34.0); MCHC 31.4 g/dL (31.0-37.0); MEAN PLATELET VOLUME 10.5 fL (7.4-10.4); MONOCYTES 12.1 % (2-11); NEUTROPHILS 69.8 % (40-80); PLATELET COUNT 311 10x3/uL (130-400); RBC 4.63 10x6/uL (4.20-6.10); RDW 16.3 % (11.5-14.5); WBC 11.9 10x3/uL (4.8-10.8)
--- NOTE | 2019-05-15 06:25 | NUR ---
PT SLEEPING. VSS.
[2019-05-15 06:35] LABS: ANION GAP 14.4 mmol/L (8-16); CALCIUM 8.4 mg/dL (8.5-10.1); CARBON DIOXIDE 28.6 mmol/L (21.0-32.0)
[2019-05-15 06:51] LABS: CREATININE - SERUM 3.8 mg/dL (0.6-1.3)
--- NOTE | 2019-05-15 11:40 | NUR ---
NG TUBE TO L NARE. PLACEMENT VERIFIED BY AUSCULTATION. ATTACHED TO LIS. RETURN OF 650ML BROWN FECAL SMELLING OP. PT REPORTS FEELING SOME RELIEF OF ABD PAIN/PRESSURE.
--- NOTE | 2019-05-15 19:15 | NUR ---
REPORT RECEIEVED. PT RESTING IN BED, NO ACUTE DISTRESS NOTED. ASSESSMENT COMPLETED, SEE FLOWSHEET. RT AC PIV X2 INFUSING, SEE IV FLOWSHEET. NGT TO SUCTION, BROWN DRAINAGE. WILL CONTINUE TO MONITOR.
--- NOTE | 2019-05-15 21:00 | NUR ---
PT RESTING IN BED, NO COMPLAINTS OF ABDOMINAL PAIN. WILL CONTINUE TO MONITOR.
--- NOTE | 2019-05-15 23:00 | NUR ---
PT RESTING IN BED, ALERT AND ORIENTED. MILD DISCOMFORT REPORTED IN ABDOMEN, WILL CONTINUE TO MONITOR.
[2019-05-16] VITALS (31 sets, daily range): BP systolic 90–157; BP diastolic 50–100; Ht 160 cm; Wt 72.7 kg
--- NOTE | 2019-05-16 01:00 | NUR ---
WITNESSED PT PASS VERY SMALL AMOUNT OF GAS, WELL URINATE IN URINAL. NO DIFFICULTY URINATING. WILL CONTINUE TO MONITOR
[2019-05-16 02:19] LABS: BILIRUBIN NEGATIVE (NEGATIVE); GLUCOSE NEGATIVE (NEGATIVE); KETONE NEGATIVE (NEGATIVE); NITRITE NEGATIVE (NEGATIVE); SPECIFIC GRAVITY 1.015 (1.005-1.020); UROBILINOGEN NORMAL (NORMAL)
[2019-05-16 02:21] LABS: BACTERIA FEW /hpf (NEGATIVE); EPITHELIAL CELLS 0-5 /hpf (0-5); RED CELLS - URINE NONE SEEN /hpf (0-5); WHITE CELLS - URINE 0-5 /hpf (NEGATIVE)
--- NOTE | 2019-05-16 03:00 | NUR ---
PT RESTING IN BED, NO ACUTE DISTRESS NOTED. WILL CONTINUE TO MONITOR.
--- NOTE | 2019-05-16 04:32 | NUR ---
PT ASSISTED TO BEDSIDE COMMODE. MODERATE AMOUNT OF HARD, FORMED STOOL PASSED. PT ABLE TO URINATE MODERATE AMOUNT. WILL CONTINUE TO MONITOR.
--- NOTE | 2019-05-16 05:13 | NUR ---
PT HAD VERY LARGE, LOOSE STOOL ON BEDSIDE COMMODE. PT REPORTS FEELING "MUCH BETTER." WILL CONTINUE TO MONITOR.
[2019-05-16 06:16] LABS: BASOPHILS 0.2 % (0-2); EOSINOPHILS 0.3 % (0-7); HEMATOCRIT 36.8 % (42.0-54.0); HEMOGLOBIN 11.4 g/dL (13.5-17.5); IMMATURE GRANULOCYTES 0.4 % (0-5); LYMPHOCYTES 11.4 % (15-50); MCH 26.2 pg (26.0-34.0); MCV 84.6 fL (80.0-100.0); MEAN PLATELET VOLUME 10.4 fL (7.4-10.4); MONOCYTES 10.7 % (2-11); PLATELET COUNT 296 10x3/uL (130-400); RBC 4.35 10x6/uL (4.20-6.10); RDW 16.2 % (11.5-14.5); WBC 12.1 10x3/uL (4.8-10.8)
[2019-05-16 06:25] LABS: CALCIUM 8.3 mg/dL (8.5-10.1); CREATININE - SERUM 4.3 mg/dL (0.6-1.3)
--- NOTE | 2019-05-16 10:19 | NUR ---
Nutrition Follow-up: NPO. NGT. Noted pt had large BM this AM. Diet: NPO Wt: 166# (05/15) Labs noted: Na 149, Glu 144, Ca 8.3 Meds noted: D5NS @ 75 -Rec ADAT when medically feasible. If unable to advance diet within next 24 hrs or so, may consider nutrition support. -Monitor wt. -RD following.
[2019-05-16 17:03] LABS: ERYTHROCYTE SEDIMENTATION RATE 27 mm/hr (0-20)
--- NOTE | 2019-05-16 19:20 | NUR ---
REC'D PT RESTING ON ROOM AIR WATCHING TV, AWAKE, ALERT, AND ORIENTED X 3, BILAT LAUNDRY AGENT WITH LEFT WEAKER THAN RIGHT, LEFT SIDED FACIAL DROOP NOTED, SPEECH IS CLEAR AND TONGUE MIDLINE, LOWER EXT'S WITH LEFT WEAKER THAN RIGHT, PT MOVING SELF INDEPENDENTLY IN BED, RIGHT A/C PIV'S X 2, ONE SALINE LOCKED, D5W @ 100CC/HR TO THE OTHER, IV SITES WITHOUT REDNESS OR EDEMA, PT DENIES PAIN OR OTHER NEEDS, BED IN LOW POSITION, CALL LIGHT IN REACH.
--- NOTE | 2019-05-16 20:50 | NUR ---
PT REPOSITIONED UP IN BED TO SIT AT 90 DEGREES, PO MEDICATIONS REVIEWED WITH PATIENT AND GIVEN WITHOUT DIFFICULTY, PT CLEARING SECRETIONS WITH YANKEUR, DENIES FURTHER NEEDS, WILL CONT TO MONITOR FOR CHANGES.
--- NOTE | 2019-05-16 23:00 | NUR ---
REASSESSMENT COMPLETED, PT CONTINUES WITH LEFT SIDED WEAKNESS, DENIES PAIN OR OTHER NEEDS, WILL MONITOR CLOSELY FOR CHANGES.
[2019-05-17] VITALS (24 sets, daily range): BP systolic 90–140; BP diastolic 35–87
--- NOTE | 2019-05-17 01:00 | NUR ---
NO CHANGES IN STATUS AT THIS TIME.
--- NOTE | 2019-05-17 03:05 | NUR ---
REASSESSMENT COMPLETED, NO CHANGES FROM PREVIOUS ASSESSMENT, LEFT SIDED WEAKNESS CONTINUES, PT IS SLIGHTLY DELAYED WHEN ANSWERING ORIENTATION QUESTIONS BUT REMAINS ORIENTED, VSS, WILL CONT TO MONITOR FOR CHANGES.
--- NOTE | 2019-05-17 05:05 | NUR ---
IV TUBING CHANGED AND DATED PER PROTOCOL.
[2019-05-17 05:56] LABS: BASOPHILS 0.2 % (0-2); EOSINOPHILS 1.2 % (0-7); HEMATOCRIT 33.2 % (42.0-54.0); HEMOGLOBIN 10.3 g/dL (13.5-17.5); IMMATURE GRANULOCYTES 0.3 % (0-5); MCH 26.2 pg (26.0-34.0); MCV 84.5 fL (80.0-100.0); MEAN PLATELET VOLUME 10.2 fL (7.4-10.4); NEUTROPHILS 70.3 % (40-80); PLATELET COUNT 263 10x3/uL (130-400); RBC 3.93 10x6/uL (4.20-6.10); RDW 16.1 % (11.5-14.5); WBC 9.9 10x3/uL (4.8-10.8)
[2019-05-17 06:16] LABS: ANION GAP 11.3 mmol/L (8-16); CALCIUM 8.2 mg/dL (8.5-10.1); CARBON DIOXIDE 29.5 mmol/L (21.0-32.0); CREATININE - SERUM 3.4 mg/dL (0.6-1.3); POTASSIUM - SERUM 3.8 mmol/L (3.5-5.1)
[2019-05-17 09:08] LABS: BILIRUBIN NEGATIVE (NEGATIVE); GLUCOSE NEGATIVE (NEGATIVE); KETONE NEGATIVE (NEGATIVE); NITRITE NEGATIVE (NEGATIVE); UROBILINOGEN NORMAL (NORMAL)
[2019-05-17 09:17] LABS: CREATININE - URINE 152.3 mg/dL (30-125); PRO/CRE RATIO URINE 0.4 mg/g; PROTEIN - URINE 66.5 mg/dL (0.0-11.9)
[2019-05-17 09:20] LABS: AMORPHOUS SEDIMENT <1+ /lpf (NONE SEEN); BACTERIA FEW /hpf (NEGATIVE); EPITHELIAL CELLS NSEEN /hpf (0-5); RED CELLS - URINE NONE SEEN /hpf (0-5); WHITE CELLS - URINE 0-5 /hpf (NEGATIVE)
--- NOTE | 2019-05-17 15:01 | NUR ---
0800-URINE SAMPLE SENT FOR LAB ORDERED-PT VOIDED WITH URINAL 1030-DR WATERMAN AT BEDSIDE -ORDER RECIEVED AND NOTED 1230-ASSISTED TO BEDSIDE COMMODE-REQUIRED ASSIST TIMES 2 STAFF 1245-COMPLETE AM CARE AND ASSISTED TO BEDSIDE CHAIR-RENAL SERVICES AT BEDSIDE 1445-AMBULATED WITH PHYSICAL THERAPY-DR MOHAN AT BEDSIDE-SPOKE WITH PT 1500-ASSISTED TO BED NOTED IMPROVED BALANCE
--- NOTE | 2019-05-17 18:46 | MORECARE ---
CASE MANAGEMENT DISCHARGE SUMMARY PATIENT: SILVA SEPULVEDA UNIT: [id number] ADM DATE: 05/14/19 AGE: 69 : 51 SEX: M ROOM/BED: [facility] AUTHOR: RADHA WELLER PHYSICIAN: REFERRING PHYSICIAN: KASHIF WATERMAN MD DATE OF SERVICE: 05/17/19 Discharge Plan Patient Name: SILVA SEPULVEDA Facility: [facility]:[place] : 1950 Planned Disposition: Home with Home Health Anticipated Discharge Date: Discharge Date: Expected LOS: Initial Reviewer: [email or web address] Initial Review Date: 05/17/2019 Generated: 05/17/19 7:46 pm Patient Name: SILVA SEPULVEDA Page 64043 at 1846 All edits/amendments must be made on the electronic document DICTATION DATE: 05/17/191845 TRUCK RENTAL CLERK: BERNICE 05/17/191845 RPT#: [id number] DC DATE: STATUS: ADM IN [facility] [address] [place] [address] END OF REPORT
--- NOTE | 2019-05-17 18:53 | MORECARE ---
CASE MANAGEMENT DISCHARGE SUMMARY PATIENT: SILVA SEPULVEDA UNIT: [id number] ADM DATE: 05/14/19 AGE: 69 : 51 SEX: M [facility] AUTHOR: NITHIN,DOC PHYSICIAN: REFERRING PHYSICIAN: KASHIF WATERMAN MD DATE OF SERVICE: 05/17/19 Discharge Plan Patient Name: SILVA SEPULVEDA Facility: [facility]:[place] : 1950 Planned Disposition: Home with Home Health Anticipated Discharge Date: Discharge Date: Expected LOS: Initial Reviewer: [email or web address] Initial Review Date: 05/17/2019 Generated: 05/17/19 7:53 pm Comments DCP- Discharge Planning Updated by [id number]: Liliana Mcnulty on 05/17/19 5:[address] Patient Name: SILVA SEPULVEDA Admission Status: ER Accout number: [id number] Admission Date: 05-14-2019 : 1950 Admission Diagnosis: Attending: KASHIF WATERMAN Current LOS: 3 Anticipated DC Date: Planned Disposition: Home with Home Health Primary Insurance: [facility] MEDICARE SOLUTIONS Discharge Planning Comments: CM met with patient to complete initial dc planning assessment. CM educated patient on the CM role and verbal consent given by patient to complete assessment. CM verified patient's address, phone number, and emergency contact phone numbers. Patient lives at home alone. At discharge patient plans to return home and feels that this is a safe discharge. CM discussed availability of home health, rehab services, and medical equipment. Patient has home health with [facility] and plans to resume care upon discharge. CANDELARIA signed. Patient may require walk test for 02 if needed upon discharge. CM will continue to follow and will assist as needed with dc plans/needs. Nailing Machine Operator Automatic: Liliana Mcnulty DCPIA - Discharge Planning Initial Assessment Updated by [email or web address]: Liliana Mcnulty on 05/17/19 6:48 pm * Is the patient Alert and Oriented? Yes * How many steps to enter\exit or inside your home? * PCP Javon * [facility] * Preadmission Environment Home Alone * ADLs Independent * Other Equipment cane, walker, power chair, CPAP - doesn't use * List name and contact numbers for known caregivers / representatives who currently or will assist patient after discharge: Duke Barillas - friend - [phone] Judge Torrez - friend - [phone] * Verbal permission to speak to the caregivers and representatives has been obtained from the patient. Yes * Community resources currently utilized Home Health * Please name any agencies selected above. [facility] * Additional services required to return to the preadmission environment? Yes * Can the patient safely return to the preadmission environment? No * Has this patient been hospitalized within the prior 30 days at any hospital? Yes Last DP export: 05/17/19 5:46 p Patient Name: SILVA SEPULVEDA Page 76775 at 1853 All edits/amendments must be made on the electronic document DICTATION DATE: 05/17/191852 WATER SUPPLY ENGINEER: BERNICE 05/17/191852 RPT#: [id number] DC DATE: STATUS: ADM IN [facility] [address] [place] [address] END OF REPORT
--- NOTE | 2019-05-17 19:40 | NUR ---
REPORT REC'D AND CARE ASSUMED, REC'D PT SITTING UP IN CHAIR AT BS, STATES " I AM FEELING A LITTLE NAUSEATED I THINK I NEED TO GO BACK TO BED", PT ON ROOM AIR, CM-SR, RIGHT A/C PIV WITH NS @ 100CC/HR AND RIGHT A/C PIV SALINE LOCKED, ABD DISTENDED, SOFT, BS HYPOACTIVE, LEFT WHEEL ALIGNMENT MECHANIC WEAKER THAN RIGHT, ASSISTED PT X 1 BACK TO BED WITHOUT DIFFICULTY, SCDS CONNECTED TO MACHINE AND TURNED ON, SR UP X 2, BED IN LOW POSITION, CALL LIGHT IN REACH.
--- NOTE | 2019-05-17 20:40 | NUR ---
EVENING MEDS GIVEN ORDERED, PT DENIES FURTHER NAUSEA OR OTHER NEEDS, SR UP X 2, BED IN LOW POSITION, CALL LIGHT IN REACH.
--- NOTE | 2019-05-17 23:07 | NUR ---
REASSESSMENT COMPLETED, PT RESTING ON RIGHT SIDE EYES CLOSED, RESP EVEN AND UNLABORED, BP DECREASED PT EASILY AWAKENS, BP RETAKEN, PT DENIES PAIN OR OTHER NEEDS.
[2019-05-18] VITALS (15 sets, daily range): BP systolic 82–135; BP diastolic 25–80
--- NOTE | 2019-05-18 01:20 | NUR ---
PT ASSISTED UP X 1 ASSIST TO BSC, CALL LIGHT IN REACH.
--- NOTE | 2019-05-18 01:35 | NUR ---
PERICARE AND LINEN CHANGE PROVIDED, LOOSE BROWN STOOL NOTED ON LINEN AND IN BSC MIXED WITH URINE, PT ASSISTED BACK TO BED AFTER PARTIAL BATH, PT REPOSITIONED SELF IN BED FOR COMFORT, DENIES FURTHER NEEDS, SR UP X 2, CALL LIGHT IN REACH
--- NOTE | 2019-05-18 03:00 | NUR ---
REASSESSMENT COMPLETED, NO CHANGES FROM PREVIOUS ASSESSMENT, PT RESTING IN BED EYE CLOSED, RESP EVEN AND UNLABORED, VSS.
--- NOTE | 2019-05-18 05:30 | NUR ---
LAB AT FOR AM LAB DRAW, FRESH ICE WATER PROVIDED ON REQUEST.
[2019-05-18 06:07] LABS: BASOPHILS 0.5 % (0-2); EOSINOPHILS 2.1 % (0-7); HEMATOCRIT 29.6 % (42.0-54.0); IMMATURE GRANULOCYTES 0.3 % (0-5); LYMPHOCYTES 22.9 % (15-50); MCH 25.6 pg (26.0-34.0); MCHC 30.4 g/dL (31.0-37.0); MCV 84.3 fL (80.0-100.0); MEAN PLATELET VOLUME 10.1 fL (7.4-10.4); MONOCYTES 11.3 % (2-11); NEUTROPHILS 62.9 % (40-80); PLATELET COUNT 226 10x3/uL (130-400); RBC 3.51 10x6/uL (4.20-6.10); RDW 15.8 % (11.5-14.5)
[2019-05-18 06:11] LABS: WBC 6.1 10x3/uL (4.8-10.8)
[2019-05-18 06:18] LABS: ANION GAP 12.6 mmol/L (8-16); CALCIUM 7.7 mg/dL (8.5-10.1); CARBON DIOXIDE 26.1 mmol/L (21.0-32.0); CREATININE - SERUM 2.2 mg/dL (0.6-1.3); POTASSIUM - SERUM 3.7 mmol/L (3.5-5.1)
--- NOTE | 2019-05-18 15:25 | NUR ---
0930-DR BHANDARI AT BEDSIDE-STATUS REPORT GIVEN-PT SPOKE WITH DR BHANDARI REGARDING PAST HISTORY 1230-ASSISTED TO BEDSDIE CHAIR EASILY DR MOHAN AT BEDSIDE-ORDERS RECIEVED AND NOTED 1340-AMBULATED WITH PHYSICAL THERAPY
--- NOTE | 2019-05-18 16:14 | NUR ---
CAROTID DOPPLER STUDY IN PROGRESS
--- NOTE | 2019-05-18 17:34 | NUR ---
ASSISTED TO BED TOLERATED WELL
--- NOTE | 2019-05-18 21:00 | NUR ---
RESTING WITH EYES CLOSED, EASILY ROUSED AND ALERT. ASSESSMENT COMPLETED PER FLOW SHEET WITH NO ACUTE DISTRESS OBSERVED. MONITORS CONNECTED TO PATIENT WITH ALARMS SET. VSS. CALL LIGHT IN REACH AND ABLE TO UTILIZE TO MAKE NEEDS KNOWN.
[2019-05-19 03:00] VITALS: BP 135/60
[2019-05-19 04:54] LABS: BASOPHILS 0.4 % (0-2); EOSINOPHILS 2.5 % (0-7); HEMATOCRIT 28.7 % (42.0-54.0); HEMOGLOBIN 8.9 g/dL (13.5-17.5); IMMATURE GRANULOCYTES 0.2 % (0-5); LYMPHOCYTES 25.9 % (15-50); MCH 25.6 pg (26.0-34.0); MCV 82.7 fL (80.0-100.0); MONOCYTES 9.8 % (2-11); NEUTROPHILS 61.2 % (40-80); PLATELET COUNT 245 10x3/uL (130-400); RBC 3.47 10x6/uL (4.20-6.10); RDW 15.6 % (11.5-14.5); WBC 5.2 10x3/uL (4.8-10.8)
[2019-05-19 05:03] LABS: ANION GAP 10.3 mmol/L (8-16); CALCIUM 7.7 mg/dL (8.5-10.1); POTASSIUM - SERUM 3.3 mmol/L (3.5-5.1)
[2019-05-19 05:14] LABS: CREATININE - SERUM 1.6 mg/dL (0.6-1.3)
--- NOTE | 2019-05-19 06:12 | NUR ---
PT TO ROOM 2215 VIA WHEELCHAIR ACCOMPANIED BY HOSPITAL STAFF. POSITIONED FOR COMFORT, DENIES ANY NEEDS AT THIS TIME. BED IN LOWEST POSITION, SR X1, CALL LIGHT WITHIN REACH. WILL CONTINUE TO MONITOR.
--- NOTE | 2019-05-19 07:10 | NUR ---
PT RESTING IN BED. NO SIGNS OF DISTRESS. IV TO LEFT UPPER ARM PATENT NO REDNESS OR TENDERNESS. DENIES ANY FURTHER NEED AT THIS TIME. CALL LIGHT IN REACH. BED LOW POSITION. NO FAMILY AT BEDSIDE AT THIS TIME.
--- NOTE | 2019-05-19 08:13 | NUR ---
LYING IN BED,WITHOUT DISTRESS.
[2019-05-19 08:40] VITALS: BP 125/67
[2019-05-19 12:12] VITALS: BP 122/80
[2019-05-19 16:01] VITALS: BP 159/73
[2019-05-19 17:08] LABS: SPE - ALPHA-1 GLOBULIN 0.4 g/dL (0.0-0.4); SPE - ALPHA-2 GLOBULIN 1.1 g/dL (0.4-1.0); SPE - GAMMA GLOBULIN 0.5 g/dL (0.4-1.8); SPE - M-SPIKE Not Observed g/dL (Not Observed); SPE - TOTAL PROTEIN 5.9 g/dL (6.0-8.5)
[2019-05-19 20:00] VITALS: BP 143/66
[2019-05-20] VITALS: BP 125/67
--- NOTE | 2019-05-20 01:29 | NUR ---
REC'D. AT CHGE OF SHIFT SITTING UP IN BED WITHER VISITOR AT BEDSIDE SERVICE DOG IN BED.DENIES ANY COMPLAINTS AT PRESENT TIME WILL CONTINUE TO MONITOR FOR ANY CHGES IN NEURO STATUS AND FOLLOW CURRENT PLAN OF CARE.
--- NOTE | 2019-05-20 02:31 | NUR ---
I have reviewed this patient and I concur with the Shift Assessment completed by the Licensed Practical Nurse today this shift.
[2019-05-20 04:00] VITALS: BP 148/70
--- NOTE | 2019-05-20 07:30 | NUR ---
ALERT AND ORIENTED. LUNGS CLEAR BILATERALLY. HEART SOUNDS S1 AND S2 HEARD IN ALL DAVILA. BOWEL SOUNDS ACTIVE X 4. SKIN INTACT WITHOUT REDNESS. IV TO ANTHONY PATENT WITHOUT REDNESS. DENIES PAIN. DENIES NEEDS. BED LOW. FALL PRECAUTIONS IN PLACE. CALL WILSON AND PERSONAL ITEMS IN REACH. WILL CONTINUE TO MONITOR.
[2019-05-20 09:07] LABS: ANION GAP 11.2 mmol/L (8-16); CALCIUM 7.7 mg/dL (8.5-10.1); CARBON DIOXIDE 26.5 mmol/L (21.0-32.0); CREATININE - SERUM 1.6 mg/dL (0.6-1.3); POTASSIUM - SERUM 3.7 mmol/L (3.5-5.1)
[2019-05-20 09:11] VITALS: BP 177/91
[2019-05-20 13:31] VITALS: BP 174/72
--- NOTE | 2019-05-20 17:09 | NUR ---
IV LEAKING TO ANTHONY. REMOVED WITH TIP INTACT. RESITED TO LEFT CHEST WITH TIP INTACT.
[2019-05-20 18:08] VITALS: BP 117/75
[2019-05-20 20:00] VITALS: BP 161/69
[2019-05-21] VITALS: BP 134/76
[2019-05-21 04:00] VITALS: BP 166/79
--- NOTE | 2019-05-21 04:12 | NUR ---
I have reviewed this patient and I concur with the Shift Assessment completed by the Licensed Practical Nurse today this shift.
--- NOTE | 2019-05-21 07:34 | NUR ---
ALERT AND ORIENTED. LUNGS CLEAR BILATERALLY. HEART SOUNDS S1 AND S2 HEARD IN ALL DAVILA. BOWEL SOUNDS ACTIVE X 4. SKIN INTACT WITHOUT REDNESS. IV TO LEFT CHEST PATENT WITHOUT REDNESS. DENIES PAIN. DENIES NEEDS. BED LOW. CALL WILSON AND PERSONAL ITEMS IN REACH. WILL CONTINUE TO MONITOR.
[2019-05-21 09:53] VITALS: BP 160/78
--- NOTE | 2019-05-21 09:57 | NUR ---
Rehab Prescreening Consult recieved and the chart has been reviewed. She is [facility] managed Medicare and will require a preauth for ARU. She will need an OT eval per their requirements. Kanchan Proctor RN Clinical Liaison, Rehab
--- NOTE | 2019-05-21 10:40 | NUR ---
NUTRITION F/U CHART REVIEWED, PT UP IN ROOM. 75 TO 100% INTAKE RECENT MEALS. REG DIET. WILL CONTINUE TO PROVIDE DIET, MONITOR PO INTAKE. RD FOLLOWING
[2019-05-21 13:11] VITALS: BP 127/70
[2019-05-21 17:02] VITALS: BP 132/75
[2019-05-21 20:00] VITALS: BP 149/71
[2019-05-22] VITALS: BP 150/73
--- NOTE | 2019-05-22 01:46 | NUR ---
REC'D. CHGE OF SHIFT WALKING ROUNDS.SITTING ON SIDE OF BED WATCHING TV.02 OFF DENIES ANY SOB AT PRESENT TIME STATES GETS SOB ON MINIMAL ACTIVITYWILL CONTINUE TO MONITOR AND FOLLOW CURRENT PLAN OF CARE
[2019-05-22 04:00] VITALS: BP 175/77
[2019-05-22 06:46] LABS: BASOPHILS 0.3 % (0-2); EOSINOPHILS 2.4 % (0-7); HEMATOCRIT 27.8 % (42.0-54.0); HEMOGLOBIN 8.7 g/dL (13.5-17.5); IMMATURE GRANULOCYTES 0.3 % (0-5); LYMPHOCYTES 25.6 % (15-50); MCH 25.6 pg (26.0-34.0); MCHC 31.3 g/dL (31.0-37.0); MCV 81.8 fL (80.0-100.0); MEAN PLATELET VOLUME 9.7 fL (7.4-10.4); MONOCYTES 9.3 % (2-11); NEUTROPHILS 62.1 % (40-80); PLATELET COUNT 275 10x3/uL (130-400); RDW 15.4 % (11.5-14.5); WBC 5.8 10x3/uL (4.8-10.8)
[2019-05-22 06:58] LABS: ANION GAP 10.8 mmol/L (8-16); CALCIUM 7.6 mg/dL (8.5-10.1); CARBON DIOXIDE 27.1 mmol/L (21.0-32.0); CREATININE - SERUM 1.3 mg/dL (0.6-1.3); POTASSIUM - SERUM 3.9 mmol/L (3.5-5.1)
--- NOTE | 2019-05-22 07:45 | NUR ---
ALERT AND ORIENTED. LUNGS CLEAR BILATERALLY. HEART SOUNDS S1 AND S2 HEARD IN ALL DAVILA. BOWEL SOUNDS ACTIVE X 4. SKIN INTACT WITHOUT REDNESS. IV TO LEFT CHEST PATENT WITHOUT REDNESS. DENIES PAIN. DENIES NEEDS. BED LOW. FALL PRECAUTIONS IN PLACE. CALL WILSON AND PERSONAL ITEMS IN REACH. WILL CONTINUE TO MONITOR.
--- NOTE | 2019-05-22 08:07 | NUR ---
I have reviewed this patient and I concur with the Shift Assessment completed by the Licensed Practical Nurse today this shift.
[2019-05-22 09:34] VITALS: BP 127/85
[2019-05-22 13:04] VITALS: BP 160/65
--- NOTE | 2019-05-22 13:22 | NUR ---
SITTING IN CHAIR AT BEDSIDE. DENIES NEEDS. WILL CONTINUE TO MONITOR.
--- NOTE | 2019-05-22 15:27 | MORECARE ---
CASE MANAGEMENT DISCHARGE SUMMARY PATIENT: SILVA SEPULVEDA UNIT: [id number] ADM DATE: 05/14/19 AGE: 69 : 51 SEX: M ROOM/BED: D.2215 AUTHOR: NITHIN,DOC PHYSICIAN: REFERRING PHYSICIAN: KASHIF WATERMAN MD DATE OF SERVICE: 05/22/19 Discharge Plan Patient Name: SILVA SEPULVEDA Facility: [facility]:[place] : 1950 Planned Disposition: Home with Home Health Anticipated Discharge Date: Discharge Date: Expected LOS: Initial Reviewer: [id number] Initial Review Date: 05/17/2019 Generated: 05/22/19 4:27 pm Comments DCP- Discharge Planning Updated by [id number]: Vivian Shook on 05/22/19 2:[address] Patient will be discharging home today, IMM served and explained. His friend will be his taxi cab driver home after he gets off work. He is current with [facility] and I will send them discharge paperwork. Patient has a nebulizer at home and is has been 98% on room air at the hospital. He also has a life alert necklace. Patient denies any other needs at this time. CM to follow and assist with dc planning. DCP- Discharge Planning Updated by [id number]: Liliana Mcnulty on 05/17/19 5:[address] Patient Name: SILVA SEPULVEDA Admission Status: ER Accout number: [id number] Admission Date: 05-14-2019 : 1950 Admission Diagnosis: Attending: KASHIF WATERMAN Current LOS: 3 Anticipated DC Date: Planned Disposition: Home with Home Health Primary Insurance: [facility] MEDICARE SOLUTIONS Discharge Planning Comments: CM met with patient to complete initial dc planning assessment. CM educated patient on the CM role and verbal consent given by patient to complete assessment. CM verified patient's address, phone number, and emergency contact phone numbers. Patient lives at home alone. At discharge patient plans to return home and feels that this is a safe discharge. CM discussed availability of home health, rehab services, and medical equipment. Patient has home health with [facility] and plans to resume care upon discharge. CANDELARIA signed. Patient may require walk test for 02 if needed upon discharge. CM will continue to follow and will assist as needed with dc plans/needs. Oil Speculator: Liliana Mcnulty DCPIA - Discharge Planning Initial Assessment Updated by [email or web address]: Liliana Mcnulty on 05/17/19 6:48 pm * Is the patient Alert and Oriented? Yes * How many steps to enter\exit or inside your home? * PCP Javon * Pharmacy [facility]. [facility] * Preadmission Environment Home Alone * ADLs Independent * Other Equipment cane, walker, power chair, CPAP - doesn't use * List name and contact numbers for known caregivers / representatives who currently or will assist patient after discharge: Duke champagne - [phone] Judge Lore champagne - [phone] * Verbal permission to speak to the caregivers and representatives has been obtained from the patient. Yes * Community resources currently utilized Home Health * Please name any agencies selected above. [facility] * Additional services required to return to the preadmission environment? Yes * Can the patient safely return to the preadmission environment? No * Has this patient been hospitalized within the prior 30 days at any hospital? Yes Coverage Notice Reviewer: [id number] Sukhdev Shook Notice Issued Date-Time: 05/22/2019 15:15 Notice Type: IM Discharge Notice Notice Delivered To: Patient Relationship to Patient: Svp Programmatic Tv Name: Delivery Method: HAND - Hand Delivered Princess Days: Prior Verbal Notification: Recipient Understood Notice: Yes Recipient Signature: Yes Med Rec Note Co-signed by Attending: Coverage Notice Comment: Last DP export: 05/17/19 5:53 p Patient Name: SILVA SEPULVEDA Page 66749 at 1527 All edits/amendments must be made on the electronic document DICTATION DATE: 05/22/19 1527 EYEGLASS ASSEMBLER: BERNICE 05/22/19 1527 RPT#: [id number] DC DATE: STATUS: ADM IN [facility] [address] [place] [address] END OF REPORT
--- NOTE | 2019-05-22 15:42 | NUR ---
OT NOTE: PT DOING WELL TODAY. ABLE TO PERFORM TOILETING WITH SBA/MOD I; AMB WITH CANE IN ROOM AND DOWN HALLWAY WITH SBA AND ASSIST WITH IV POLE. BED MOB WITHOUT ASSIST; ABLE TO DOE BRACE INDEPENDENTLY. REPORTS THAT HE FEELS BETTER TODAY. SRIKANTH PARRA,OTR/L [phone]
--- NOTE | 2019-05-22 15:47 | MORECARE ---
CASE MANAGEMENT DISCHARGE SUMMARY PATIENT: SILVA SEPULVEDA UNIT: [id number] ADM DATE: 05/14/19 AGE: 69 : 52 SEX: M ROOM/BED: D.2215 AUTHOR: NITHIN,DOC PHYSICIAN: REFERRING PHYSICIAN: KASHIF WATERMAN MD DATE OF SERVICE: 05/22/19 Discharge Plan Patient Name: SILVA SEPULVEDA Facility: [facility]:[place] : 1950 Planned Disposition: Home with Home Health Anticipated Discharge Date: Discharge Date: Expected LOS: Initial Reviewer: [email or web address] Initial Review Date: 05/17/2019 Generated: 05/22/19 4:46 pm Comments DCP- Discharge Planning Updated by [id number]: Vivian Shook on 05/22/19 2:[address] Patient will be discharging home today, IMM served and explained. His friend will be his logging truck driver home after he gets off work. He is current with [facility] and I will send them discharge paperwork. Patient has a nebulizer at home and is has been 98% on room air at the hospital. He also has a life alert necklace. Patient denies any other needs at this time. CM to follow and assist with dc planning. DCP- Discharge Planning Updated by [id number]: Liliana Mcnulty on 05/17/19 5:[address] Patient Name: SILVA SEPULVEDA Admission Status: ER Accout number: [id number] Admission Date: 05-14-2019 : 1950 Admission Diagnosis: Attending: KASHIF WATERMAN Current LOS: 3 Anticipated DC Date: Planned Disposition: Home with Home Health Primary Insurance: [facility] MEDICARE SOLUTIONS Discharge Planning Comments: CM met with patient to complete initial dc planning assessment. CM educated patient on the CM role and verbal consent given by patient to complete assessment. CM verified patient's address, phone number, and emergency contact phone numbers. Patient lives at home alone. At discharge patient plans to return home and feels that this is a safe discharge. CM discussed availability of home health, rehab services, and medical equipment. Patient has home health with [facility] and plans to resume care upon discharge. CANDELARIA signed. Patient may require walk test for 02 if needed upon discharge. CM will continue to follow and will assist as needed with dc plans/needs. Urgent Care: Liliana Mcnulty DCPIA - Discharge Planning Initial Assessment Updated by [id number]: Liliana Mcnulty on 05/17/19 6:48 pm * Is the patient Alert and Oriented? Yes * How many steps to enter\exit or inside your home? * PCP Javon * [facility] * Preadmission Environment Home Alone * ADLs Independent * Other Equipment cane, walker, power chair, CPAP - doesn't use * List name and contact numbers for known caregivers / representatives who currently or will assist patient after discharge: Duke champagne - [phone] Judge Lore champagne - [phone] * Verbal permission to speak to the caregivers and representatives has been obtained from the patient. Yes * Community resources currently utilized Home Health * Please name any agencies selected above. [facility] * Additional services required to return to the preadmission environment? Yes * Can the patient safely return to the preadmission environment? No * Has this patient been hospitalized within the prior 30 days at any hospital? Yes External Providers External Provider: [facility] Next Contact Date: Service Request Date: Service Type: Resolution: Reviewer: Comments: Coverage Notice Reviewer: [id number] - Vivian Shook Notice Issued Date-Time: 05/22/2019 15:15 Notice Type: IM Discharge Notice Notice Delivered To: Patient Relationship to Patient: Stewarding Supervisor Name: Delivery Method: HAND - Hand Delivered Princess Days: Prior Verbal Notification: Recipient Understood Notice: Yes Recipient Signature: Yes Med Rec Note Co-signed by Attending: Coverage Notice Comment: Last DP export: 05/22/19 2:27 pm Patient Name: SILVA SEPULVEDA Page 47887 at 1547 All edits/amendments must be made on the electronic document DICTATION DATE: 05/22/191545 BASTING PULLER: BERNICE 05/22/19 154 RPT#: [id number] DC DATE: STATUS: ADM IN [facility] [address] [place] [address] END OF REPORT
--- NOTE | 2019-05-22 16:48 | NUR ---
DISCHARGE INSTRUCTIONS GIVEN BOTH VERBALLY AND WRITTEN. ALL QUESTIONS ANSWERED. PATIENT VERBALIZED UNDERSTANDING OF SAME. WAITING ON RIDE TO D/C HOME.
--- NOTE | 2019-05-22 17:49 | NUR ---
PATIENT STILL WAITING RIDE HOME.
[2019-05-23 10:45] LABS: UPE RAND - ALBUMIN 44.5 % (()); UPE RAND - ALPHA 1 GLOBULIN 5.8 % (()); UPE RAND - ALPHA 2 GLOBULIN 20.1 % (()); UPE RAND - BETA GLOBULIN 24.2 % (()); UPE RAND - GAMMA GLOBULIN 5.4 % (())
--- NOTE | 2019-05-26 12:00 | MORECARE ---
CASE MANAGEMENT DISCHARGE SUMMARY PATIENT: SILVA SEPULVEDA UNIT: [id number] ADM DATE: 05/14/19 AGE: 69 : 52 SEX: M ROOM/BED: D.2215 AUTHOR: NITHIN,DOC PHYSICIAN: REFERRING PHYSICIAN: KASHIF WATERMAN MD DATE OF SERVICE: 05/26/19 Discharge Plan Patient Name: SILVA SEPULVEDA Facility: [facility]:[place] : 1950 Planned Disposition: Home with Home Health Anticipated Discharge Date: Discharge Date: 05/22/2019 Expected LOS: 0 Initial Reviewer: [email or web address] Initial Review Date: 05/17/2019 Generated: 05/26/19 1:00 pm Comments DCP- Discharge Planning Updated by [email or web address]: Vivian Shook on 05/22/19 1:[address] Patient will be discharging home today, IMM served and explained. His friend will be his coach driver home after he gets off work. He is current with [facility] and I will send them discharge paperwork. Patient has a nebulizer at home and is has been 98% on room air at the hospital. He also has a life alert necklace. Patient denies any other needs at this time. CM to follow and assist with dc planning. DCP- Discharge Planning Updated by [email or web address]: Liliana Mcnulty on 05/17/19 4:[address] Patient Name: SILVA SEPULVEDA Admission Status: ER Accout number: [id number] Admission Date: 05-14-2019 : 1950 Admission Diagnosis: Attending: KASHIF WATERMAN Current LOS: 3 Anticipated DC Date: Planned Disposition: Home with Home Health Primary Insurance: [facility] MEDICARE SOLUTIONS Discharge Planning Comments: CM met with patient to complete initial dc planning assessment. CM educated patient on the CM role and verbal consent given by patient to complete assessment. CM verified patient's address, phone number, and emergency contact phone numbers. Patient lives at home alone. At discharge patient plans to return home and feels that this is a safe discharge. CM discussed availability of home health, rehab services, and medical equipment. Patient has home health with [facility] and plans to resume care upon discharge. CANDELARIA signed. Patient may require walk test for 02 if needed upon discharge. CM will continue to follow and will assist as needed with dc plans/needs. Endoscopy Support Specialist: Liliana Mcnulty DCPIA - Discharge Planning Initial Assessment Updated by [id number]: Liliana Mcnulty on 05/17/19 6:48 pm * Is the patient Alert and Oriented? Yes * How many steps to enter\exit or inside your home? * PCP Javon * Pharmacy [facility]. [facility] * Preadmission Environment Home Alone * ADLs Independent * Other Equipment cane, walker, power chair, CPAP - doesn't use * List name and contact numbers for known caregivers / representatives who currently or will assist patient after discharge: Duke Barillas - mahi - [phone] Judge Lore champagne - [phone] * Verbal permission to speak to the caregivers and representatives has been obtained from the patient. Yes * Community resources currently utilized Home Health * Please name any agencies selected above. [facility] * Additional services required to return to the preadmission environment? Yes * Can the patient safely return to the preadmission environment? No * Has this patient been hospitalized within the prior 30 days at any hospital? Yes Coverage Notice Reviewer: [id number] Sukhdev Shook Notice Issued Date-Time: 05/22/2019 15:15 Notice Type: IM Discharge Notice Notice Delivered To: Patient Relationship to Patient: Bobbin Loose End Finder Name: Delivery Method: HAND - Hand Delivered Princess Days: Prior Verbal Notification: Recipient Understood Notice: Yes Recipient Signature: Yes Med Rec Note Co-signed by Attending: Coverage Notice Comment: Last DP export: 05/22/19 1:47 pm Patient Name: SILVA SEPULVEDA Page 53678 at 1200 All edits/amendments must be made on the electronic document DICTATION DATE: 05/26/19 1200 ARMHOLE BASTER JUMPBASTING: BERNICE 05/26/19 1200 RPT#: [id number] DC DATE:05/22/19 STATUS: DIS IN [facility] [address] [place] [address] END OF REPORT
== END 2019-05-22 18:11 | disposition home health service (06) | DRG 64 ==
LOC: D.ER 09:58 → D.MS 18:09 → D.CVICU 18:09 → D.MS 05-19 05:50
PROVIDERS: Emergency Medicine; Internal Medicine Nephrology; ADMIT Family Medicine; ATTEND Family Medicine
DX: I63.9 Cerebral infarction, unspecified (principal); N17.0 Acute kidney failure with tubular necrosis; K56.600 Partial intestinal obstruction, unspecified as to cause; N39.0 Urinary tract infection, site not specified; E87.0 Hyperosmolality and hypernatremia; R40.2362 Coma scale, best motor response, obeys commands, at arrival to emergency department; R40.2132 Coma scale, eyes open, to sound, at arrival to emergency department; R40.2242 Coma scale, best verbal response, confused conversation, at arrival to emergency department; I95.9 Hypotension, unspecified; R10.9 Unspecified abdominal pain; E10.9 Type 1 diabetes mellitus without complications; G40.909 Epilepsy, unspecified, not intractable, without status epilepticus; E87.6 Hypokalemia; I11.0 Hypertensive heart disease with heart failure; I50.9 Heart failure, unspecified; E78.5 Hyperlipidemia, unspecified

== ENCOUNTER 2019-07-31 13:12 | Emergency (ER) | payer MEDICARE ==
[~2019-07-31] VITALS: Ht 160 cm; Wt 70.0 kg
[2019-07-31 13:19] VITALS: Ht 160 cm; Wt 70.0 kg
[2019-07-31] MEDS ORDERED: CYCLOBENZAPRINE10 MG PO (14:34)
[2019-07-31] MEDS ORDERED: ACETAMINOPHEN500 M1 PO (14:34)
[2019-07-31 15:02] VITALS: BP 128/74
== END 2019-07-31 15:02 | disposition home or self-care (01) ==
LOC: D.ER 13:12
DX: M79.18 Myalgia, other site (principal); R07.89 Other chest pain; W19.XXXA Unspecified fall, initial encounter; Y93.9 Activity, unspecified; Y92.9 Unspecified place or not applicable; I10 Essential (primary) hypertension; J44.9 Chronic obstructive pulmonary disease, unspecified; I25.2 Old myocardial infarction; Z86.73 Personal history of transient ischemic attack (TIA), and cerebral infarction without residual deficits; E11.40 Type 2 diabetes mellitus with diabetic neuropathy, unspecified; Z79.4 Long term (current) use of insulin

== ENCOUNTER 2019-11-03 10:17 | Observation (INO) | payer MEDICARE ==
[~2019-11-03] VITALS: Ht 160 cm; Wt 71.2 kg
--- NOTE | ~2019-11-03 | EC ---
PATIENT:SILVA SEPULVEDA DATE OF SERVICE: 11/03/19 SEX: M MEDICAL RECORD: [id number] DATE OF : [birth year] LOCATION:D.M2 D.211 AGE OF PATIENT: 69 ADMISSION DATE: 11/03/19 REFERRING PHYSICIAN: INTERPRETING PHYSICIAN: GURDEEP ESTEBAN MD ECHOCARDIOGRAM REPORT ECHO CHARGES 4 ECHO COMPLETE Date: 11/04/19 CLINICAL DIAGNOSIS: CP ECHOCARDIOGRAPHIC MEASUREMENTS (adult normal given) AC root (d.<3.7cm) 2.3 cm LV Septum d (<1.2 cm> 1.2 cm Valve Excursion 1.5 cm LV Septum (systole) 1.8 cm Left Atria (s.<4.0cm> 3.3 cm LVPW d(<1.2cm) 0.9 cm RV (d.<2.3cm) 3.1 cm LVPW (sytole) 1.0 cm LV diastole(<5.6CM) 4.3 cm MV E-F(>70mm/sec) cm LV systole 3.0 cm LVOT Diameter 1.4 cm MV exc.(>10mm) cm Est.ejection fraction (50-75%) % DOPPLER: LVIT cm/sec A 108 cm/sec E 79 cm/sec LA cm/sec RVSP 17.2 mmHg LVOT 98 cm/sec AOP1/2T m/s Asc. Ao 118 cm/sec RVOT 58 cm/sec RA cm/sec PA 95 cm/sec AV Gradient Peak 5.6 mmHg AV Mean 3.3 mmHg AV Area 1.0 cm MV Gradient Peak 4.9 mmHg MV Mean 2.2 mmHg MV Area cm COMMENTS: Distillation Operator: Fritz [facility] Automatic Coil Machine Operator: 3 Dr. Johnson TAPE# PACS Pericardial Effusion N DATE OF SERVICE: Adequate 2D, color flow imaging, spectral Doppler, and M-mode. No LVH. LV internal dimensions are normal. Wall motion is normal. EF is greater than or equal to 55%. Aortic valve is tricuspid. No evidence of stenosis by Doppler interrogation. Left atrium is normal. Mitral valve shows no prolapse. Trace MR. Right-sided chambers are grossly normal. Trace TR. TRANSINT:[id number] Voice Confirmation ID: [id number] DOCUMENT ID: [id number] ECHOCARDIOGRAM REPORT [id number] SILVA SEPULVEDA GURDEEP ESTEBAN MD CC: [id number] DICTATION DATE: 11/04/19 1442 GEOTECHNICAL DEPARTMENT MANAGER: 11/04/19 2301 ADM IN [place] [id number] [place] [id number]
[~2019-11-03 10:17] MED LIST changes: +ACETAMINOPHEN500 M1 PO; +CYCLOBENZAPRINE10 MG PO
[2019-11-03 10:48] LABS: BASOPHILS 0.6 % (0-2); HEMATOCRIT 35.2 % (42.0-54.0); HEMOGLOBIN 10.9 g/dL (13.5-17.5); IMMATURE GRANULOCYTES 0.2 % (0-5); MCH 24.1 pg (26.0-34.0); MCV 77.7 fL (80.0-100.0); MEAN PLATELET VOLUME 10.4 fL (7.4-10.4); MONOCYTES 7.6 % (2-11); NEUTROPHILS 63.6 % (40-80); PLATELET COUNT 224 10x3/uL (130-400); RBC 4.53 10x6/uL (4.20-6.10); RDW 18.4 % (11.5-14.5)
[2019-11-03 11:07] LABS: CALC OSMOLALITY 287 mosm/kg (275-300); CALCIUM 8.7 mg/dL (8.5-10.1); CARBON DIOXIDE 29.3 mmol/L (21.0-32.0); CHLORIDE - SERUM 107 mmol/L (98-107); GLUCOSE 115 mg/dL (74-106); POTASSIUM - SERUM 4.1 mmol/L (3.5-5.1); SODIUM 142 mmol/L (136-145); UREA NITROGEN 25 mg/dL (7-18); eGFR NON AFRICAN AMERICAN 79 mL/min (90-120)
[2019-11-03 11:24] LABS: ALBUMIN 3.5 g/dL (3.4-5.0); ALKALINE PHOSPHATASE 83 U/L (30-120); ALT (SGPT) 25 U/L (10-68); BILIRUBIN - TOTAL 0.32 mg/dL (0.2-1.3); CKMB 1.2 U/L (0.0-3.6); CREATINE KINASE 107 UL (21-232); PROTEIN - SERUM 6.9 g/dL (6.4-8.2)
[2019-11-03 11:25] LABS: TROPONIN-I < 0.017 ng/mL (0.000-0.060)
[2019-11-03 11:31] LABS: APTT 38.7 SECONDS (22.8-39.4); INR 1.02 (0.85-1.17); PROTIME 13.3 SECONDS (11.6-15.0)
[2019-11-03] MEDS ORDERED: NORVASC10 MG PO ×2 (12:18→12:19)
[2019-11-03 12:32] VITALS: BP 130/53
--- NOTE | 2019-11-03 15:08 | NUR ---
CALLED ER TO GET REPORT, WAS UNABLE TO SPEAK WITH NURSE.
[2019-11-03 15:16] VITALS: BP 139/72
[2019-11-03] MEDS ORDERED: LIPITOR20 MG PO (15:41)
[2019-11-03] MEDS ORDERED: PREDNISONE1 MG PO (15:42)
[2019-11-03] MEDS ORDERED: ZYLOPRIM300 MG PO (15:43)
[2019-11-03] MEDS ORDERED: LISINOPRIL20 MG PO (15:45)
[2019-11-03] MEDS ORDERED: TEGRETOL XR200 M1 PO (15:47)
[2019-11-03 16:04] VITALS: BP 143/62; BMI 27.8
[2019-11-03 18:15] LABS: CKMB 1.2 U/L (0.0-3.6); CREATINE KINASE 110 UL (21-232)
[2019-11-03 18:18] LABS: TROPONIN-I < 0.017 ng/mL (0.000-0.060)
--- NOTE | 2019-11-03 19:42 | NUR ---
RECEIVED BEDSIDE REPORT. ROUND COMPLETE. PATIENT IS ALERT AND ORIENTED, RESTING COMFORTABLY IN BED. RESPIRATIONS ARE EVEN AND UNLABORED. NO S/S OF DISTRESS. NO C/O PAIN. CALL LIGHT WITHIN REACH. WILL CPOC.
[2019-11-03 20:00] VITALS: BP 139/67
[2019-11-03 23:33] LABS: CREATINE KINASE 99 UL (21-232)
[2019-11-03 23:34] LABS: TROPONIN-I < 0.017 ng/mL (0.000-0.060)
[2019-11-04] VITALS: BP 139/67
[2019-11-04 04:00] VITALS: BP 142/68
[2019-11-04 08:00] VITALS: BP 151/65
[2019-11-04 11:00] VITALS: BP 158/77
[2019-11-04 13:34] VITALS: Ht 160 cm; Wt 71.2 kg
[2019-11-04 15:00] VITALS: BP 115/66
--- NOTE | 2019-11-04 17:43 | MORECARE ---
CASE MANAGEMENT DISCHARGE SUMMARY PATIENT: MIKEL BABCOCK UNIT: [id number] ADM DATE: 11/03/19 AGE: 69 : 51 SEX: M ROOM/BED: D.0959 AUTHOR: RADHA WELLER PHYSICIAN: REFERRING PHYSICIAN: KASHIF WATERMAN MD DATE OF SERVICE: 11/04/19 Discharge Plan Patient Name: MIKEL BABCOCK Facility: [facility]:[place] : 1950 Planned Disposition: Anticipated Discharge Date: Discharge Date: Expected LOS: Initial Reviewer: [email or web address] Initial Review Date: 11/03/2019 Generated: 11/04/19 6:42 pm External Providers External Provider: [employer] Next Contact Date: Service Request Date: Service Type: Resolution: Reviewer: Comments: Coverage Notice Reviewer: [id number] Sukhdev Schwab Notice Issued Date-Time: 11/04/2019 8:42 Notice Type: Medicare Outpatient Observation Notice Notice Delivered To: Patient Relationship to Patient: Self Extrusion Technician Name: Mikel babcock Delivery Method: HAND - Hand Delivered Princess Days: Prior Verbal Notification: Recipient Understood Notice: Yes Recipient Signature: Yes Med Rec Note Co-signed by Attending: Coverage Notice Comment: ARCEO signed/delivered to patient. Original to chart. Patient Name: MIKEL BABCOCK Page [phone] at 1743 All edits/amendments must be made on the electronic document DICTATION DATE: 11/04/191741 MOTOR OPERATOR: BERNICE 11/04/191741 RPT#: [id number] DC DATE: STATUS: ADM IN [facility] [address] [place] [address] END OF REPORT
--- NOTE | 2019-11-04 19:49 | NUR ---
RECEIVED BEDSIDE REPORT. ROUNDING COMPLETE. PATIENT IS ALERT AND ORIENTED, RESTING COMFORTABLY IN BED. RESPIRATIONS ARE EVEN AND UNLABORED. NO S/S OF DISTRESS. NO C/O PAIN. CALL LIGHT WITHIN REACH. WILL CPOC.
[2019-11-04 22:30] VITALS: BP 132/59
[2019-11-05 04:30] VITALS: BP 118/55
[2019-11-05 06:31] LABS: BASOPHILS 0.4 % (0-2); EOSINOPHILS 2.1 % (0-7); HEMATOCRIT 31.4 % (42.0-54.0); HEMOGLOBIN 9.5 g/dL (13.5-17.5); IMMATURE GRANULOCYTES 0.2 % (0-5); LYMPHOCYTES 27.7 % (15-50); MCH 23.4 pg (26.0-34.0); MCHC 30.3 g/dL (31.0-37.0); MCV 77.3 fL (80.0-100.0); MEAN PLATELET VOLUME 10.2 fL (7.4-10.4); MONOCYTES 10.5 % (2-11); NEUTROPHILS 59.1 % (40-80); PLATELET COUNT 223 10x3/uL (130-400); RBC 4.06 10x6/uL (4.20-6.10); RDW 18.1 % (11.5-14.5); WBC 5.6 10x3/uL (4.8-10.8)
[2019-11-05 07:14] LABS: CALC OSMOLALITY 284 mosm/kg (275-300); CALCIUM 8.4 mg/dL (8.5-10.1); CARBON DIOXIDE 25.9 mmol/L (21.0-32.0); CHLORIDE - SERUM 106 mmol/L (98-107); GLUCOSE 85 mg/dL (74-106); POTASSIUM - SERUM 3.7 mmol/L (3.5-5.1); SODIUM 141 mmol/L (136-145); UREA NITROGEN 26 mg/dL (7-18); eGFR NON AFRICAN AMERICAN 79 mL/min (90-120)
[2019-11-05 08:46] VITALS: BP 115/61
[2019-11-05 11:59] VITALS: BP 103/52
[2019-11-05] MEDS ORDERED: ISOSORBIDE MONO10 MG PO (13:17)
--- NOTE | 2019-11-05 15:03 | NUR ---
IV AND TELEMETRY DCD. DC PLANS GIVEN. UNDAERSTANDING VOICED. ESCORTED TO CAR BY W/C.
--- NOTE | 2019-11-05 15:19 | MORECARE ---
CASE MANAGEMENT DISCHARGE SUMMARY PATIENT: MIKEL BABCOCK UNIT: [id number] ADM DATE: 11/03/19 AGE: 69 : 51 SEX: M ROOM/BED: D.0137 AUTHOR: RADHA WELLER PHYSICIAN: REFERRING PHYSICIAN: KASHIF WATERMAN MD DATE OF SERVICE: 11/05/19 Discharge Plan Patient Name: MIKEL BABCOCK Facility: [facility]:[place] : 1950 Planned Disposition: Home Anticipated Discharge Date: 11/05/19 Discharge Date: 11/05/2019 Expected LOS: 2 Initial Reviewer: [id number] Initial Review Date: 11/03/2019 Generated: 11/05/19 4:19 pm Coverage Notice Reviewer: [id number] Sukhdev Schwab Notice Issued Date-Time: 11/04/2019 8:42 Notice Type: Medicare Outpatient Observation Notice Notice Delivered To: Patient Relationship to Patient: Self Oyster Preparer Name: Mikel babcock Delivery Method: HAND - Hand Delivered Princess Days: Prior Verbal Notification: Recipient Understood Notice: Yes Recipient Signature: Yes Med Rec Note Co-signed by Attending: Coverage Notice Comment: ARCEO signed/delivered to patient. Original to chart. Last DP export: 11/04/19 4:43 p Patient Name: MIKEL BABCOCK Page [phone] at 1519 All edits/amendments must be made on the electronic document DICTATION DATE: 11/05/191518 BIOFUELS ENGINEERING MANAGER: BERNICE 11/05/19 1519 RPT#: [id number] DC DATE:11/05/19 STATUS: DIS IN [facility] [address] [place] [address] END OF REPORT
== END 2019-11-05 15:04 | disposition home or self-care (01) ==
LOC: D.ER 10:17 → D.M2 14:16 → OBSVTIME 14:16 → D.M2 14:16
PROVIDERS: Family Medicine; ADMIT Family Medicine; ATTEND Family Medicine
DX: I20.0 Unstable angina (principal); R07.89 Other chest pain; I10 Essential (primary) hypertension; E78.5 Hyperlipidemia, unspecified; E11.9 Type 2 diabetes mellitus without complications; Z86.73 Personal history of transient ischemic attack (TIA), and cerebral infarction without residual deficits; J44.9 Chronic obstructive pulmonary disease, unspecified; R07.9 Chest pain, unspecified; Z79.4 Long term (current) use of insulin; K21.9 Gastro-esophageal reflux disease without esophagitis

== ENCOUNTER 2020-05-22 17:44 | Inpatient (IN) | payer MEDICARE ==
[~2020-05-22] VITALS: Ht 160 cm; Wt 76.1 kg
[~2020-05-22 17:44] MED LIST changes: +ISOSORBIDE MONO10 MG PO; +LIPITOR20 MG PO; +NORVASC10 MG PO
[2020-05-22 18:22] LABS: BASOPHILS 0.7 % (0-2); EOSINOPHILS 2.3 % (0-7); HEMATOCRIT 32.6 % (42.0-54.0); HEMOGLOBIN 9.6 g/dL (13.5-17.5); IMMATURE GRANULOCYTES 0.3 % (0-5); LYMPHOCYTE ABS# 1.67 10x3/uL (1.32-3.57); LYMPHOCYTES 27.7 % (15-50); MCH 20.4 pg (26.0-34.0); MCHC 29.4 g/dL (31.0-37.0); MCV 69.4 fL (80.0-100.0); MONOCYTES 9.3 % (2-11); NEUTROPHIL ABS# 3.59 10x3/uL (1.78-5.38); NEUTROPHILS 59.7 % (40-80); PLATELET COUNT 269 10x3/uL (130-400)
[2020-05-22 18:32] LABS: CALC OSMOLALITY 284 mosm/kg (275-300); CALCIUM 8.6 mg/dL (8.5-10.1); CHLORIDE - SERUM 105 mmol/L (98-107); GLUCOSE 144 mg/dL (74-106); POTASSIUM - SERUM 3.6 mmol/L (3.5-5.1); SODIUM 141 mmol/L (136-145); UREA NITROGEN 16 mg/dL (7-18); eGFR NON AFRICAN AMERICAN 79 mL/min (90-120)
[2020-05-22 18:49] LABS: ALBUMIN 3.6 g/dL (3.4-5.0); ALKALINE PHOSPHATASE 91 U/L (30-120); ALT (SGPT) 20 U/L (10-68); BILIRUBIN - TOTAL 0.18 mg/dL (0.2-1.3); CKMB 0.8 U/L (0.0-3.6); CREATINE KINASE 91 UL (21-232); PRO BNP 28 pg/mL (0-125); TROPONIN-I < 0.017 ng/mL (0.000-0.060)
[2020-05-22 18:52] LABS: APTT 39.4 SECONDS (22.8-39.4); INR 1.05 (0.85-1.17); PROTIME 12.6 SECONDS (11.6-15.0)
[2020-05-22 20:05] VITALS: BP 138/78
[2020-05-23 01:13] LABS: CKMB 0.7 U/L (0.0-3.6); CREATINE KINASE 85 UL (21-232); TROPONIN-I < 0.017 ng/mL (0.000-0.060)
[2020-05-23 04:00] VITALS: BP 140/80
[2020-05-23 04:06] VITALS: BP 138/78; Ht 160 cm; Wt 76.1 kg
[2020-05-23 05:08] LABS: BASOPHILS 0.2 % (0-2); EOSINOPHILS 0.2 % (0-7); HEMATOCRIT 30.9 % (42.0-54.0); IMMATURE GRANULOCYTES 0.2 % (0-5); LYMPHOCYTE ABS# 0.48 10x3/uL (1.32-3.57); LYMPHOCYTES 10.4 % (15-50); MCH 19.9 pg (26.0-34.0); MCHC 29.1 g/dL (31.0-37.0); MCV 68.2 fL (80.0-100.0); MONOCYTES 0.2 % (2-11); NEUTROPHIL ABS# 4.11 10x3/uL (1.78-5.38); NEUTROPHILS 88.8 % (40-80); PLATELET COUNT 267 10x3/uL (130-400); RBC 4.53 10x6/uL (4.20-6.10); RDW 20.1 % (11.5-14.5); WBC 4.6 10x3/uL (4.8-10.8)
--- NOTE | 2020-05-23 05:09 | NUR ---
I have reviewed this patient and I concur with the Shift Assessment completed by the Licensed Practical Nurse today this shift.
--- NOTE | 2020-05-23 05:11 | NUR ---
ADMISSION ASSESSMENT COMPLETED. NO DISTRESS. RESTING COMFORTABLY.
[2020-05-23 06:23] LABS: ALBUMIN 3.4 g/dL (3.4-5.0); ALKALINE PHOSPHATASE 76 U/L (30-120); BILIRUBIN - TOTAL 0.17 mg/dL (0.2-1.3); CALC OSMOLALITY 284 mosm/kg (275-300); CALCIUM 8.5 mg/dL (8.5-10.1); CARBON DIOXIDE 25.6 mmol/L (21.0-32.0); CHLORIDE - SERUM 105 mmol/L (98-107); CKMB 0.5 U/L (0.0-3.6); CREATINE KINASE 78 UL (21-232); GLUCOSE 150 mg/dL (74-106); POTASSIUM - SERUM 3.9 mmol/L (3.5-5.1); PROTEIN - SERUM 6.8 g/dL (6.4-8.2); SODIUM 140 mmol/L (136-145); UREA NITROGEN 20 mg/dL (7-18); eGFR NON AFRICAN AMERICAN 79 mL/min (90-120)
[2020-05-23 06:25] LABS: ALT (SGPT) 27 U/L (10-68); TROPONIN-I < 0.017 ng/mL (0.000-0.060)
[2020-05-23 07:00] VITALS: BP 173/67
[2020-05-23] MEDS ORDERED: PROAIR HFA8.5 G1 INH (11:13)
[2020-05-23] MEDS ORDERED: NORVASC10 MG PO (11:14)
[2020-05-23] MEDS ORDERED: CLONIDINE HCL0.1 MG PO (11:16)
[2020-05-23] MEDS ORDERED: BRIVIACT PO (11:17)
[2020-05-23] MEDS ORDERED: IPRAT-ALBUT 0.5-3 ML INH (11:32)
[2020-05-23] MEDS ORDERED: MEDROL DOSE PACK4 MG PO (11:34)
[2020-05-23 11:55] LABS: CKMB 0.2 U/L (0.0-3.6); CREATINE KINASE 66 UL (21-232)
[2020-05-23 11:56] LABS: TROPONIN-I < 0.017 ng/mL (0.000-0.060)
--- NOTE | 2020-05-23 13:00 | MORECARE ---
CASE MANAGEMENT DISCHARGE SUMMARY PATIENT: SILVA SEPULVEDA UNIT: [id number] ADM DATE: 05/22/20 AGE: 70 : 51 SEX: M ROOM/BED: D.[facility] AUTHOR: RADHA WELLER PHYSICIAN: REFERRING PHYSICIAN: MAGUI FORD MD DATE OF SERVICE: 05/23/20 Discharge Plan Patient Name: SILVA SEPULVEDA Facility: [facility]:[place] : 1950 Planned Disposition: Home Anticipated Discharge Date: 05/23/20 Discharge Date: Expected LOS: 1 Initial Reviewer: [email or web address] Initial Review Date: 05/22/2020 Generated: 05/23/20 1:59 pm DCPIA - Discharge Planning Initial Assessment Updated by [email or web address]: Jaycob Spence on 05/23/20 12:57 pm * Is the patient Alert and Oriented? Yes * How many steps to enter\exit or inside your home? 0/0 * PCP GUEVARA * Pharmacy [facility] [address] * Preadmission Environment Home Alone * ADLs Independent * Equipment Cane Power Chair or Electric Scooter Rolling Walker * Other Equipment n/a * List name and contact numbers for known caregivers / representatives who currently or will assist patient after discharge: TOÑITO PITTS (friend) [phone] * Verbal permission to speak to the caregivers and representatives has been obtained from the patient. Yes * Community resources currently utilized None * Please name any agencies selected above. NONE * Additional services required to return to the preadmission environment? No * Can the patient safely return to the preadmission environment? Yes * Has this patient been hospitalized within the prior 30 days at any hospital? No Coverage Notice Reviewer: [email or web address] - Jaycob Spence Notice Issued Date-Time: 05/23/2020 12:30 Notice Type: IM Discharge Notice Notice Delivered To: Patient Relationship to Patient: Self System Specialist Name: Delivery Method: HAND - Hand Delivered Princess Days: Prior Verbal Notification: Recipient Understood Notice: Yes Recipient Signature: Yes Med Rec Note Co-signed by Attending: Coverage Notice Comment: DC IMM delivered, explained, signed by the patient, and placed in chart. Patient Name: SILVA SEPULVEDA Page 24489 at 1300 All edits/amendments must be made on the electronic document DICTATION DATE: 05/23/20 125 DISTRIBUTION CENTER SUPERVISOR: BERNICE 05/23/201258 RPT#: [id number] DC DATE: STATUS: ADM IN [facility] [address] [place] [address] END OF REPORT
--- NOTE | 2020-05-23 13:59 | MORECARE ---
CASE MANAGEMENT DISCHARGE SUMMARY PATIENT: SILVA SEPULVEDA UNIT: [id number] ADM DATE: 05/22/20 AGE: 70 : 51 SEX: M ROOM/BED: D.3 AUTHOR: NITHIN,DOC PHYSICIAN: REFERRING PHYSICIAN: MAGUI FORD MD DATE OF SERVICE: 05/23/20 Discharge Plan Patient Name: SILVA SEPULVEDA Facility: [facility]:[place] : 1950 Planned Disposition: Home Anticipated Discharge Date: 05/23/20 Discharge Date: 05/23/2020 Expected LOS: 1 Initial Reviewer: SUDEEP Initial Review Date: 05/22/2020 Generated: 05/23/20 2:58 pm Comments DCP- Discharge Planning Updated by SUDEEP: Jaycob Sepnce on 05/23/20 12:[address] CM met with patient to complete DC plan and to evaluate needs. Patient lives independently alone. At discharge, the patient plans to return home and feels this is a safe discharge. CM discussed availability of home health, rehab services, and medical equipment. Patient declined SNF, IPR, and DME. Patient stated that he has [place] [facility] and would like to resume Lexy. Patient stated that he has a nebulizer at home. Clinicals faxed to [place]. Patient voiced no other needs at this time and is satisfied with DC plan. Transportation provider at discharge will be with his friend, Toñito Pitts ([phone]). DC IMM delivered, explained, signed by the patient, and placed in chart. Signed form also left with the patient. CM will continue to follow and will assist as needed with dc plans/needs. DCPIA - Discharge Planning Initial Assessment Updated by [email or web address]: Jaycob Spence on 05/23/20 12:57 pm * Is the patient Alert and Oriented? Yes * How many steps to enter\exit or inside your home? 0/0 * PCP GUEVARA * Pharmacy [facility] [address] * Preadmission Environment Home Alone * ADLs Independent * Equipment Cane Power Chair or Electric Scooter Rolling Walker * Other Equipment n/a * List name and contact numbers for known caregivers / representatives who currently or will assist patient after discharge: TOÑITO PITTS (friend) [phone] * Verbal permission to speak to the caregivers and representatives has been obtained from the patient. Yes * Community resources currently utilized None * Please name any agencies selected above. NONE * Additional services required to return to the preadmission environment? No * Can the patient safely return to the preadmission environment? Yes * Has this patient been hospitalized within the prior 30 days at any hospital? No External Providers External Provider: [facility] [facility] Next Contact Date: Service Request Date: Service Type: Resolution: Reviewer: Comments: Coverage Notice Reviewer: [id number] Sukhdev PantojaJaycobramiro Marroquinnes Notice Issued Date-Time: 05/23/2020 12:30 Notice Type: IM Discharge Notice Notice Delivered To: Patient Relationship to Patient: Self Compensation And Benefits Administrator Name: Delivery Method: HAND - Hand Delivered Princess Days: Prior Verbal Notification: Recipient Understood Notice: Yes Recipient Signature: Yes Med Rec Note Co-signed by Attending: Coverage Notice Comment: DC IMM delivered, explained, signed by the patient, and placed in chart. Last DP export: 05/23/20 12:00 pm Patient Name: SILVA SEPULVEDA Page [phone] at 1359 All edits/amendments must be made on the electronic document DICTATION DATE: 05/23/20 135 MIXING MACHINE TENDER CORK ROD: BERNICE 05/23/20 1358 RPT#: [id number] DC DATE:05/23/20 STATUS: DIS IN [facility] [address] [place] [address] END OF REPORT
--- NOTE | 2020-05-23 14:07 | MORECARE ---
CASE MANAGEMENT DISCHARGE SUMMARY PATIENT: SILVA SEPULVEDA UNIT: [id number] ADM DATE: 05/22/20 AGE: 70 : 51 SEX: M ROOM/BED: D.9 AUTHOR: NITHINDOC PHYSICIAN: REFERRING PHYSICIAN: MAGUI FORD MD DATE OF SERVICE: 05/23/20 Discharge Plan Patient Name: SILVA SEPULVEDA Facility: [facility]:[place] : 1950 Planned Disposition: Home with Home Health Anticipated Discharge Date: 05/23/20 Discharge Date: 05/23/2020 Expected LOS: 1 Initial Reviewer: SUDEEP Initial Review Date: 05/22/2020 Generated: 05/23/20 3:06 pm Comments DCP- Discharge Planning Updated by SUDEEP: Jaycob Spence on 05/23/20 12:[address] CM met with patient to complete DC plan and to evaluate needs. Patient lives independently alone. At discharge, the patient plans to return home and feels this is a safe discharge. CM discussed availability of home health, rehab services, and medical equipment. Patient declined SNF, IPR, and DME. Patient stated that he has [place] [facility] and would like to resume Lexy. Patient stated that he has a nebulizer at home. Clinicals faxed to [place]. Patient voiced no other needs at this time and is satisfied with DC plan. Transportation provider at discharge will be with his friend, Toñito Pitts ([phone]). DC IMM delivered, explained, signed by the patient, and placed in chart. Signed form also left with the patient. CM will continue to follow and will assist as needed with dc plans/needs. DCPIA - Discharge Planning Initial Assessment Updated by [email or web address]: Jaycob Spence on 05/23/20 12:57 pm * Is the patient Alert and Oriented? Yes * How many steps to enter\exit or inside your home? 0/0 * PCP GUEVARA * Pharmacy [facility] [address] * Preadmission Environment Home Alone * ADLs Independent * Equipment Cane Power Chair or Electric Scooter Rolling Walker * Other Equipment n/a * List name and contact numbers for known caregivers / representatives who currently or will assist patient after discharge: TOÑITO PITTS (friend) [phone] * Verbal permission to speak to the caregivers and representatives has been obtained from the patient. Yes * Community resources currently utilized None * Please name any agencies selected above. NONE * Additional services required to return to the preadmission environment? No * Can the patient safely return to the preadmission environment? Yes * Has this patient been hospitalized within the prior 30 days at any hospital? No Coverage Notice Reviewer: [id number] Sukhdev Spence Notice Issued Date-Time: 05/23/2020 12:30 Notice Type: IM Discharge Notice Notice Delivered To: Patient Relationship to Patient: Self Ag Service Manager Name: Delivery Method: HAND - Hand Delivered Princess Days: Prior Verbal Notification: Recipient Understood Notice: Yes Recipient Signature: Yes Med Rec Note Co-signed by Attending: Coverage Notice Comment: DC IMM delivered, explained, signed by the patient, and placed in chart. Last DP export: 05/23/20 12:59 pm Patient Name: SILVA SEPULVEDA Page [phone] at 1407 All edits/amendments must be made on the electronic document DICTATION DATE: 05/23/20 1407 FLAMER AFTER LASTING: BERNICE 05/23/20 1407 RPT#: [id number] DC DATE:05/23/20 STATUS: DIS IN [facility] [address] [place] [address] END OF REPORT
--- NOTE | 2020-05-24 07:55 | MORECARE ---
CASE MANAGEMENT DISCHARGE SUMMARY PATIENT: SILVA SEPULVEDA UNIT: [id number] ADM DATE: 05/22/20 AGE: 70 : 51 SEX: M ROOM/BED: D.7 AUTHOR: NITHINDOC PHYSICIAN: REFERRING PHYSICIAN: MAGUI FORD MD DATE OF SERVICE: 05/24/20 Discharge Plan Patient Name: SILVA SEPULVEDA Facility: [facility]:[place] : 1950 Planned Disposition: Home with Home Health Anticipated Discharge Date: 05/23/20 Discharge Date: 05/23/2020 Expected LOS: 1 Initial Reviewer: SUDEEP Initial Review Date: 05/22/2020 Generated: 05/24/20 8:54 am Comments DCP- Discharge Planning Updated by SUDEEP: Jaycob Spence on 05/23/20 12:[address] CM met with patient to complete DC plan and to evaluate needs. Patient lives independently alone. At discharge, the patient plans to return home and feels this is a safe discharge. CM discussed availability of home health, rehab services, and medical equipment. Patient declined SNF, IPR, and DME. Patient stated that he has [place] [facility] and would like to resume Lexy. Patient stated that he has a nebulizer at home. Clinicals faxed to [place]. Patient voiced no other needs at this time and is satisfied with DC plan. Transportation provider at discharge will be with his friend, Toñito Pitts ([phone]). DC IMM delivered, explained, signed by the patient, and placed in chart. Signed form also left with the patient. CM will continue to follow and will assist as needed with dc plans/needs. DCPIA - Discharge Planning Initial Assessment Updated by [email or web address]: Jaycob Spence on 05/23/20 12:57 pm * Is the patient Alert and Oriented? Yes * How many steps to enter\exit or inside your home? 0/0 * PCP GUEVARA * Pharmacy [facility] [address] * Preadmission Environment Home Alone * ADLs Independent * Equipment Cane Power Chair or Electric Scooter Rolling Walker * Other Equipment n/a * List name and contact numbers for known caregivers / representatives who currently or will assist patient after discharge: TOÑITO PITTS (friend) [phone] * Verbal permission to speak to the caregivers and representatives has been obtained from the patient. Yes * Community resources currently utilized None * Please name any agencies selected above. NONE * Additional services required to return to the preadmission environment? No * Can the patient safely return to the preadmission environment? Yes * Has this patient been hospitalized within the prior 30 days at any hospital? No Coverage Notice Reviewer: [id number] Sukhdev Spence Notice Issued Date-Time: 05/23/2020 12:30 Notice Type: IM Discharge Notice Notice Delivered To: Patient Relationship to Patient: Self Employment Educational Coord Name: Delivery Method: HAND - Hand Delivered Princess Days: Prior Verbal Notification: Recipient Understood Notice: Yes Recipient Signature: Yes Med Rec Note Co-signed by Attending: Coverage Notice Comment: DC IMM delivered, explained, signed by the patient, and placed in chart. Last DP export: 05/23/20 1:07 pm Patient Name: SILVA SEPULVEDA Page 14672 at 0755 All edits/amendments must be made on the electronic document DICTATION DATE: 05/24/20 0754 NAVAL MARINE ENGINEER: BERNICE 05/24/20 0754 RPT#: [id number] DC DATE:05/23/20 STATUS: DIS IN [address] [place] [address] END OF REPORT
--- NOTE | 2020-05-24 08:46 | HP ---
PATIENT: SILVA SEPULVEDA MEDICAL RECORD: [id number] ACCOUNT: [id number] LOCATION:[address] : [birth year] ADMISSION DATE: 05/22/20 PCP: KASHIF WATERMAN HISTORY AND PHYSICAL EXAMINATION DATE OF ADMISSION: 05/22/2020 CHIEF COMPLAINT: Shortness of breath. HISTORY OF PRESENT ILLNESS: This is a 70-year-old white male followed by Dr. Waterman. He has multiple problems. He called me on the morning of admission stating that his temperature is very low. He is having shortness of breath. He went to a walk-in clinic where he was told he had fluid on his lungs and had congestive heart failure and shortness of breath and he was brought to [place] [facility] for further evaluation. Here, his vital signs were fairly stable. CBC was okay except hemoglobin of 9.6 (with a history of anemia). His proBNP was 28. Chest x-ray did not show any increased congestion. He has a history of COPD and will be admitted for COPD exacerbation. PAST MEDICAL HISTORY: He has diabetes, rheumatoid arthritis, coronary artery disease, COPD, hypertension, hyperlipidemia, polio as a child, gastric ulcers, TIA in 2014, seizure disorder, anemia, sleep apnea. PAST SURGICAL HISTORY: Appendectomy, hernia repair times 3. He has had coronary stents and he has had over 17 surgeries on his lower extremities due to infections from polio. ALLERGIES: SHELLFISH, CODEINE, IODINE, MORPHINE, AND TOMATOES. HOME MEDICATIONS: Include Lyrica 50 mg twice a day; isosorbide mononitrate 10 mg 2 a day; Tegretol-XR 200 twice a day; Lipitor 10 mg once a day; prednisone 1 mg at bedtime; allopurinol 300 mg 1/2 tablet at bedtime; lisinopril 20 mg twice a day; Dexilant 60 mg once a day; Plavix 75 mg once a day; Singulair 10 mg at bedtime; carvedilol 6.25 b.i.d.; gabapentin 600 mg b.i.d.; Lantus insulin 16 units daily; ProAir HFA 2 inhalations q.6 hours p.r.n. wheeze, shortness of breath; amlodipine 10 mg daily; clonidine 0.1 p.o. q.6 hours p.r.n. for elevated blood pressure; and Dr. Vyas has him on Briviact 50 mg twice a day for seizures. HABITS: Former smoker. No alcohol or drugs. SOCIAL HISTORY: He lives alone. FAMILY HISTORY: History of hypertension. REVIEW OF SYSTEMS: GENERAL: No major weight changes. HEENT: No particular sinus or allergy problems. RESPIRATORY: He has history of COPD. CARDIAC: He has history of stents, seems to be stable now. GASTROINTESTINAL: He has had a history of gastric ulcers and has reflux. GENITOURINARY: No significant problems there. MUSCULOSKELETAL: He has history of rheumatoid arthritis. NEUROLOGIC: No migraines, but does have seizures, followed by Dr. Vyas. PSYCHIATRIC: No depression or melancholia. HISTORY AND PHYSICAL [id number] SILVA SEPULVEDA PHYSICAL EXAMINATION: VITAL SIGNS: Temperature 98.7, pulse 76, respirations 16, blood pressure 139/49, O2 sat 97% currently. GENERAL: He is awake and alert. He is feeling some better. SKIN: Warm and dry. HEENT: Grossly within normal limits. NECK: Supple. HEART: Regular rate and rhythm. LUNGS: Fairly clear. He has distant breath sounds. No wheezes currently. ABDOMEN: Soft, flat, nontender. EXTREMITIES: No edema. NEUROLOGIC: Unremarkable. IMPRESSION: 1. Chronic obstructive pulmonary disease exacerbation. 2. History of diabetes. 3. Hypertension. PLAN: Radha Olmos. Continue his other usual home medications. Other tests or procedures as warranted. TRANSINT:[id number] Voice Confirmation ID: [id number] DOCUMENT ID: [id number] MAGUI FORD MD at 0846 CC: [id number] DICTATION DATE: 05/23/20 1126 STEAM TABLE ATTENDANT: 05/23/20 1313 DIS IN 05/23/20 [place] [id number] [place] [address]
== END 2020-05-23 13:32 | disposition home or self-care (01) | DRG 192 ==
LOC: D.ER 17:44 → D.M2 18:44
PROVIDERS: Family Medicine; ADMIT Family Medicine; ATTEND Family Medicine
DX: J44.1 Chronic obstructive pulmonary disease with (acute) exacerbation (principal); E11.9 Type 2 diabetes mellitus without complications; E78.5 Hyperlipidemia, unspecified; I11.0 Hypertensive heart disease with heart failure; I50.9 Heart failure, unspecified

== ENCOUNTER 2020-06-04 15:53 | Observation (INO) | payer MEDICARE ==
[~2020-06-04] VITALS: Ht 160 cm; Wt 75.9 kg
[~2020-06-04 15:53] MED LIST changes: +BRIVIACT PO; +CLONIDINE HCL0.1 MG PO; +IPRAT-ALBUT 0.5-3 ML INH; +MEDROL DOSE PACK4 MG PO; +PROAIR HFA8.5 G1 INH
[2020-06-04 16:32] LABS: BASOPHILS 0.4 % (0-2); EOSINOPHILS 2.2 % (0-7); HEMATOCRIT 28.8 % (42.0-54.0); HEMOGLOBIN 8.3 g/dL (13.5-17.5); IMMATURE GRANULOCYTES 0.4 % (0-5); LYMPHOCYTE ABS# 1.74 10x3/uL (1.32-3.57); LYMPHOCYTES 31.6 % (15-50); MCHC 28.8 g/dL (31.0-37.0); MCV 68.7 fL (80.0-100.0); MONOCYTES 8.5 % (2-11); NEUTROPHIL ABS# 3.14 10x3/uL (1.78-5.38); NEUTROPHILS 56.9 % (40-80); RBC 4.19 10x6/uL (4.20-6.10); RDW 20.3 % (11.5-14.5); WBC 5.5 10x3/uL (4.8-10.8)
[2020-06-04 16:36] LABS: MCH 19.8 pg (26.0-34.0); PLATELET COUNT 208 10x3/uL (130-400)
[2020-06-04 16:44] LABS: APTT 30.4 SECONDS (22.8-39.4); INR 1.09 (0.85-1.17); PROTIME 13.1 SECONDS (11.6-15.0)
[2020-06-04 16:48] LABS: CALC OSMOLALITY 281 mosm/kg (275-300); CALCIUM 8.3 mg/dL (8.5-10.1); CARBON DIOXIDE 28.2 mmol/L (21.0-32.0); CHLORIDE - SERUM 108 mmol/L (98-107); CREATININE - SERUM 0.9 mg/dL (0.6-1.3); GLUCOSE 133 mg/dL (74-106); POTASSIUM - SERUM 4.3 mmol/L (3.5-5.1); SODIUM 140 mmol/L (136-145); UREA NITROGEN 14 mg/dL (7-18); eGFR NON AFRICAN AMERICAN 89 mL/min (90-120)
[2020-06-04 17:08] LABS: ALBUMIN 2.9 g/dL (3.4-5.0); ALKALINE PHOSPHATASE 73 U/L (30-120); ALT (SGPT) 17 U/L (10-68); BILIRUBIN - TOTAL 0.12 mg/dL (0.2-1.3); CKMB 0.8 U/L (0.0-3.6); CREATINE KINASE 56 UL (21-232); PROTEIN - SERUM 6.3 g/dL (6.4-8.2); THYROID STIMULATING HORMONE 1.11 uIU/mL (0.36-3.74)
[2020-06-04 17:16] LABS: TROPONIN-I < 0.017 ng/mL (0.000-0.060)
[2020-06-04 19:33] LABS: CHOL - HDL RATIO 2.5 ratio (2.3-4.9); LDL-HDL RATIO 1.1 ratio (1.5-3.5)
[2020-06-04 20:20] VITALS: BP 157/70
--- NOTE | 2020-06-04 20:28 | NUR ---
report to kam estrella.
[2020-06-04 20:30] VITALS: BP 174/70
--- NOTE | 2020-06-04 20:44 | NUR ---
RECEIVED TO FLOOR, ORIENTED TO ROOM, PAGED/CALLED DR REBOLLEDO FOR CONSULT, AWAITING CALL BACK, PT STATES WEAKNESS AND NUMBNESS ON LEFT SIDE HAS DECREASED, ENCOURAGED PT TO NOTIFY STAFF OF ANY NEEDS, URNIAL AT BEDSIDE, CALL LIGHT IN REACH
[2020-06-04 22:38] VITALS: BP 174/70; Ht 160 cm; Wt 75.9 kg
[2020-06-05] VITALS: BP 126/60
[2020-06-05 04:00] VITALS: BP 128/44
[2020-06-05 06:38] LABS: BASOPHILS 0.7 % (0-2); EOSINOPHILS 2.7 % (0-7); HEMATOCRIT 30.6 % (42.0-54.0); HEMOGLOBIN 8.8 g/dL (13.5-17.5); IMMATURE GRANULOCYTES 0.3 % (0-5); LYMPHOCYTE ABS# 2.29 10x3/uL (1.32-3.57); LYMPHOCYTES 34.3 % (15-50); MCHC 28.8 g/dL (31.0-37.0); MCV 68.3 fL (80.0-100.0); MONOCYTES 8.1 % (2-11); NEUTROPHIL ABS# 3.59 10x3/uL (1.78-5.38); NEUTROPHILS 53.9 % (40-80); RBC 4.48 10x6/uL (4.20-6.10); RDW 20.3 % (11.5-14.5); WBC 6.7 10x3/uL (4.8-10.8)
[2020-06-05 06:40] LABS: MCH 19.6 pg (26.0-34.0); PLATELET COUNT 253 10x3/uL (130-400)
[2020-06-05 06:46] LABS: CALC OSMOLALITY 285 mosm/kg (275-300); CALCIUM 8.4 mg/dL (8.5-10.1); CARBON DIOXIDE 28.8 mmol/L (21.0-32.0); CHLORIDE - SERUM 110 mmol/L (98-107); CREATININE - SERUM 0.9 mg/dL (0.6-1.3); POTASSIUM - SERUM 4.2 mmol/L (3.5-5.1); SODIUM 144 mmol/L (136-145); UREA NITROGEN 12 mg/dL (7-18); eGFR NON AFRICAN AMERICAN 89 mL/min (90-120)
[2020-06-05 07:02] LABS: GLUCOSE 82 mg/dL (74-106)
--- NOTE | 2020-06-05 08:13 | NUR ---
TO MRI PER W/C, SL IN PLACE, NO DISTRESS NOTED, TRANSFERED WITH EASE
[2020-06-05 09:16] VITALS: BP 150/55
[2020-06-05] MEDS ORDERED: ELIQUIS5 MG PO (14:00)
--- NOTE | 2020-06-05 15:17 | NUR ---
REVIEWED D/C PAPERS WITH PT AND CHANGES TO MEDS, IV REMOVED, TIP INTACT, [facility] [facility],
--- NOTE | 2020-06-05 15:50 | NUR ---
TAKEN TO PRIVATE VEHICLE PER W/C, [place] [facility]
== END 2020-06-05 15:50 | disposition home health service (06) ==
LOC: D.ER 15:53 → D.EDHOLD 19:07 → OBSVTIME 19:07 → D.MS 19:56
PROVIDERS: Emergency Medicine; ADMIT Family Medicine; ATTEND Family Medicine
DX: G45.9 Transient cerebral ischemic attack, unspecified (principal); R53.1 Weakness; R20.0 Anesthesia of skin; J44.9 Chronic obstructive pulmonary disease, unspecified; I25.10 Atherosclerotic heart disease of native coronary artery without angina pectoris; E11.40 Type 2 diabetes mellitus with diabetic neuropathy, unspecified; E11.9 Type 2 diabetes mellitus without complications; Z86.73 Personal history of transient ischemic attack (TIA), and cerebral infarction without residual deficits

== ENCOUNTER 2020-08-11 10:23 | Emergency (ER) | payer MEDICARE ==
[~2020-08-11] VITALS: Ht 160 cm; Wt 73.6 kg
[~2020-08-11 10:23] MED LIST changes: +ELIQUIS5 MG PO
[2020-08-11 10:25] VITALS: Ht 160 cm; Wt 73.6 kg
[2020-08-11 11:04] LABS: BASOPHILS 1.1 % (0-2); EOSINOPHILS 2.1 % (0-7); HEMATOCRIT 41.2 % (42.0-54.0); HEMOGLOBIN 12.9 g/dL (13.5-17.5); LYMPHOCYTES 18.4 % (15-50); MCH 25.4 pg (26.0-34.0); MCHC 31.4 g/dL (31.0-37.0); MCV 80.8 fL (80.0-100.0); MEAN PLATELET VOLUME 8.5 fL (7.4-10.4); NEUTROPHILS 70.4 % (40-80); WBC 4.9 10x3/uL (4.8-10.8)
[2020-08-11 11:05] LABS: PLATELET COUNT 161 10x3/uL (130-400)
[2020-08-11 11:16] LABS: CALC OSMOLALITY 289 mosm/kg (275-300); CALCIUM 8.5 mg/dL (8.5-10.1); CARBON DIOXIDE 27.4 mmol/L (21.0-32.0); CHLORIDE - SERUM 107 mmol/L (98-107); GLUCOSE 112 mg/dL (74-106); POTASSIUM - SERUM 3.2 mmol/L (3.5-5.1); SODIUM 144 mmol/L (136-145); UREA NITROGEN 19 mg/dL (7-18); eGFR NON AFRICAN AMERICAN 79 mL/min (90-120)
[2020-08-11 11:23] LABS: ALBUMIN 3.3 g/dL (3.4-5.0); ALKALINE PHOSPHATASE 67 U/L (30-120); ALT (SGPT) 23 U/L (10-68); PROTEIN - SERUM 6.2 g/dL (6.4-8.2); TROPONIN-I < 0.017 ng/mL (0.000-0.060)
[2020-08-11 11:47] LABS: APTT 45.5 SECONDS (22.8-39.4); INR 1.39 (0.85-1.17); PROTIME 15.8 SECONDS (11.6-15.0)
[2020-08-11 12:35] VITALS: BP 123/59
[2020-08-11 15:18] LABS: PLATELET ESTIMATE NORMAL
== END 2020-08-11 12:20 | disposition home or self-care (01) ==
LOC: D.ER 10:23
PROVIDERS: Emergency Medicine
DX: R07.9 Chest pain, unspecified (principal); I10 Essential (primary) hypertension; E11.9 Type 2 diabetes mellitus without complications; Z79.4 Long term (current) use of insulin; I50.9 Heart failure, unspecified; I25.2 Old myocardial infarction; Z95.5 Presence of coronary angioplasty implant and graft; K21.9 Gastro-esophageal reflux disease without esophagitis